=== PATIENT | male | born 1950 | race Caucasian/White ===

== ENCOUNTER 2017-12-08 07:23 | Outpatient (CLI) | payer MEDICARE, OTHER ==
[~2017-12-08] VITALS: Ht 175.3 cm; Wt 50.0 kg
--- NOTE | ~2017-12-08 | HEMODYNAMI ---
PATIENT:ESTHER ROWE MEDICAL RECORD: [id number] : 52 LOCATION:[facility] D.2119 ADMISSION DATE: 12/08/17 Generatedon:12/09/201712:32 Patient name: ESTHER ROWE Patient #: [id number] SSN: : 1950 Date of study: 12/09/2017 Page: Of Hemodynamic Procedure Report Patient Data Patient Demographics Procedure consent was obtained First Name: ESTHER Gender: Male Last Name: JAE : 1950 Patient #: [id number] Age: 67 year(s) Race: Unknown Additional ID: [id number] Contact details Address: [address] [place] [address] State: [place] City: [place] Zip code: [address] Past Medical History Allergies Allergen Reaction Date Comments Reported Penicillins 12/08/2017 Other allergy 12/09/2017 PCN Admission Admission Data Admission Date: 12/08/2017 Admission Time: 7:23 Room #: 2119 Lab Results Lab Result Date: 12/08/2017 Lab Result Time: 0:00 Biochemistry Name Units Result Min Max BUN mg/dl 13 --(--*-)-- 7 18 Creatinine mg/dl 1 --(--*-)-- 0.6 1.3 CBC Name Units Result Min Max Hemoglobin g/dl 11.4 *-(----)-- 13.5 17.5 Procedure Procedure Types Cath Procedure Diagnostic Procedure Sedation Charges Moderate Sedation up to 15 minutes PCI Procedure Coronary Stent Coronary Stent Initial PTCA PTCA Additional Procedure Description Procedure Date Procedure Date: 12/09/2017 Procedure Start Time: 12:00 Procedure End Time: 12:26 Procedure Staff Name Function Pawan Murphy MD Performing Physician Flynn Pete RT Monitor Janet Sousa RT Scrub Yong Blanchard RN Nurse Procedure Data Cath Procedure Fluoroscopy Diagnostic fluoroscopy Total fluoroscopy Time: 8.3 time: 8.3 min min Diagnostic fluoroscopy Total fluoroscopy dose: 474 dose: 474 mGy mGy Contrast Material Contrast Material Type Amount (ml) Isovue 300 99 Entry Location Entry Primary Successful Side Size Upsize Upsize Entry Closure Succes sful Closure Location (Fr) 1 (Fr) 2 (Fr) Remarks Device Remarks Femoral Right 6 Fr Exoseal artery Short Estimated blood loss: 10 ml Procedure Complications No complications Procedure Medications Medication Administration Route Dosage 0.9% NaCl I.V. 100 ml/hr Oxygen etCO2 Nasal cannula 2 l/min Heparin Flush Bag added to field 2 bags (1000units/500ml NS) Lidocaine 2% added to field 20 Versed I.V. 1 mg Fentanyl I.V. 25 mcg Heparin Bolus I.V. 4000 units Fentanyl I.V. 50 mcg Hemodynamics Rest HGB: 11.4 (g/dl) Heart Rate: 65 (bpm) Snapshots Pre Cath Intra NCS Post Cath Vital Signs Time Heart Resp SPO2 etCO2 NIBP (mmHg) Rhythm Pain Sedation Rate (ipm) (%) (mmHg) Status Level (bpm) 11:56:21 64 16 99 23.9 101/60(74) NSR 0 (11) 10(A) , No pain 12:00:58 63 17 100 28.4 91/52(68) NSR 0 (11) 10(A) , No pain 12:05:30 70 22 100 29.9 94/55(64) NSR 0 (11) 10(A) , No pain 12:10:33 72 17 100 25.4 144/78(111) NSR 0 (11) 10(A) , No pain 12:15:14 79 24 100 17.9 148/88(123) NSR 0 (11) 10(A) , No pain 12:19:55 80 23 100 23.9 157/94(129) NSR 0 (11) 10(A) , No pain 12:24:33 83 22 99 3.7 153/95(124) NSR 0 (11) 10(A) , No pain Medications Time Medication Route Dose Verified Delivered Reason Notes Effectiveness by by 11:54:45 0.9% NaCl I.V. 100 Yong Yong Per physician ml/hr Santo Blanchard RN RN 11:55:03 Oxygen etCO2 2 Yong Yong Per physician Nasal l/min Santo cunningham RN RN 11:55:15 Heparin Flush added 2 Ynog Yong used for Bag to bags Santo Blanchard procedure (1000units/500ml field RN RN NS) 11:55:26 Lidocaine 2% added 20ml Yong Yong for local to vial Santo Blanchard anesthetic field RN RN 12:01:17 Versed I.V. 1 mg Yong Yong for sedation Santo Blanchard RN RN 12:01:25 Fentanyl I.V. 25 Yong Yong for sedation mcg Santo Blanchard RN RN 12:01:36 Heparin Bolus I.V. 4000 Yong Yong for units Santo Blanchard anticoagulation RN RN 12:19:46 Fentanyl I.V. 50 Yong Yong for sedation mcg Santo Blanchard RN vascular radiologist Log Time Note 11:30:52 Time tracking: Regular hours (M-F 7:00 - 5:00) 11:30:57 Plan of Care:Hemodynamics will remain stable., Cardiac rhythm will remain stable., Comfort level will be maintained., Respiratory function will remain adequate., Patient/ family verbilizes understanding of procedure., Procedure tolerated without complication., Recovers from procedure without complications.. 11:30:58 Signed procedure consent form obtained from patient. 11:33:05 Janet Sousa RT(R) sent for patient. Start room use. 11:42:57 Patient received from Med II to CCL 1 Alert and oriented. Tansferred to table in Supine position. 11:42:58 Warm blankets applied, and lb hugger turned on for patient comfort. 11:42:58 Correct patient and procedure confirmed by team. 11:43:19 ECG and BP/O2 sat monitors applied to patient. 11:43:20 Pre-procedure instructions explained to patient. 11:43:21 Pre-op teaching completed and patient verbalized understanding. 11:43:22 Family in patients room. 11:43:24 Patient NPO since Midnight. 11:54:45 0.9% NaCl 100 ml/hr I.V. was administered by Yong Blanchard RN; Per physician; 11:55:03 Oxygen 2 l/min etCO2 Nasal cannula was administered by Yong Blanchard RN; Per physician; 11:55:15 Heparin Flush Bag (1000units/500ml NS) 2 bags added to field was administered by Yong Blanchard RN; used for procedure; 11:55:26 Lidocaine 2% 20ml vial added to field was administered by Yong Blanchard RN; for local anesthetic; 11:55:31 Vital chart was started 11:56:23 Baseline sample Acquired. 11:56:26 Rhythm: sinus rhythm 11:56:32 Full Disclosure recording started 11:57:03 H&P Date Dictated: 11/18/2017 Within 30 days and on chart.. 11:57:13 Patient allergic to Other allergyPCN 11:57:14 Is the patient allergic to Iodine/contrast media? No. 11:57:17 Is patient on blood thinner?Yes 11:57:18 Patient diabetic? No. 11:57:22 Previous problem with sedation/anesthesia? No ? 11:57:22 Snore? Yes 11:57:25 Sleep apnea? No 11:57:26 Deviated septum? No 11:57:26 Opens mouth fully? Yes 11:57:27 Sticks out tongue? Yes 11:58:18 Airway obstruction? No ? 11:58:24 Dentures? Yes IN TIGHT 11:58:27 Pre procedure: right dorsailis pedis pulse 2+ Normal; easily identifiable; not easily obliterated 11:58:30 Patient pain scale 0/10 ?. 11:58:34 IV patent on arrival in right forearm with 0.9% NaCl at [facility]. 11:58:37 Lab results completed and on chart. 11:58:40 Right groin area was prepped with chlora-prep and draped in sterile fashion 11:58:40 Alarms reviewed by R. N. 11:58:41 Sharps counted by scrub and verified by R.N. 11:58:44 ACIST Syringe (69813) opened to sterile field. 11:58:45 Bag Decanter () opened to sterile field. 11:58:45 Medline Cath Pack ([id number]) opened to sterile field. 11:58:47 ACIST Hand Control (19635) opened to sterile field. 11:58:47 ACIST Manifold (25443) opened to sterile field. 11:58:48 Tegaderm 4 x 4 (1626W) opened to sterile field. 11:58:51 DIAGNOSTIC WIRE .035 260cm J wire ([id number]) opened to sterile field. 11:59:07 SHEATH Prelude 6Fr 0.035 (YGB-6G-56-035) opened to sterile field. 11:59:07 INFLATOR Merit BasixCompak (PV4196) opened to sterile field. 11:59:12 CHOICE PT Extra Support 182cm wire ([id number]) opened to sterile field. :59: Physician arrived :59: --------ALL STOP TIME OUT------ 11:59:22 Final Timeout: patient, procedure, and site verified with staff and physician. All members of the team are in agreement. :59:23 Right groin site verified by team. :59:25 Physical assessment completed. ASA score P 2 - A patient with mild systemic disease as per Pawan Murphy MD. :59:28 Sedation plan: IV Moderate Sedation Medication:Versed, Fentanyl 12:00:10 Procedure started. 12:00:12 Local anesthetic to right femoral artery with Lidocaine 2% by Pawan Murphy MD.INITIAL ACCESS ONLY 12:00:20 A 6 Fr Short sheath was inserted into the Right Femoral artery 12:00:51 Zero performed for pressure channel P1 12:01:10 GUIDE 6FR EBU 4.0 guide catheter ([id number]) opened to sterile field. 12:01:17 Versed 1 mg I.V. was administered by Yong Blanchard RN; for sedation; 12:01:18 6 Fr EBU 4 guide catheter was inserted over the wire 12:01:25 Fentanyl 25 mcg I.V. was administered by Yong Blanchard RN; for sedation; 12:01:36 Heparin Bolus 4000 units I.V. was administered by Yong Blanchard RN; for anticoagulation; 12:02:06 CHOICE PT ES wire advanced. 12:02:39 Wire advanced across lesion. 12:04:34 The RODRIGO RX 2.5 x 18 stent ([id number]) was advanced then removed because of failure to cross lesion 12:06:09 Inflate balloon Inflation number: 1 A EUPHORA 2.5 x 12 Balloon ([id number]) was prepped and advanced across the Dist CX, then inflated to 15 HUMBERTO for 0:10 (min:sec). 12:06:19 Inflation number: 2 The EUPHORA 2.5 x 12 Balloon ([id number]) was reinflated across the Dist CX, to 15 HUMBERTO for 0:10 (min:sec). 12:06:28 Inflation number: 3 The EUPHORA 2.5 x 12 Balloon ([id number]) was reinflated across the Dist CX, to 15 HUMBERTO for 0:10 (min:sec). 12:08:57 Place stent Inflation Number: 4 A RODRIGO RX 2.5 x 18 stent ([id number]) was prepped and advanced across the Dist CX. The stent was deployed at 15 HUMBERTO for 0:10 (min:sec). 12:09:45 Inflation number: 5 The stent balloon was then re-inflated across the Dist CX to 15 HUMBERTO for 0:10 (min:sec). 12:11:08 Stent catheter was removed intact over wire. 12:11:35 Place stent Inflation Number: 6 A INTEGRITY RX 2.25 x 08 stent ([id number]) was prepped and advanced across the Dist CX. The stent was deployed at 19 HUMBERTO for 0:10 (min:sec). 12:11:52 Stent catheter was removed intact over wire. 12:13:15 Inflation number: 1 The stent balloon was then re-inflated across the Mid CX to 17 HUMBERTO for 0:10 (min:sec). 12:13:21 Inflation number: 2 The stent balloon was then re-inflated across the Mid CX to 21 HUMBERTO for 0:10 (min:sec). 12:14:05 Stent catheter was removed intact over wire. 12:14:05 Wire removed. 12:14:11 CHOICE PT Extra Support 182cm wire ([id number]) opened to sterile field. 12:14:20 CHOICE PT ES wire advanced to OM 1. 12:17:36 Inflate balloon Inflation number: 1 A EUPHORA 1.5 x 12 balloon ([id number]) was prepped and advanced across the 1st Ob Ashley, then inflated to 21 HUMBERTO for 0:10 (min:sec). 12:18:06 Inflation number: 2 The EUPHORA 1.5 x 12 balloon ([id number]) was reinflated across the 1st Ob Ashley, to 21 HUMBERTO for 0:10 (min:sec). 12:18:24 Balloon removed over the wire. 12:18:25 Wire removed. 12:18:25 Guide catheter removed. 12:18:39 EXOSEAL 6Fr (EX600) opened to sterile field. 12:19:27 Sheath removed intact; hemostasis achieved with Exoseal to the Right Femoral artery. 12:19:29 Procedure ended.(Physican Out) 12:19:46 Fentanyl 50 mcg I.V. was administered by Yong Blanchard RN; for sedation; 12:23:06 Fluoroscopy time 08.30 minutes. 12:23:09 Flurop Dose total: 474 12:23:09 Fluoroscopy dose: 474 mGy 12:23:14 Contrast amount:Isovue 300 99ml. 12:23:15 Sharps counted by scrub and verified by R.N. 12:23:16 Insertion/operative site no bleeding no hematoma. 12:23:20 Post-op/insertion site Right Femoral artery dressed using a 4 x 4 and Tegaderm. 12:23:23 Post right femoral artery:stable, soft, clean and dry 12:23:24 Post Procedure Pulses reassessed and unchanged 12:23:26 Post-procedure physical assessment completed. ASA score P 2 - A patient with mild systemic disease as per Pawan Murphy MD. 12:23:28 Post procedure rhythm: unchanged. 12:23:32 Estimated blood loss: 10 ml 12:23:33 Post procedure instruction explained to patient.Patient verbalizes understanding. 12:23:33 Patient needs reinforcement of post procedure teaching. 12:23:54 Procedure type changed to Cath procedure, Diagnostic procedure, Sedation Charges, Moderate Sedation up to 15 minutes, PCI procedure, Coronary Stent, Coronary Stent Initial, PTCA, PTCA Additional 12:26:15 Procedure and supply charges have been captured, reviewed, submitted and are correct. 12:26:18 Procedure Complication : No complications 12:26:20 Vital chart was stopped 12:26:20 See physician's report for complete and final results. 12::24 Report given to Pre/Post Procedure Room. 12:26:27 Patient transfered to Pre/Post Procedure Room with Stretcher. 12::34 Procedure ended. 12::34 Full Disclosure recording stopped 12::42 End room use (Document Last) Intervention Summary Intervention Notes Time ActionType Lesion and Equipment Used Action# Pressure Duration Attributes 12:04:34 Discard RODRIGO RX 2.5 x Stent 18 stent ([id number]) 12:06:09 Inflate Dist CX EUPHORA 2.5 x 1 15 00:10 balloon 12 Balloon ([id number]) 12:06:19 Reinflate Dist CX EUPHORA 2.5 x 2 15 00:10 balloon 12 Balloon ([id number]) 12:06:28 Reinflate Dist CX EUPHORA 2.5 x 3 15 00:10 balloon 12 Balloon ([id number]) 12:08:57 Place stent Dist CX RODRIGO RX 2.5 x 4 15 00:10 18 stent ([id number]) 12:09:45 Reinflate Dist CX RODRIGO RX 2.5 x 5 15 00:10 stent 18 stent balloon ([id number]) 12:11:35 Place stent Dist CX INTEGRITY RX 6 19 00:10 2.25 x 08 stent ([id number]) 12:13:15 Reinflate Mid CX RODRIGO RX 2.5 x 1 17 00:10 stent 18 stent balloon ([id number]) 12:13:21 Reinflate Mid CX RODRIOG RX 2.5 x 2 21 00:10 stent 18 stent balloon ([id number]) 12:17:36 Inflate 1st Ob Ashley EUPHORA 1.5 x 1 21 00:10 balloon 12 balloon ([id number]) 12:18:06 Reinflate 1st Ob Ashley EUPHORA 1.5 x 2 21 00:10 balloon 12 balloon ([id number]) Device Usage Item Name Manufacture Quantity Catalog Number Hospital Part Current Minimal Lot# / Charge Number Stock Stock Serial# Code ACIST Syringe Acist 1 38788 175483 391756 888267 20 (84966) [employer] Bag Decanter Microtek 1 2001S 569174 30944 201291 5 () Medical Inc. Medline Cath Cardinal 1 [id number] 607214 06455 116311 5 [facility] ([id number]) ACIST Hand Acist 1 84004 665961 214160 248796 5 Control (04264) [employer] ACIST Manifold Acist 1 89233 293521 609736 958252 5 (20680) [employer] Tegaderm 4 x 4 3M 1 1626W 448403 432966 655456 5 (1626W) DIAGNOSTIC WIRE St Johann 1 883890 972560 290686 190293 30 .035 260cm J wire (213221) SHEATH Prelude Merit 1 PCA-7I-03-35 680258 5749935 576613 5 6Fr 0.035 Medical (GXU-7R-22-035) INFLATOR Merit Merit 1 [id number] 021702 145640 511010 15 Package [employer]bur[employer] (PZ3192) CHOICE PT Extra Vershire 2 [id number] 930590 634543 694279 5 Support 182cm Scientific wire ([id number]) GUIDE 6FR EBU Medtronic 1 [id number] 177379 73961 477639 1 4.0 guide catheter ([id number]) RODRIGO RX 2.5 x Medtronic 1 [id number] 114149 8754484 210803 5 [id number] 18 stent ([id number]) EUPHORA 2.5 x Medtronic 1 [id number] 508554 522814 859344 5 [id number] 12 Balloon ([id number]) INTEGRITY RX Medtronic 1 [id number] 941457 623027 477276 5 [id number] 2.25 x 08 stent ([id number]) EUPHORA 1.5 x Medtronic 1 [id number] 578960 976965 781702 5 [id number] 12 balloon ([id number]) EXOSEAL 6Fr Cardinal 1 EX600 103870 960252 347261 10 (EX600) Health Signature Audit [place] Stage Time Signature Unsigned Intra-Procedure 12/09/2017 Flynn Pete 12:31:57 PM RT(R) Signatures Monitor : Flynn Pete RT Signature : Date : Time : [facility] [address] [place] [address]
--- NOTE | ~2017-12-08 | OP ---
PATIENT NAME: ESTHER ROWE MEDICAL RECORD: [id number] :52 LOCATION:D.CAT ADMISSION DATE: SURGEON: LETICIA ALAN MD DATE OF OPERATION: 12/09/2017 PROCEDURES: 1. PTCA stent left circumflex. 2. PTCA first obtuse marginal. 3. Selective coronary angiography. INDICATION: Angina and coronary artery disease. PROCEDURE IN DETAIL: After informed consent was obtained and after detailed explanation of risks, benefits as well as alternative therapies, the patient elected to proceed with angiogram and angioplasty. The right femoral area was prepped and draped in normal sterile fashion. Right femoral artery was cannulated via modified Seldinger technique with placement of 6-[place] sheath. All catheters exchanged through this sheath. FINDINGS: The left circumflex has 95% stenosis distally. This was addressed with a 2.5 x 18 Colby and 2.25 x 8 mm Integrity, this caused plaque shift into the first obtuse marginal. This was ballooned with a 1.5 balloon. Result was 0% residual. OVERALL IMPRESSION: Successful PTCA stent of the left circumflex going from 95% initial stenosis to 0% residual. TRANSINT:[id number] Voice Confirmation ID: [id number] DOCUMENT ID: [id number] LETICIA ALAN MD at 1403 CC: [id number] DICTATION DATE: 12/09/17 1223 LOAD DISPATCHER LOCAL: 12/09/17 1329 DEP CLI 12/09/17 [place] [address]
--- NOTE | ~2017-12-08 | HEMODYNAMI ---
PATIENT:ESTHER ROWE MEDICAL RECORD: [id number] : 52 LOCATION:[facility] ADMISSION DATE: 12/08/17 Generatedon:12/08/20179:45 Patient name: ESTHER ROWE Patient #: [id number] SSN: : 1950 Date of study: 12/08/2017 Page: Of Hemodynamic Procedure Report Patient Data Patient Demographics Procedure consent was obtained First Name: ESTHER Gender: Male Last Name: JAE : 1950 Patient #: [id number] Age: 67 year(s) Race: Unknown Additional ID: [id number] Contact details [address]: [address] [place] [address] State: [place] City: [place] Zip code: [address] Past Medical History Allergies Allergen Reaction Date Comments Reported Penicillins 12/08/2017 Admission Admission Data Admission Date: 12/08/2017 Admission Time: 7:23 Lab Results Lab Result Date: 12/08/2017 Lab Result Time: 0:00 Biochemistry Name Units Result Min Max BUN mg/dl 13 --(--*-)-- 7 18 Creatinine mg/dl 1 --(--*-)-- 0.6 1.3 CBC Name Units Result Min Max Hemoglobin g/dl 11.4 *-(----)-- 13.5 17.5 Procedure Procedure Types Cath Procedure Diagnostic Procedure [facility] w/Coronaries PCI Procedure Coronary Stent Coronary Stent Initial Procedure Description Procedure Date Procedure Date: 12/08/2017 Procedure Start Time: 9:32 Procedure End Time: 9:45 Procedure Staff Name Function Pawan Murphy MD Performing Physician Flynn Pete RT Monitor Janet Sousa RT Scrub Yong Blanchard RN Nurse Arleth Pandey RN Contract Implementation Analyst Procedure Data Cath Procedure Fluoroscopy Diagnostic fluoroscopy Total fluoroscopy Time: 3.5 time: 3.5 min min Diagnostic fluoroscopy Total fluoroscopy dose: 276 dose: 276 mGy mGy Contrast Material Contrast Material Type Amount (ml) Isovue 300 74 Entry Location Entry Primary Successful Side Size Upsize Upsize Entry Closure Lloyd ccessful Closure Location (Fr) 1 (Fr) 2 (Fr) Remarks Device Remarks Radial Right 6 Fr Mechanical artery Short Compression Estimated blood loss: 10 ml Diagnostic catheters Device Type Used For End Catheter Placement DIAGNOSTIC [place] 110cm 5 Procedure Fr catheter ([id number]) Procedure Complications No complications Procedure Medications Medication Administration Route Dosage 0.9% NaCl I.V. 100 ml/hr Oxygen etCO2 Nasal cannula 2 l/min Heparin Flush Bag added to field 2 bags (1000units/500ml NS) Lidocaine 2% added to field 20 Radial Cocktail added to field 1 syringe (Verapomil 2mg/Nitro 400mcg/Heparin 1500units) Versed I.V. 0.5 mg Fentanyl I.V. 25 mcg Radial Cocktail I.A. 1 syringe (Verapomil 2mg/Nitro 400mcg/Heparin 1500units) Heparin Bolus I.V. 4000 units Hemodynamics Rest HGB: 11.4 (g/dl) Heart Rate: 69 (bpm) Snapshots Pre Cath Intra NCS Post Cath Vital Signs Time Heart Resp SPO2 etCO2 NIBP Rhythm Pain Sedation Rate (ipm) (%) (mmHg) (mmHg) Status Level (bpm) 9:20:45 71 24 100 15.7 101/68(83) NSR 0 (11) 10(A) , No pain 9:25:17 71 22 100 20.2 99/61(83) NSR 0 (11) 10(A) , No pain 9:29:50 71 23 100 15.7 96/62(80) NSR 0 (11) 10(A) , No pain 9:34:22 80 20 100 17.9 84/53(71) NSR 0 (11) 10(A) , No pain 9:38:53 75 22 96 1.4 81/50(64) NSR 0 (11) 10(A) , No pain 9:43:47 76 18 99 24.7 109/68(92) NSR 0 (11) 10(A) , No pain Medications Time Medication Route Dose Verified Delivered Reason Note s Effectiveness by by 9:18:50 0.9% NaCl I.V. 100 Yong Yong Per physician ml/hr Santo Blanchard RN RN 9:19:02 Oxygen etCO2 2 l/min Yong Yong Per physician Nasal Santo Blanchard cannula RN RN 9:19:22 Heparin Flush added 2 bags Yong Yong used for Bag to Santo Blanchard procedure (1000units/500ml field RN RN NS) 9:19:34 Lidocaine 2% added 20ml Yong Yong for local to vial Lorigan Santo anesthetic field RN RN 9:19:55 Radial Cocktail added 1 Yong Yong used for (Verapomil to syringe Lorigan Santo procedure 2mg/Nitro RN RN 400mcg/Heparin 1500units) 9:30:27 Versed I.V. 0.5 mg Yong Yong for sedation Santo Blanchard RN RN 9:30:37 Fentanyl I.V. 25 mcg Yong Yong for sedation Santo Blanchard RN RN 9:33:14 Radial Cocktail I.A. 1 Yong Pawan for (Verapomil syringe Lorigan Tauth MD vasodilation 2mg/Nitro RN 400mcg/Heparin 1500units) 9:37:21 Heparin Bolus I.V. 4000 Yong Yong for units Lorashly Blanchard anticoagulation RN recreation therapy director Log Time Note 9:06:11 Arleth Pandey RN sent for patient. Start room use. 9:06:12 Time tracking: Regular hours (M-F 7:00 - 5:00) 9:06:16 Plan of Care:Hemodynamics will remain stable., Cardiac rhythm will remain stable., Comfort level will be maintained., Respiratory function will remain adequate., Patient/ family verbilizes understanding of procedure., Procedure tolerated without complication., Recovers from procedure without complications.. 9:06:28 H&P Date Dictated: 11/18/2017 Within 30 days and on chart., H&P Addendum completed by physician on day of procedure. (MUST COMPLETE FOR ALL OUTPATIENTS). 9:06:35 Patient allergic to Penicillins 9:08:45 Lab Result : BUN 13 mg/dl 9:08:45 Lab Result : Creatinine 1 mg/dl 9:08:45 Lab Result : Hemoglobin 11.4 g/dl 9:12:34 Patient received from Pre/Post Procedure Room to CCL 1 Alert and oriented. Tansferred to table in Supine position. 9:12:35 Warm blankets applied, and lb hugger turned on for patient comfort. 9:12:36 Correct patient and procedure confirmed by team. 9:12:37 Signed procedure consent form obtained from patient. 9:12:38 ECG and BP/O2 sat monitors applied to patient. 9:18:50 0.9% NaCl 100 ml/hr I.V. was administered by Yong Blanchard RN; Per physician; 9:19:02 Oxygen 2 l/min etCO2 Nasal cannula was administered by Yong Blanchard RN; Per physician; 9:19:22 Heparin Flush Bag (1000units/500ml NS) 2 bags added to field was administered by Yong Blanchard RN; used for procedure; 9:19:34 Lidocaine 2% 20ml vial added to field was administered by Yong Blanchard RN; for local anesthetic; 9:19:55 Radial Cocktail (Verapomil 2mg/Nitro 400mcg/Heparin 1500units) 1 syringe added to field was administered by Yong Blanchard RN; used for procedure; 9:19:57 Vital chart was started 9:27:09 Baseline sample Acquired. 9:27:14 Rhythm: sinus rhythm 9:27:15 Full Disclosure recording started 9:27:16 Pre-procedure instructions explained to patient. 9:27:16 Pre-op teaching completed and patient verbalized understanding. 9:27:18 Family in waiting room. 9:27:20 Patient NPO since Midnight. 9:27:22 Is the patient allergic to Iodine/contrast media? No. 9:27:23 Is patient on blood thinner?Yes 9:27:27 ACC The patient was administered the following blood thiners within the last 24 hours: ACCPlavix 9:27:29 Patient diabetic? No. 9:27:32 Previous problem with sedation/anesthesia? No ? 9:27:32 Snore? Yes 9:27:33 Sleep apnea? Yes 9:27:34 Deviated septum? No 9:27:35 Opens mouth fully? Yes 9:27:35 Sticks out tongue? Yes 9:27:37 Airway obstruction? No ? 9:27:40 Dentures? Yes in tight 9:27:46 Patient pain scale 0/10 ?. 9:27:47 Modified Branden's test Ulnar < 7 seconds 9:27:59 IV patent on arrival in right forearm with 0.9% NaCl at [facility]. 9:28:02 Lab results completed and on chart. 9:28:07 Right Radial & Right Groin area was prepped with chlora-prep and draped in sterile fashion 9:28:08 Alarms reviewed by R. N. 9:28:09 Sharps counted by scrub and verified by R.N. 9:28:11 Use device set Radial Dx or PCI 9:28:12 ACIST Syringe (19162) opened to sterile field. 9:28:12 Medline Cath Pack ([id number]) opened to sterile field. 9:28:13 ACIST Hand Control (92569) opened to sterile field. 9:28:14 ACIST Manifold (28337) opened to sterile field. 9:28:14 Tegaderm 4 x 4 (1626W) opened to sterile field. 9:28:15 MBrace Wrist Support ([id number]) opened to sterile field. 9:28:17 Bag Decanter (2002S) opened to sterile field. 9:28:18 DIAGNOSTIC WIRE .035 260cm J wire (967182) opened to sterile field. 9:28:19 SHEATH 6Fr Prelude Radial ([id number]) opened to sterile field. 9:28:41 Physician arrived 9::42 --------ALL STOP TIME OUT------ 9:28:42 Final Timeout: patient, procedure, and site verified with staff and physician. All members of the team are in agreement. 9:28:44 Right Radial & Right Groin site verified by team. 9:28:46 Physical assessment completed. ASA score P 2 - A patient with mild systemic disease as per Pawan Murphy MD. 9:28:48 Sedation plan: IV Moderate Sedation Medication:Versed, Fentanyl 9:30:27 Versed 0.5 mg I.V. was administered by Yong Blanchard RN; for sedation; 9:30:37 Fentanyl 25 mcg I.V. was administered by Yogn Blanchard RN; for sedation; 9:32:20 Procedure started. 9:32:24 Local anesthetic to right radial artery with Lidocaine 2% by Pawan Murphy MD.INITIAL ACCESS ONLY 9:32:32 A 6 Fr Short sheath was inserted into the Right Radial artery 9:32:37 A DIAGNOSTIC [place] 110cm 5 Fr catheter (410278) was advanced over the wire and used for Procedure. 9:33:01 LV gram done using ABBOTT 9:33:03 Injector settings: Ml/sec: 5, Volume: 15, 9:33:14 Radial Cocktail (Verapomil 2mg/Nitro 400mcg/Heparin 1500units) 1 syringe I.A. was administered by Pawan Murphy MD; for vasodilation; 9:33:19 EF : 50 % 9:33:39 RCA angiography performed. 9:34:17 CHOICE PT Extra Support 182cm wire ([id number]) opened to sterile field. 9:34:18 INFLATOR Merit BasixCompak (IS9290) opened to sterile field. 9:34:23 LCA angiography performed. 9:36:48 Catheter exchanged over wire. 9:36:58 GUIDE 6FR AR 2.0 catheter (AH0EC70) opened to sterile field. 9:37:09 6 Fr AR 2.0 guide catheter was inserted over the wire 9:37:15 CHOICE PT ES wire advanced. 9:37:21 Heparin Bolus 4000 units I.V. was administered by Yong Blanchard RN; for anticoagulation; 9:37:47 Wire advanced across lesion. 9:39:05 Place stent Inflation Number: 1 A RODRIGO RX 3.0 x 38 stent ([id number]) was prepped and advanced across the Mid RCA. The stent was deployed at 19 HUMBERTO for 0:10 (min:sec). 9:39:27 Inflation number: 2 The stent balloon was then re-inflated across the Mid RCA to 21 HUMBERTO for 0:10 (min:sec). 9:40:17 Inflation number: 3 The stent balloon was then re-inflated across the Mid RCA to 7 HUMBERTO for 0:15 (min:sec). 9:41:01 Stent catheter was removed intact over wire. 9:41:03 Wire removed. 9:41:03 Guide catheter removed. 9:41:06 TR BAND Standard ([id number]) opened to sterile field. 9:41:14 Sheath removed intact; hemostasis achieved with Mechanical Compression to the Right Radial artery. 9:41:16 Procedure ended.(Physican Out) 9:43:32 Fluoroscopy time 03.50 minutes. 9:43:38 Fluoroscopy dose: 276 mGy 9:43:38 Flurop Dose total: 276 9:43:43 Contrast amount:Isovue 300 74ml. 9:43:44 Sharps counted by scrub and verified by R.N. 9:43:46 TR band inflated with 10cc of air. 9:43:47 Insertion/operative site no bleeding no hematoma. 9:43:53 Post right radial artery:stable, soft, clean and dry 9:43:54 Post Procedure Pulses reassessed and unchanged 9:43:56 Post-procedure physical assessment completed. ASA score P 2 - A patient with mild systemic disease as per Pawan Murphy MD. 9:43:58 Post procedure rhythm: unchanged. 9:44:06 Estimated blood loss: 10 ml 9:44:08 Post procedure instruction explained to patient.Patient verbalizes understanding. 9:44:08 Patient needs reinforcement of post procedure teaching. 9:44:23 Procedure type changed to Cath procedure, Diagnostic procedure, LHC, LHC w/Coronaries, PCI procedure, Coronary Stent, Coronary Stent Initial 9:44:58 Procedure and supply charges have been captured, reviewed, submitted and are correct. 9:44:59 Procedure Complication : No complications 9:45:01 Vital chart was stopped 9:45:02 See physician's report for complete and final results. 9:45:03 Report given to PCU. 9:45:07 Patient transfered to PCU with Stretcher. 9:45:09 Procedure ended. 9:45:09 Full Disclosure recording stopped 9:45:27 End room use (Document Last) Intervention Summary Intervention Notes Time ActionType Lesion and Equipment Used Action# Pressure Duration Attributes 9:39:05 Place stent Mid RCA RODRIGO RX 3.0 x 1 19 00:10 38 stent ([id number]) 9:39:27 Reinflate Mid RCA RODRIGO RX 3.0 x 2 21 00:10 stent 38 stent balloon ([id number]) 9:40:17 Reinflate Mid RCA RODRIGO RX 3.0 x 3 7 00:15 stent 38 stent balloon ([id number]) Device Usage Item Name Manufacture Quantity Catalog Number Hospital Part Current Minimal Lot# / Charge Number Stock Stock Serial# Code ACIST Syringe Acist 1 27285 624700 913195 373712 20 (69326) Medical Systems Re[employer]uron Group Medline Cath Cardinal 1 [id number] 528707 58314 755890 5 Pack Health ([id number]) ACIST Hand Acist 1 31294 487687 205517 666616 5 Control (70686) Medical Systems Inc ACIST Manifold Acist 1 13227 275820 947028 580638 5 (99474) Medical Systems Inc Tegaderm 4 x 4 3M 1 1626W 891620 406588 040138 5 (1626W) MBrace Wrist Advanced 1 140-0250-00 603915 70451 898500 5 Support Vascular ([id number]) Dynamics Bag Decanter Microtek 1 2002S 508514 70677 926873 5 (2001S) Medical Inc. DIAGNOSTIC WIRE St Johann 1 581891 354294 482823 634649 30 .035 260cm J wire (162012) SHEATH 6Fr Merit 1 [id number] 402972 044752 250854 5 Prelude Radial Medical ([id number]) DIAGNOSTIC Terumo 1 40-2303 979281 705697 126121 5 [place] 110cm 5 Fr catheter (218103) CHOICE PT Extra Vilas 1 [id number] 681977 037845 840967 5 Support 182cm Scientific wire ([id number]) INFLATOR Merit Merit 1 JI4795 357070 824482 254966 15 Exhibition A Medical ([id number]) GUIDE 6FR AR Medtronic 1 [id number] 799986 13823 992868 1 2.0 catheter ([id number]) RODRIGO RX 3.0 x Medtronic 1 [id number] 814152 0276769 678887 5 [id number] 38 stent ([id number]) TR BAND Terumo 1 [id number] 450311 190396 011513 40 Standard ([id number]) Signature Audit [place] Stage Time Signature Unsigned Intra-Procedure 12/08/2017 Flynn Pete 9:45:48 AM RT(R) Signatures Monitor : Flynn Pete RT Signature : Date : Time : [facility] [address] [place] [address]
--- NOTE | ~2017-12-08 | OP ---
PATIENT NAME: ESTHER ROWE MEDICAL RECORD: [id number] :52 LOCATION:D.CAT ADMISSION DATE: SURGEON: LETICIA ALAN MD DATE OF OPERATION: 12/08/2017 PROCEDURES: 1. PTCA stent RCA. 2. Left heart catheterization. 3. Selective coronary angiography. 4. Left ventriculogram. INDICATION: Angina and coronary artery disease. PROCEDURE IN DETAIL: After informed consent was obtained and after detailed explanation of risks, benefits as well as alternative therapies, the patient elected to proceed with angiogram and angioplasty. The right radial area was prepped and draped in normal sterile fashion. Right radial artery was cannulated via modified Seldinger technique with placement of 6-Maltese sheath. All catheters exchanged through this sheath. FINDINGS: Left ventriculogram was performed in standard 30-degree ABBOTT view reveals good cardiac wall motion throughout all segments. Overall ejection fraction preserved at 50%. SELECTIVE CORONARY ANGIOGRAPHY: 1. Left main is with no significant angiographic disease. 2. Left anterior descending has at least 70% stenosis in the proximal mid vessel. 3. Left circumflex has a long area of 80% and 90% stenosis throughout the mid vessel. 4. The right coronary has a long area of 80% and 90% stenosis throughout the mid vessel. PTCA STENT OF THE RCA: The stent used was a 3.0 x 38 mm Col[place]. Result was 0% residual stenosis. OVERALL IMPRESSION: Successful PTCA stent of the RCA going from 90% initial stenosis to 0% residual. PLAN: PTCA stent of the LAD and circumflex in the near future. TRANSINT:[id number] Voice Confirmation ID: [id number] DOCUMENT ID: [id number] LETICIA ALAN MD at 1403 CC: [id number] DICTATION DATE: 12/08/17 0945 BICYCLE REPAIRMAN: 12/08/17 1118 [facility] CLI 12/09/17 [place] [id number]
--- NOTE | ~2017-12-08 | DS ---
PATIENT:ESTHER FOLEY :52 MEDICAL RECORD: [id number] DISCHARGE SUMMARY ADMISSION DATE: 12/08/17 DISCHARGE DATE: 12/09/17 DATE OF DISCHARGE: 12/09/2017 DISCHARGE DIAGNOSES: 1. Angina. 2. Coronary artery disease. 3. Percutaneous transluminal coronary angioplasty stent of right coronary artery and left circumflex this admission. HOSPITAL COURSE: Mr. Foley presents with anginal symptomatology, found to have 3-vessel coronary artery disease, underwent successful PTCA stent of the RCA and circumflex. He was discharged home with the addition of aspirin and Plavix to his medical regimen and will be brought back next week for PTCA stent of the LAD. TRANSINT:[id number] Voice Confirmation ID: [id number] DOCUMENT ID: [id number] LETICIA ALAN MD at 1403 CC: [id number] DICTATION DATE: 12/09/17 1224 PAVILION CUTTER: 12/09/17 1511 [facility] CLI 12/09/17 [place] [address] [place] [address]
[2017-12-08] MEDS ORDERED: FISH OIL 1,0001 CA1 PO (07:33)
[2017-12-08] MEDS ORDERED: PLAVIX75 MG PO (07:33)
[2017-12-08] MEDS ORDERED: BAYER CHEWABLE81 MG PO (07:33)
[2017-12-08] MEDS ORDERED: CO Q-10200 MG PO (07:34)
[2017-12-08 07:54] VITALS: BP 123/69; BMI 16.2
[2017-12-08 08:07] LABS: BASOPHILS 0.2 % (0-2); EOSINOPHILS 0.6 % (0-7); HEMATOCRIT 33.1 % (42.0-54.0); HEMOGLOBIN 11.4 g/dL (13.5-17.5); IMMATURE GRANULOCYTES 0.3 % (0-5); LYMPHOCYTES 4.8 % (15-50); MCH 30.9 pg (26.0-34.0); MCHC 34.4 g/dL (31.0-37.0); MCV 89.7 fL (80.0-100.0); MEAN PLATELET VOLUME 8.4 fL (7.4-10.4); MONOCYTES 12.4 % (2-11); NEUTROPHILS 81.7 % (40-80); PLATELET COUNT 388 10x3/uL (130-400); RBC 3.69 10x6/uL (4.20-6.10); WBC 6.6 10x3/uL (4.8-10.8)
[2017-12-08 08:17] LABS: CALC OSMOLALITY 256 mosm/kg (275-300); CALCIUM 9.1 mg/dL (8.5-10.1); CHLORIDE - SERUM 94 mmol/L (98-107); GLUCOSE 100 mg/dL (74-106); POTASSIUM - SERUM 4.8 mmol/L (3.5-5.1); SODIUM 128 mmol/L (136-145); UREA NITROGEN 13 mg/dL (7-18); eGFR NON AFRICAN AMERICAN 79 mL/min (90-120)
[2017-12-08 10:23] VITALS: BP 103/63; Ht 175.3 cm; Wt 50.0 kg
[2017-12-08 11:40] VITALS: BP 109/66
[2017-12-08 15:51] VITALS: BP 112/71
[2017-12-08 20:00] VITALS: BP 139/79
[2017-12-09] VITALS: BP 109/64; BP 133/73
[2017-12-09 04:00] VITALS: BP 98/66
[2017-12-09 07:51] VITALS: BP 102/64
[2017-12-09 11:25] VITALS: BP 103/64
[2017-12-09] MEDS ORDERED: BAYER CHEWABLE81 MG PO (12:39)
== END 2017-12-09 17:10 | disposition home or self-care (01) ==
LOC: D.M2 07:23 → D.CATH 07:23 → D.M2 09:06 → D.CATH 09:30 → D.CLR 12-09 12:39 → D.CATH 12-09 17:10
PROVIDERS: Internal Medicine Interventional Cardiology
DX: I25.119 Atherosclerotic heart disease of native coronary artery with unspecified angina pectoris (principal); R94.30 Abnormal result of cardiovascular function study, unspecified; R06.02 Shortness of breath; I42.0 Dilated cardiomyopathy; E78.5 Hyperlipidemia, unspecified; I50.9 Heart failure, unspecified; Z01.812 Encounter for preprocedural laboratory examination
CPT/HCPCS: 93458; 92921; C9600 ×2

== ENCOUNTER → 2017-12-15 07:27 | Outpatient (CLI) | payer MEDICARE, OTHER ==
[~2017-12-15] VITALS: Ht 175.3 cm; Wt 48.6 kg
--- NOTE | ~2017-12-15 | HEMODYNAMI ---
PATIENT:ESTHER ROWE MEDICAL RECORD: [id number] : 52 LOCATION:[facility] ADMISSION DATE: 12/15/17 Generatedon:12/15/20179:43 Patient name: ESTHER ROWE Patient #: [id number] SSN: : 1950 Date of study: 12/15/2017 Page: Of Hemodynamic Procedure Report Patient Data Patient Demographics Procedure consent was obtained First Name: ESTHER Gender: Male Last Name: JAE : 1950 Patient #: [id number] Age: 67 year(s) Race: Unknown Additional ID: [id number] Contact details [address]: [address] [place] [address] State: [place] City: [place] Zip code: [address] Past Medical History Allergies Allergen Reaction Date Comments Reported Penicillins 12/08/2017 Other allergy 12/09/2017 PCN Admission Admission Data Admission Date: 12/15/2017 Admission Time: 7:27 Procedure Procedure Types Cath Procedure PCI Procedure Coronary Stent Coronary Stent Initial Procedure Description Procedure Date Procedure Date: 12/15/2017 Procedure Start Time: 9:28 Procedure End Time: 9:40 Procedure Staff Name Function Pawan Murphy MD Performing Physician Mary Ellen Starks RT Scrub Arleth Pandey RN Nurse Steve Bennett RT Monitor Procedure Data Cath Procedure Fluoroscopy Diagnostic fluoroscopy Total fluoroscopy Time: 1.8 time: 1.8 min min Diagnostic fluoroscopy Total fluoroscopy dose: 242 dose: 242 mGy mGy Contrast Material Contrast Material Type Amount (ml) Isovue 300 56 Entry Location Entry Primary Successful Side Size Upsize Upsize Entry Closure Lloyd ccessful Closure Location (Fr) 1 (Fr) 2 (Fr) Remarks Device Remarks Radial Right 6 Fr Mechanical artery Short Compression Estimated blood loss: 10 ml Procedure Complications No complications Procedure Medications Medication Administration Route Dosage Oxygen NC 2 l/min Lidocaine 1% added to field 20 Heparin Flush Bag added to field 2 bags (1000units/500ml NS) 0.9% NaCl I.V. 100 ml/hr Versed I.V. 1 mg Fentanyl I.V. 50 mcg Radial Cocktail I.A. 1 syringe (Verapomil 2mg/Nitro 400mcg/Heparin 1500units) Versed I.V. 1 mg Fentanyl I.V. 50 mcg Heparin Bolus I.V. 4000 units Hemodynamics Rest HGB: 11.4 (g/dl) Heart Rate: 77 (bpm) Snapshots Pre Cath Intra NCS Post Cath Vital Signs Time Heart Resp SPO2 etCO2 NIBP Rhythm Pain Sedation Rate (ipm) (%) (mmHg) (mmHg) Status Level (bpm) 8:56:10 77 24 96 11.9 102/64(79) NSR 0 (11) 10(A) , No pain 9:00:16 75 24 96 0 106/69(89) NSR 0 (11) 10(A) , No pain 9:04:19 76 24 95 20.2 100/66(84) NSR 0 (11) 10(A) , No pain 9:08:23 72 19 97 16.4 100/57(72) NSR 0 (11) 10(A) , No pain 9:12:27 72 18 96 26.9 98/54(70) NSR 0 (11) 10(A) , No pain 9:16:29 72 18 98 26.9 94/60(70) NSR 0 (11) 10(A) , No pain 9:20:28 71 15 99 30.7 103/58(76) NSR 0 (11) 10(A) , No pain 9:24:32 73 20 99 28.4 92/59(72) NSR 0 (11) 10(A) , No pain 9:28:31 71 18 100 29.9 97/58(73) NSR 0 (11) 9(A) , No pain 9:32:35 82 21 96 26.2 85/50(64) NSR 0 (11) 9(A) , No pain 9:36:35 80 18 98 0 81/53(61) NSR 0 (11) 9(A) , No pain 9:38:36 78 17 97 29.2 85/53(62) NSR 0 (11) 10(A) , No pain Medications Time Medication Route Dose Verified Delivered Reason Notes Effectiveness by by 9:04:51 Oxygen NC 2 l/min Pawan Reinoso used for Jeffrey Pandey RN procedure 9:15:58 Lidocaine 1% added 20ml Pawan Villalta for local to vial Jeffrey Murphy MD anesthetic field 9:16:06 Heparin Flush added 2 bags Pawan Villalta used for Bag to Jeffrey Murphy MD procedure (1000units/500ml field NS) 9:16:15 0.9% NaCl I.V. 100 Pawan Reinoso Per physician ml/hr Jeffrey Pandey RN 9:23:14 Versed I.V. 1 mg Pawan Reinoso for sedation Jeffrey Pandey RN 9:23:20 Fentanyl I.V. 50 mcg Pawan Reinoso for sedation Jeffrey Pandey RN 9:29:27 Radial Cocktail I.A. 1 Pawan Villalta for (Verapomil syringe Jeffrey Murphy MD vasodilation 2mg/Nitro 400mcg/Heparin 1500units) 9:29:50 Versed I.V. 1 mg Pawan Villalta for sedation Jeffrey Murphy MD 9:29:53 Fentanyl I.V. 50 mcg Pawan Villalta for sedation Jeffrey Murphy MD 9:30:52 Heparin Bolus I.V. 4000 Pawan Reinoso for verif ied units Jeffrey Pandey RN anticoagulation with dr murphy Procedure Log Time Note 8:02:43 Diagnostic Cath Status : Elective 8:03:06 Time tracking: Regular hours (M-F 7:00 - 5:00) 8:03:11 Plan of Care:Hemodynamics will remain stable., Cardiac rhythm will remain stable., Comfort level will be maintained., Respiratory function will remain adequate., Patient/ family verbilizes understanding of procedure., Procedure tolerated without complication., Recovers from procedure without complications.. 8:15:05 Mary Ellen Starks RT(R) sent for patient. Start room use. 8:49:42 Patient received from Pre/Post Procedure Room to CCL 2 Alert and oriented. Tansferred to table in Supine position. 8:49:43 Warm blankets applied, and lb hugger turned on for patient comfort. 8:49:44 Correct patient and procedure confirmed by team. 8:49:45 Signed procedure consent form obtained from patient. 8:49:46 ECG and BP/O2 sat monitors applied to patient. 8:54:54 Vital chart was started 8:54:56 Full Disclosure recording started 8:55:00 H&P Date Dictated: 12/15/2017 Within 30 days and on chart., H&P Addendum completed by physician on day of procedure. (MUST COMPLETE FOR ALL OUTPATIENTS). 8:55:02 Pre-procedure instructions explained to patient. 8:55:02 Pre-op teaching completed and patient verbalized understanding. 8:55:04 Family in patients room. 8:55:07 Patient NPO since Midnight. 8:55:09 Is the patient allergic to Iodine/contrast media? No. 8:55:10 Was the patient premedicated? No 8:55:11 Is patient on blood thinner?Yes 8:55:13 ACC The patient was administered the following blood thiners within the last 24 hours: ACCPlavix 8:55:15 Patient diabetic? No. 8:55:18 Previous problem with sedation/anesthesia? No ? 8:55:20 Snore? Yes 8:55:21 Sleep apnea? Yes 8:55:22 Deviated septum? No 8:55:22 Opens mouth fully? Yes 8:55:23 Sticks out tongue? Yes 8:55:30 Airway obstruction? Yes emphysema 8:55:35 Dentures? Yes in tight 8:55:38 Pre procedure: right dorsailis pedis pulse 2+ Normal; easily identifiable; not easily obliterated 8:55:41 Modified Branden's test Ulnar < 7 seconds 8:55:44 Patient pain scale 0/10 ?. 8:55:49 IV patent on arrival in left forearm with 0.9% NaCl at KVO. 8:55:51 Lab results completed and on chart. 8:55:56 Right Radial & Right Groin area was prepped with chlora-prep and draped in sterile fashion 8:55:57 Alarms reviewed by R. N. 8:55:58 Sharps counted by scrub and verified by R.N. 8:59:05 Baseline sample Acquired. 8:59:17 Rhythm: sinus rhythm 9:01:20 Tegaderm 4 x 4 (1626W) opened to sterile field. 9:01:23 ACIST Manifold (96052) opened to sterile field. 9:01:23 ACIST Hand Control (58534) opened to sterile field. 9:01:25 ACIST Syringe (88649) opened to sterile field. 9:01:25 Medline Cath Pack ([id number]) opened to sterile field. 9:01:26 Bag Decanter (2001S) opened to sterile field. 9:01:27 DIAGNOSTIC WIRE .035 260cm J wire (717246) opened to sterile field. 9:01:32 MBrace Wrist Support ([id number]) opened to sterile field. 9:01:44 Use device set TAU PCI 9:01:48 INFLATOR Merit BasixCompak (PT4888) opened to sterile field. 9:01:55 CHOICE PT Extra Support 182cm wire ([id number]) opened to sterile field. 9:01:56 SHEATH Prelude 6Fr 0.035 (FYL-4X-91-035) opened to sterile field. 9:04:51 Oxygen 2 l/min NC was administered by Arleth Pandey RN; used for procedure; 9:14:59 Zero performed for pressure channel P1 9:15:58 Lidocaine 1% 20ml vial added to field was administered by Pawan Murphy MD; for local anesthetic; 9:16:06 Heparin Flush Bag (1000units/500ml NS) 2 bags added to field was administered by Pawan Murphy MD; used for procedure; 9:16:15 0.9% NaCl 100 ml/hr I.V. was administered by Arleth Pandey RN; Per physician; 9:21:31 --------ALL STOP TIME OUT------ 9:21:31 Final Timeout: patient, procedure, and site verified with staff and physician. All members of the team are in agreement. 9:21:41 Right Radial & Right Groin site verified by team. 9:21:45 Physical assessment completed. ASA score P 2 - A patient with mild systemic disease as per Pawan Murphy MD. 9:21:48 Sedation plan: IV Moderate Sedation Medication:Versed, Fentanyl 9:23:14 Versed 1 mg I.V. was administered by Arleth Pandey RN; for sedation; 9:23:20 Fentanyl 50 mcg I.V. was administered by Arleth Pandey RN; for sedation; 9:28:37 Procedure started. 9:28:45 Local anesthetic to right radial artery with Lidocaine 2% by Pawan Murphy MD.INITIAL ACCESS ONLY 9:28:54 GUIDE 6FR EBU 3.5 catheter ([id number]) opened to sterile field. 9:29:06 A 6 Fr Short sheath was inserted into the Right Radial artery 9:29:27 Radial Cocktail (Verapomil 2mg/Nitro 400mcg/Heparin 1500units) 1 syringe I.A. was administered by Pawan Murphy MD; for vasodilation; 9:29:50 Versed 1 mg I.V. was administered by Pawan Murphy MD; for sedation; 9:29:53 Fentanyl 50 mcg I.V. was administered by Pawan Murphy MD; for sedation; 9:30:00 6 Fr EBU 3.5 guide catheter was inserted over the wire 9:30:52 Heparin Bolus 4000 units I.V. was administered by Arleth Pandey RN; for anticoagulation; verified with dr murphy 9:33:36 Choice PT XS wire advanced. 9:33:42 Wire advanced across lesion. 9:33:58 Place stent Inflation Number: 1 A RODRIGO RX 2.5 x 08 stent ([id number]) was prepped and advanced across the Dist LAD. The stent was deployed at 17 HUMBERTO for 0:10 (min:sec). 9:34:20 Stent catheter was removed intact over wire. 9:35:18 Place stent Inflation Number: 1 A RODRIGO RX 3.5 x 26 stent ([id number]) was prepped and advanced across the Mid LAD. The stent was deployed at 13 HUMBERTO for 0:10 (min:sec). 9:36:02 TR BAND Standard ([id number]) opened to sterile field. 9:36:34 Stent catheter was removed intact over wire. 9:36:35 Wire removed. 9:36:35 Guide catheter removed. 9:36:47 Sheath removed intact; hemostasis achieved with Mechanical Compression to the Right Radial artery. 9:36:49 Procedure ended.(Physican Out) 9:39:06 Fluoroscopy time 01.80 minutes. 9:39:10 Fluoroscopy dose: 242 mGy 9:39:10 Flurop Dose total: 242 9:39:13 Contrast amount:Isovue 300 56ml. 9:39:14 Sharps counted by scrub and verified by R.N. 9:39:17 TR band inflated with 10cc of air. 9:39:18 Insertion/operative site no bleeding no hematoma. 9:39:19 Post Procedure Pulses reassessed and unchanged 9:39:22 Post-procedure physical assessment completed. ASA score P 2 - A patient with mild systemic disease as per Pawan Murphy MD. 9:39:24 Post procedure rhythm: unchanged. 9:39:27 Estimated blood loss: 10 ml 9:39:29 Post procedure instruction explained to patient.Patient verbalizes understanding. 9:39:29 Patient needs reinforcement of post procedure teaching. 9:40:14 Procedure type changed to Cath procedure, PCI procedure, Coronary Stent, Coronary Stent Initial 9:40:18 Procedure and supply charges have been captured, reviewed, submitted and are correct. 9:40:21 Procedure Complication : No complications 9:40:39 Vital chart was stopped 9:40:39 See physician's report for complete and final results. 9:40:41 Report given to Pre/Post Procedure Room. 9:40:44 Patient transfered to Pre/Post Procedure Room with Stretcher. 9:40:46 Procedure ended. 9:40:46 Full Disclosure recording stopped 9:40:49 End room use (Document Last) Intervention Summary Intervention Notes Time ActionType Lesion and Equipment Used Action# Pressure Duration Attributes 9:33:58 Place stent Dist LAD RODRIGO RX 2.5 x 1 17 00:10 08 stent ([id number]) 9:35:18 Place stent Mid LAD RODRIGO RX 3.5 x 1 13 00:10 26 stent ([id number]) Device Usage Item Name Manufacture Quantity Catalog Number Hospital Part Current Minimal Lot# / Charge Number Stock Stock Serial# Code Tegaderm 4 x 4 3M 1 1626W 357213 008946 129708 5 (1626W) ACIST Manifold Acist 1 58730 087872 988201 598741 5 (90092) Medical Systems Inc ACIST Hand Acist 1 81738 695078 924550 158078 5 Control (64099) [employer] Inc ACIST Syringe Acist 1 73291 234688 613529 565089 20 (28794) Medical Systems Inc Medline Cath Cardinal 1 [id number] 453551 40092 223697 5 Pack Health ([id number]) Bag Decanter Microtek 1 2001S 512521 07878 385833 5 (2001S) Medical Inc. DIAGNOSTIC WIRE St Johann 1 633148 078873 489989 138506 30 .035 260cm J wire (685423) MBrace Wrist Advanced 1 140-0250-00 890116 32348 090153 5 Support Vascular (709804504) Dynamics INFLATOR Merit Merit 1 DD2438 120094 795280 627230 15 [facility] Center[facility]og Spree Medical (ZX7298) CHOICE PT Extra [place] 1 [id number] 254892 467534 995224 5 Support 182cm Scientific wire ([id number]) SHEATH Prelude Merit 1 HBY-4Y-05-35 602756 4807983 326456 5 6Fr 0.035 Medical ([id number]-8S-57-035) GUIDE 6FR EBU Medtronic 1 [id number] 607126 50609 189529 3 3.5 catheter ([id number]) RODRIGO RX 2.5 x Medtronic 1 [id number] 368010 3232063 562426 5 [id number] 08 stent ([id number]) RODRIGO RX 3.5 x Medtronic 1 [id number] 078271 4439868 558360 5 [id number] 26 stent ([id number]) TR BAND Terumo 1 [id number] 703467 516659 911905 40 Standard ([id number]) Signature Audit [place] Stage Time Signature Unsigned Intra-Procedure 12/15/2017 Steve Bennett 9:43:34 AM RT(R) Signatures Monitor : Steve Bennett RT Signature : Date : Time : [place] [id number] [facility] [place] [address]
--- NOTE | ~2017-12-15 | OP ---
PATIENT NAME: ESTHER ROWE MEDICAL RECORD: [id number] :52 LOCATION:D.CAT ADMISSION DATE: SURGEON: LETICIA ALAN MD DATE OF OPERATION: 12/15/2017 PROCEDURES: 1. PTCA stent LAD. 2. Selective coronary angiography. INDICATION: Angina and coronary artery disease. PROCEDURE PERFORMED: After informed consent was obtained and after detailed explanation of risks, benefits as well as alternative therapies, the patient elected to proceed with angiogram and angioplasty. The right radial area was prepped and draped in normal sterile fashion. Right radial artery was cannulated via modified Seldinger technique with placement of 6-Yoruba sheath. All catheters exchanged through this sheath. FINDINGS: Left anterior descending had 2 areas of greater than 80% stenosis. This was addressed with a 3.5 x 26 and 2.5 x 8 [place] stents. Result was 0% residual stenosis. OVERALL IMPRESSION: Successful PTCA stent of the LAD going from 80+ percent initial stenosis to 0% residual. TRANSINT:[id number] Voice Confirmation ID: [id number] DOCUMENT ID: [id number] LETICIA ALAN MD at 1705 CC: [id number] DICTATION DATE: 12/15/17 0939 CONSTRUCTION REP: 12/15/17 1309 DEP CLI 12/15/[address] [address]
[~2017-12-15 07:27] MED LIST: ALBUTEROL2.5 MG/3 M INH; BAYER CHEWABLE81 MG PO; BENADRYL25 MG PO; CO Q-10200 MG PO; EUCERIN CREAM120 GM TOPICAL; FISH OIL 1,0001 CA1 PO; FLUTICASONE PRO16 GM NASAL; MUCINEX DM ER1 EAC1 PO; PEPCID20 MG PO; PLAVIX75 MG PO; PROTONIX40 MG PO; SINGULAIR10 MG PO; TESSALON PERLE100 MG PO
[2017-12-15 08:11] VITALS: BP 103/62; Ht 175.3 cm; Wt 48.6 kg
[2017-12-15 08:27] LABS: BASOPHILS 0.3 % (0-2); EOSINOPHILS 0.4 % (0-7); HEMATOCRIT 31.7 % (42.0-54.0); HEMOGLOBIN 10.8 g/dL (13.5-17.5); IMMATURE GRANULOCYTES 0.4 % (0-5); LYMPHOCYTES 4.9 % (15-50); MCH 30.2 pg (26.0-34.0); MCHC 34.1 g/dL (31.0-37.0); MCV 88.5 fL (80.0-100.0); MEAN PLATELET VOLUME 8.5 fL (7.4-10.4); MONOCYTES 11.7 % (2-11); NEUTROPHILS 82.3 % (40-80); PLATELET COUNT 330 10x3/uL (130-400); RBC 3.58 10x6/uL (4.20-6.10); RDW 13.2 % (11.5-14.5); WBC 7.2 10x3/uL (4.8-10.8)
[2017-12-15 08:41] LABS: CALC OSMOLALITY 256 mosm/kg (275-300); CALCIUM 9.2 mg/dL (8.5-10.1); CARBON DIOXIDE 26.7 mmol/L (21.0-32.0); CHLORIDE - SERUM 95 mmol/L (98-107); GLUCOSE 101 mg/dL (74-106); POTASSIUM - SERUM 4.9 mmol/L (3.5-5.1); SODIUM 129 mmol/L (136-145); UREA NITROGEN 7 mg/dL (7-18); eGFR NON AFRICAN AMERICAN 79 mL/min (90-120)
== END | disposition home or self-care (01) ==
LOC: D.CATH 07:27
PROVIDERS: Internal Medicine Interventional Cardiology
DX: I25.119 Atherosclerotic heart disease of native coronary artery with unspecified angina pectoris (principal); Z01.812 Encounter for preprocedural laboratory examination

== ENCOUNTER 2018-01-05 12:36 | Inpatient (IN) | payer MEDICARE, OTHER ==
[~2018-01-05] VITALS: Ht 175.3 cm; Wt 53.3 kg
[~2018-01-05 12:36] MED LIST changes: -ALBUTEROL2.5 MG/3 M INH; -BENADRYL25 MG PO; -EUCERIN CREAM120 GM TOPICAL; -FLUTICASONE PRO16 GM NASAL; -MUCINEX DM ER1 EAC1 PO; -PEPCID20 MG PO; -PROTONIX40 MG PO; -SINGULAIR10 MG PO; -TESSALON PERLE100 MG PO
[2018-01-05 14:17] LABS: BASOPHILS 0.2 % (0-2); EOSINOPHILS 0 % (0-7); HEMATOCRIT 29.6 % (42.0-54.0); HEMOGLOBIN 10.1 g/dL (13.5-17.5); IMMATURE GRANULOCYTES 0.5 % (0-5); LYMPHOCYTES 4.1 % (15-50); MCH 29.5 pg (26.0-34.0); MCHC 34.1 g/dL (31.0-37.0); MCV 86.5 fL (80.0-100.0); MEAN PLATELET VOLUME 8.3 fL (7.4-10.4); MONOCYTES 9.1 % (2-11); NEUTROPHILS 86.1 % (40-80); PLATELET COUNT 399 10x3/uL (130-400); RBC 3.42 10x6/uL (4.20-6.10); RDW 13.5 % (11.5-14.5)
[2018-01-05 14:41] LABS: ALBUMIN 2.7 g/dL (3.4-5.0); ALKALINE PHOSPHATASE 70 U/L (46-116); ALT (SGPT) 21 U/L (10-68); BILIRUBIN - TOTAL 0.32 mg/dL (0.2-1.3); CALC OSMOLALITY 250 mosm/kg (275-300); CALCIUM 9.1 mg/dL (8.5-10.1); CARBON DIOXIDE 26.3 mmol/L (21.0-32.0); CHLORIDE - SERUM 91 mmol/L (98-107); CREATININE - SERUM 0.9 mg/dL (0.6-1.3); GLUCOSE 101 mg/dL (74-106); POTASSIUM - SERUM 4.6 mmol/L (3.5-5.1); PROTEIN - SERUM 8.1 g/dL (6.4-8.2); SODIUM 124 mmol/L (136-145); UREA NITROGEN 16 mg/dL (7-18); eGFR NON AFRICAN AMERICAN 90 mL/min (90-120)
[2018-01-05 15:01] LABS: CKMB 0.6 U/L (0.0-3.6); CREATINE KINASE 36 UL (21-232); PRO BNP 384 pg/mL (0-125)
[2018-01-05 18:21] VITALS: BP 128/76
[2018-01-05 18:36] LABS: APPEARANCE CLEAR (CLEAR); BILIRUBIN NEGATIVE (NEGATIVE); COLOR YELLOW (YELLOW); GLUCOSE NEGATIVE (NEGATIVE); KETONE NEGATIVE (NEGATIVE); NITRITE NEGATIVE (NEGATIVE); PROTEIN NEGATIVE (NEGATIVE); UROBILINOGEN NORMAL (NORMAL)
[2018-01-05 19:37] VITALS: BP 123/78
[2018-01-05 22:15] VITALS: BP 98/63
[2018-01-05 23:18] VITALS: BP 97/61; BMI 17.4
[2018-01-06 00:10] VITALS: BP 97/61
[2018-01-06 04:03] VITALS: BP 96/64
[2018-01-06 08:33] VITALS: BP 113/64
[2018-01-06 10:58] LABS: HEMATOCRIT 26.3 % (42.0-54.0); HEMOGLOBIN 8.8 g/dL (13.5-17.5); MCH 29.3 pg (26.0-34.0); MCHC 33.5 g/dL (31.0-37.0); MCV 87.7 fL (80.0-100.0); MEAN PLATELET VOLUME 8.3 fL (7.4-10.4); PLATELET COUNT 356 10x3/uL (130-400); RDW 13.5 % (11.5-14.5); WBC 5.5 10x3/uL (4.8-10.8)
[2018-01-06 11:11] LABS: % SATURATION 12 % (15-55); IRON 19 ug/dl (35-150); TOTAL IRON BIND CAPACITY 153 ug/dl (260-445); UNSAT IRON BIND CAPACITY 134 ug/dl (150-375)
[2018-01-06 11:26] LABS: CALC OSMOLALITY 257 mosm/kg (275-300); CALCIUM 8.5 mg/dL (8.5-10.1); CARBON DIOXIDE 28.4 mmol/L (21.0-32.0); CHLORIDE - SERUM 96 mmol/L (98-107); CREATININE - SERUM 0.9 mg/dL (0.6-1.3); FERRITIN 747 ng/mL (3-244); GLUCOSE 104 mg/dL (74-106); POTASSIUM - SERUM 4.3 mmol/L (3.5-5.1); SODIUM 129 mmol/L (136-145); eGFR NON AFRICAN AMERICAN 90 mL/min (90-120)
[2018-01-06 11:27] LABS: UREA NITROGEN 11 mg/dL (7-18)
[2018-01-06 11:36] LABS: LYMPHOCYTES 4 % (15-50); MONOCYTES 7 % (2-11); NEUTROPHILS 87 % (40-80)
[2018-01-06 11:37] LABS: PLATELET ESTIMATE INCREASED; PLATELET MORPHOLOGY PLT CLUMPS PRESENT
[2018-01-06 12:01] VITALS: BP 100/63
[2018-01-06 12:18] VITALS: Ht 175.3 cm; Wt 53.3 kg
[2018-01-06 20:00] VITALS: BP 130/76; BP 89/48
[2018-01-07] VITALS: BP 95/51
[2018-01-07 04:00] VITALS: BP 114/50
[2018-01-07 05:53] LABS: BASOPHILS 0.2 % (0-2); EOSINOPHILS 0.3 % (0-7); HEMATOCRIT 25.9 % (42.0-54.0); HEMOGLOBIN 8.7 g/dL (13.5-17.5); IMMATURE GRANULOCYTES 0.3 % (0-5); LYMPHOCYTES 6.4 % (15-50); MCH 29.2 pg (26.0-34.0); MCHC 33.6 g/dL (31.0-37.0); MCV 86.9 fL (80.0-100.0); MEAN PLATELET VOLUME 8.5 fL (7.4-10.4); MONOCYTES 9.9 % (2-11); NEUTROPHILS 82.9 % (40-80); PLATELET COUNT 404 10x3/uL (130-400); RBC 2.98 10x6/uL (4.20-6.10); RDW 13.5 % (11.5-14.5); WBC 5.8 10x3/uL (4.8-10.8)
[2018-01-07 06:28] LABS: ALKALINE PHOSPHATASE 54 U/L (46-116); ALT (SGPT) 18 U/L (10-68); BILIRUBIN - TOTAL 0.18 mg/dL (0.2-1.3); CALCIUM 8.5 mg/dL (8.5-10.1); CARBON DIOXIDE 24.4 mmol/L (21.0-32.0); CHLORIDE - SERUM 97 mmol/L (98-107); GLUCOSE 99 mg/dL (74-106); PHOSPHOROUS 3.2 mg/dL (2.5-4.9); POTASSIUM - SERUM 4.3 mmol/L (3.5-5.1); PROTEIN - SERUM 6.3 g/dL (6.4-8.2); SODIUM 130 mmol/L (136-145); eGFR NON AFRICAN AMERICAN 79 mL/min (90-120)
[2018-01-07 06:44] LABS: CALC OSMOLALITY 258 mosm/kg (275-300); UREA NITROGEN 8 mg/dL (7-18)
[2018-01-07 09:15] VITALS: BP 88/56
[2018-01-07 11:47] VITALS: BP 99/57
[2018-01-07 16:02] VITALS: BP 107/71
[2018-01-07 20:00] VITALS: BP 112/60
[2018-01-08] VITALS: BP 101/56
[2018-01-08 04:00] VITALS: BP 117/67
[2018-01-08 06:30] LABS: BASOPHILS 0.4 % (0-2); EOSINOPHILS 0.4 % (0-7); HEMATOCRIT 24.3 % (42.0-54.0); HEMOGLOBIN 7.9 g/dL (13.5-17.5); IMMATURE GRANULOCYTES 0.2 % (0-5); LYMPHOCYTES 8.9 % (15-50); MCH 28.7 pg (26.0-34.0); MCHC 32.5 g/dL (31.0-37.0); MCV 88.4 fL (80.0-100.0); MEAN PLATELET VOLUME 8.1 fL (7.4-10.4); MONOCYTES 9.9 % (2-11); NEUTROPHILS 80.2 % (40-80); PLATELET COUNT 339 10x3/uL (130-400); RBC 2.75 10x6/uL (4.20-6.10); RDW 13.9 % (11.5-14.5); WBC 4.8 10x3/uL (4.8-10.8)
[2018-01-08 06:54] LABS: CALC OSMOLALITY 259 mosm/kg (275-300); CALCIUM 8.7 mg/dL (8.5-10.1); CARBON DIOXIDE 26.2 mmol/L (21.0-32.0); CHLORIDE - SERUM 98 mmol/L (98-107); CREATININE - SERUM 0.9 mg/dL (0.6-1.3); GLUCOSE 108 mg/dL (74-106); POTASSIUM - SERUM 4.4 mmol/L (3.5-5.1); SODIUM 130 mmol/L (136-145); UREA NITROGEN 8 mg/dL (7-18); eGFR NON AFRICAN AMERICAN 90 mL/min (90-120)
[2018-01-08 07:27] LABS: IMMUNOGLOBULIN A 199 mg/dL (61-437); IMMUNOGLOBULIN G 1111 mg/dL (700-1600)
[2018-01-08 08:58] VITALS: BP 106/54
[2018-01-08 09:15] LABS: FOLATE (FOLIC ACID) - SERUM 12.9 ng/mL (>3.0)
[2018-01-08 15:21] LABS: AFB SPECIMEN PROCESSING Concentration (())
[2018-01-08 16:06] VITALS: BP 119/86
[2018-01-08 20:00] VITALS: BP 125/67
[2018-01-09] VITALS: BP 106/71
[2018-01-09 04:00] VITALS: BP 148/63
[2018-01-09 07:06] LABS: BASOPHILS 0.4 % (0-2); EOSINOPHILS 0.7 % (0-7); HEMATOCRIT 24.8 % (42.0-54.0); HEMOGLOBIN 8.2 g/dL (13.5-17.5); IMMATURE GRANULOCYTES 0.4 % (0-5); LYMPHOCYTES 6.3 % (15-50); MCH 29.1 pg (26.0-34.0); MCHC 33.1 g/dL (31.0-37.0); MCV 87.9 fL (80.0-100.0); MEAN PLATELET VOLUME 8.1 fL (7.4-10.4); MONOCYTES 14.1 % (2-11); NEUTROPHILS 78.1 % (40-80); PLATELET COUNT 343 10x3/uL (130-400); RBC 2.82 10x6/uL (4.20-6.10); RDW 13.9 % (11.5-14.5); WBC 4.6 10x3/uL (4.8-10.8)
[2018-01-09 07:16] LABS: CALC OSMOLALITY 263 mosm/kg (275-300); CALCIUM 8.8 mg/dL (8.5-10.1); CARBON DIOXIDE 27.5 mmol/L (21.0-32.0); CHLORIDE - SERUM 99 mmol/L (98-107); CREATININE - SERUM 0.9 mg/dL (0.6-1.3); GLUCOSE 97 mg/dL (74-106); POTASSIUM - SERUM 4.4 mmol/L (3.5-5.1); SODIUM 132 mmol/L (136-145); UREA NITROGEN 9 mg/dL (7-18); eGFR NON AFRICAN AMERICAN 90 mL/min (90-120)
[2018-01-09 10:22] VITALS: BP 128/70
[2018-01-09 16:14] VITALS: BP 114/65
[2018-01-09 22:54] VITALS: BP 116/69
[2018-01-10 01:26] VITALS: BP 116/70
[2018-01-10 05:39] LABS: IMMUNOGLOBULIN E 210 IU/mL (0-100)
[2018-01-10 08:38] VITALS: BP 98/62
[2018-01-10 09:50] LABS: BASOPHILS 0.4 % (0-2); EOSINOPHILS 0.2 % (0-7); HEMATOCRIT 27.1 % (42.0-54.0); HEMOGLOBIN 8.9 g/dL (13.5-17.5); IMMATURE GRANULOCYTES 0.2 % (0-5); LYMPHOCYTES 4.8 % (15-50); MCHC 32.8 g/dL (31.0-37.0); MCV 88.3 fL (80.0-100.0); MEAN PLATELET VOLUME 8.4 fL (7.4-10.4); MONOCYTES 6.1 % (2-11); NEUTROPHILS 88.3 % (40-80); RBC 3.07 10x6/uL (4.20-6.10); RDW 14.1 % (11.5-14.5); WBC 5.3 10x3/uL (4.8-10.8)
[2018-01-10 09:51] LABS: PLATELET COUNT 424 10x3/uL (130-400)
[2018-01-10 10:14] LABS: CALC OSMOLALITY 260 mosm/kg (275-300); CALCIUM 8.4 mg/dL (8.5-10.1); CARBON DIOXIDE 27.1 mmol/L (21.0-32.0); CHLORIDE - SERUM 97 mmol/L (98-107); CREATININE - SERUM 0.8 mg/dL (0.6-1.3); GLUCOSE 131 mg/dL (74-106); POTASSIUM - SERUM 4.5 mmol/L (3.5-5.1); SODIUM 130 mmol/L (136-145); eGFR NON AFRICAN AMERICAN > 90 mL/min (90-120)
[2018-01-10 10:15] LABS: UREA NITROGEN 6 mg/dL (7-18)
[2018-01-10 12:09] VITALS: BP 104/60
[2018-01-10 15:23] VITALS: BP 108/60
[2018-01-10 21:48] VITALS: BP 118/56
[2018-01-11 00:56] VITALS: BP 116/59
[2018-01-11 04:43] LABS: BASOPHILS 0.2 % (0-2); HEMATOCRIT 24.2 % (42.0-54.0); IMMATURE GRANULOCYTES 0.4 % (0-5); LYMPHOCYTES 4.6 % (15-50); MCH 28.7 pg (26.0-34.0); MCHC 33.1 g/dL (31.0-37.0); MCV 86.7 fL (80.0-100.0); MEAN PLATELET VOLUME 8.5 fL (7.4-10.4); MONOCYTES 12.6 % (2-11); NEUTROPHILS 81.2 % (40-80); PLATELET COUNT 382 10x3/uL (130-400); RBC 2.79 10x6/uL (4.20-6.10); WBC 5.3 10x3/uL (4.8-10.8)
[2018-01-11 04:48] VITALS: BP 121/77
[2018-01-11 04:51] LABS: CALC OSMOLALITY 256 mosm/kg (275-300); CALCIUM 8.1 mg/dL (8.5-10.1); CARBON DIOXIDE 25.5 mmol/L (21.0-32.0); CHLORIDE - SERUM 97 mmol/L (98-107); CREATININE - SERUM 0.8 mg/dL (0.6-1.3); GLUCOSE 94 mg/dL (74-106); POTASSIUM - SERUM 4.1 mmol/L (3.5-5.1); SODIUM 129 mmol/L (136-145); UREA NITROGEN 6 mg/dL (7-18); eGFR NON AFRICAN AMERICAN > 90 mL/min (90-120)
[2018-01-11 09:28] VITALS: BP 124/72
[2018-01-11 13:25] VITALS: BP 103/61
[2018-01-11 16:43] VITALS: BP 110/68
[2018-01-11 20:00] VITALS: BP 117/73
[2018-01-12] VITALS (11 sets, daily range): BP systolic 98–136; BP diastolic 60–76
[2018-01-12 07:00] LABS: BASOPHILS 0.5 % (0-2); EOSINOPHILS 1.4 % (0-7); HEMATOCRIT 26.4 % (42.0-54.0); HEMOGLOBIN 8.7 g/dL (13.5-17.5); IMMATURE GRANULOCYTES 0.3 % (0-5); LYMPHOCYTES 5.8 % (15-50); MCH 28.7 pg (26.0-34.0); MCV 87.1 fL (80.0-100.0); MEAN PLATELET VOLUME 8.3 fL (7.4-10.4); MONOCYTES 12.2 % (2-11); NEUTROPHILS 79.8 % (40-80); PLATELET COUNT 408 10x3/uL (130-400); RBC 3.03 10x6/uL (4.20-6.10); RDW 14.3 % (11.5-14.5); WBC 6.6 10x3/uL (4.8-10.8)
[2018-01-12 07:10] LABS: INR 1.04 (0.85-1.17); PROTIME 13.2 SECONDS (11.6-15.0)
[2018-01-12 07:13] LABS: ALBUMIN 2.2 g/dL (3.4-5.0); ALKALINE PHOSPHATASE 62 U/L (46-116); ALT (SGPT) 56 U/L (10-68); BILIRUBIN - TOTAL 0.26 mg/dL (0.2-1.3); CALC OSMOLALITY 254 mosm/kg (275-300); CALCIUM 8.5 mg/dL (8.5-10.1); CARBON DIOXIDE 26.8 mmol/L (21.0-32.0); CHLORIDE - SERUM 96 mmol/L (98-107); CREATININE - SERUM 0.9 mg/dL (0.6-1.3); GLUCOSE 96 mg/dL (74-106); POTASSIUM - SERUM 4.3 mmol/L (3.5-5.1); PROTEIN - SERUM 6.8 g/dL (6.4-8.2); SODIUM 128 mmol/L (136-145); eGFR NON AFRICAN AMERICAN 90 mL/min (90-120)
[2018-01-12 07:14] LABS: UREA NITROGEN 8 mg/dL (7-18)
[2018-01-12 07:52] LABS: APTT 42.1 SECONDS (22.8-39.4)
[2018-01-12 17:13] LABS: AFB SPECIMEN PROCESSING Concentration (())
[2018-01-13 03:45] VITALS: BP 105/62
[2018-01-13 06:39] LABS: ALBUMIN 2.1 g/dL (3.4-5.0); ALKALINE PHOSPHATASE 58 U/L (46-116); ALT (SGPT) 66 U/L (10-68); BILIRUBIN - TOTAL 0.34 mg/dL (0.2-1.3); CALC OSMOLALITY 253 mosm/kg (275-300); CALCIUM 8.3 mg/dL (8.5-10.1); CARBON DIOXIDE 27.1 mmol/L (21.0-32.0); CHLORIDE - SERUM 98 mmol/L (98-107); CREATININE - SERUM 0.7 mg/dL (0.6-1.3); GLUCOSE 89 mg/dL (74-106); POTASSIUM - SERUM 3.9 mmol/L (3.5-5.1); PROTEIN - SERUM 6.5 g/dL (6.4-8.2); SODIUM 128 mmol/L (136-145); UREA NITROGEN 7 mg/dL (7-18); eGFR NON AFRICAN AMERICAN > 90 mL/min (90-120)
[2018-01-13 07:15] LABS: BASOPHILS 0.3 % (0-2); HEMATOCRIT 25.7 % (42.0-54.0); HEMOGLOBIN 8.4 g/dL (13.5-17.5); IMMATURE GRANULOCYTES 0.2 % (0-5); LYMPHOCYTES 4.5 % (15-50); MCH 28.9 pg (26.0-34.0); MCHC 32.7 g/dL (31.0-37.0); MCV 88.3 fL (80.0-100.0); MEAN PLATELET VOLUME 8.5 fL (7.4-10.4); MONOCYTES 11.6 % (2-11); NEUTROPHILS 82.4 % (40-80); PLATELET COUNT 420 10x3/uL (130-400); RBC 2.91 10x6/uL (4.20-6.10); RDW 14.8 % (11.5-14.5); WBC 6.3 10x3/uL (4.8-10.8)
[2018-01-13 08:28] VITALS: BP 118/62
[2018-01-13 12:08] VITALS: BP 104/62
[2018-01-13 13:19] LABS: FUNGUS STAIN Final report (())
[2018-01-13 13:19] LABS: FUNGUS STAIN Final report (())
[2018-01-13 16:09] VITALS: BP 106/61
[2018-01-13 19:12] LABS: AFB SPECIMEN PROCESSING Concentration (())
[2018-01-13 19:12] LABS: AFB SPECIMEN PROCESSING Concentration (())
[2018-01-13 20:00] VITALS: BP 116/71
[2018-01-14] VITALS: BP 112/60
[2018-01-14 04:00] VITALS: BP 116/59
[2018-01-14 05:36] LABS: BASOPHILS 0 % (0-2); EOSINOPHILS 1.2 % (0-7); HEMATOCRIT 26.8 % (42.0-54.0); HEMOGLOBIN 8.9 g/dL (13.5-17.5); IMMATURE GRANULOCYTES 0.4 % (0-5); LYMPHOCYTES 5.1 % (15-50); MCH 29.1 pg (26.0-34.0); MCHC 33.2 g/dL (31.0-37.0); MCV 87.6 fL (80.0-100.0); MONOCYTES 6.7 % (2-11); NEUTROPHILS 86.6 % (40-80); PLATELET COUNT 358 10x3/uL (130-400); RBC 3.06 10x6/uL (4.20-6.10); RDW 14.8 % (11.5-14.5); WBC 5.7 10x3/uL (4.8-10.8)
[2018-01-14 06:01] LABS: ALKALINE PHOSPHATASE 65 U/L (46-116); ALT (SGPT) 78 U/L (10-68); BILIRUBIN - TOTAL 0.17 mg/dL (0.2-1.3); CALC OSMOLALITY 254 mosm/kg (275-300); CALCIUM 8.1 mg/dL (8.5-10.1); CARBON DIOXIDE 24.8 mmol/L (21.0-32.0); CHLORIDE - SERUM 98 mmol/L (98-107); CREATININE - SERUM 0.8 mg/dL (0.6-1.3); GLUCOSE 104 mg/dL (74-106); POTASSIUM - SERUM 4.1 mmol/L (3.5-5.1); PROTEIN - SERUM 6.3 g/dL (6.4-8.2); SODIUM 128 mmol/L (136-145); UREA NITROGEN 7 mg/dL (7-18); eGFR NON AFRICAN AMERICAN > 90 mL/min (90-120)
[2018-01-14 09:10] VITALS: BP 98/59
[2018-01-14 12:18] LABS: LEGIONELLA ANTIGEN - URINE Negative (Negative)
[2018-01-14 12:22] VITALS: BP 113/72
[2018-01-14 16:13] VITALS: BP 111/52
[2018-01-14 20:29] VITALS: BP 112/65
[2018-01-15 04:06] VITALS: BP 94/60
[2018-01-15 05:51] LABS: BASOPHILS 0.2 % (0-2); EOSINOPHILS 2.5 % (0-7); HEMATOCRIT 24.4 % (42.0-54.0); IMMATURE GRANULOCYTES 0.5 % (0-5); LYMPHOCYTES 8.3 % (15-50); MCH 28.8 pg (26.0-34.0); MCHC 32.8 g/dL (31.0-37.0); MCV 87.8 fL (80.0-100.0); MEAN PLATELET VOLUME 8.2 fL (7.4-10.4); MONOCYTES 4.8 % (2-11); NEUTROPHILS 83.7 % (40-80); PLATELET COUNT 339 10x3/uL (130-400); RBC 2.78 10x6/uL (4.20-6.10); RDW 14.9 % (11.5-14.5); WBC 4.3 10x3/uL (4.8-10.8)
[2018-01-15 06:42] LABS: ALBUMIN 1.9 g/dL (3.4-5.0); ALKALINE PHOSPHATASE 57 U/L (46-116); BILIRUBIN - TOTAL 0.23 mg/dL (0.2-1.3); CARBON DIOXIDE 23.3 mmol/L (21.0-32.0); CHLORIDE - SERUM 99 mmol/L (98-107); CREATININE - SERUM 0.7 mg/dL (0.6-1.3); GLUCOSE 96 mg/dL (74-106); POTASSIUM - SERUM 3.9 mmol/L (3.5-5.1); PROTEIN - SERUM 5.9 g/dL (6.4-8.2); SODIUM 131 mmol/L (136-145); eGFR NON AFRICAN AMERICAN > 90 mL/min (90-120)
[2018-01-15 06:47] LABS: ALT (SGPT) 56 U/L (10-68); CALC OSMOLALITY 259 mosm/kg (275-300); UREA NITROGEN 5 mg/dL (7-18)
[2018-01-15 09:23] VITALS: BP 111/70
[2018-01-15] MEDS ORDERED: BENADRYL25 MG PO (12:00)
[2018-01-15] MEDS ORDERED: PEPCID20 MG PO (12:01)
[2018-01-15] MEDS ORDERED: EUCERIN CREAM120 GM TOPICAL (12:01)
[2018-01-15] MEDS ORDERED: MUCINEX DM ER1 EAC1 PO (12:01)
[2018-01-15] MEDS ORDERED: PROTONIX40 MG PO (12:01)
[2018-01-15] MEDS ORDERED: TESSALON PERLE100 MG PO (12:01)
[2018-01-15] MEDS ORDERED: FLUTICASONE PRO16 GM NASAL (12:01)
[2018-01-15] MEDS ORDERED: SINGULAIR10 MG PO (12:01)
[2018-01-15] MEDS ORDERED: ALBUTEROL2.5 MG/3 M INH (12:02)
[2018-01-15 12:44] VITALS: BP 135/82
[2018-01-15 15:24] LABS: HISTOPLASMA GAL MANNAN AG SER <0.5 (<0.5 ng/mL)
[2018-01-15 16:16] LABS: FUNGAL - ASP FLAVUS Negative (Neg:<1:1); FUNGAL - ASP NIGER Negative (Neg:<1:1); FUNGAL - ASPER FUMIGATUS Negative (Neg:<1:1)
[2018-01-19 10:14] LABS: ACID FAST CULTURE Positive (()); ACID FAST SMEAR Positive (()); M TUBERCULOSIS Negative (())
[2018-01-26 08:24] LABS: ACID FAST CULTURE Positive (())
[2018-01-26 08:24] LABS: ACID FAST CULTURE Positive (())
[2018-01-26 12:23] LABS: ACID FAST CULTURE Positive (()); ACID FAST SMEAR Positive (()); M TUBERCULOSIS Negative (())
[2018-01-26 12:23] LABS: ACID FAST SMEAR Positive (()); M TUBERCULOSIS Negative (())
[2018-01-26 12:23] LABS: ACID FAST SMEAR Positive (()); M TUBERCULOSIS Negative (())
[2018-02-05 15:24] LABS: AMIKACIN 16.0 ug/mL (())
[2018-02-09 07:30] LABS: FUNGUS CULTURE RESULT 1 Candida albicans (()); FUNGUS MYCOLOGY CULTURE Final report (())
[2018-02-09 07:30] LABS: FUNGUS CULTURE RESULT 1 Candida albicans (()); FUNGUS MYCOLOGY CULTURE Final report (())
== END 2018-01-15 16:15 | disposition home or self-care (01) | DRG 193 ==
LOC: D.ER 12:36 → D.MS 20:58
PROVIDERS: Family Medicine; Internal Medicine Nephrology; Internal Medicine Pulmonary Disease; Student in an Organized Health Care Education/Training Program
PROC: 0B978ZZ Drainage of Left Main Bronchus, Via Natural or Artificial Opening Endoscopic (ICD-10-PCS; principal; 2018-01-12)
PROC: 0B938ZZ Drainage of Right Main Bronchus, Via Natural or Artificial Opening Endoscopic (ICD-10-PCS; 2018-01-12)
DX: J18.9 Pneumonia, unspecified organism (principal); J96.01 Acute respiratory failure with hypoxia; E43 Unspecified severe protein-calorie malnutrition; J44.0 Chronic obstructive pulmonary disease with (acute) lower respiratory infection; J44.1 Chronic obstructive pulmonary disease with (acute) exacerbation; E87.1 Hypo-osmolality and hyponatremia; Z68.1 Body mass index [BMI] 19.9 or less, adult; A31.0 Pulmonary mycobacterial infection; D50.9 Iron deficiency anemia, unspecified; I25.10 Atherosclerotic heart disease of native coronary artery without angina pectoris; Z95.5 Presence of coronary angioplasty implant and graft; K21.9 Gastro-esophageal reflux disease without esophagitis; Z87.891 Personal history of nicotine dependence; L89.152 Pressure ulcer of sacral region, stage 2; K59.00 Constipation, unspecified; Z77.090 Contact with and (suspected) exposure to asbestos; R21 Rash and other nonspecific skin eruption

== ENCOUNTER → 2018-03-23 14:24 | Outpatient (CLI) | payer MEDICARE, OTHER ==
[2018-01-06 12:18] VITALS: BMI 17.4
[~2018-03-23 14:24] MED LIST changes: +ALBUTEROL2.5 MG/3 M INH; +BENADRYL25 MG PO; +EUCERIN CREAM120 GM TOPICAL; +FLUTICASONE PRO16 GM NASAL; +MUCINEX DM ER1 EAC1 PO; +PEPCID20 MG PO; +PROTONIX40 MG PO; +SINGULAIR10 MG PO; +TESSALON PERLE100 MG PO
[2018-03-23 16:00] LABS: BASOPHILS 0.5 % (0-2); EOSINOPHILS 1.2 % (0-7); HEMATOCRIT 35.3 % (42.0-54.0); HEMOGLOBIN 11.6 g/dL (13.5-17.5); IMMATURE GRANULOCYTES 0.2 % (0-5); MCH 30.1 pg (26.0-34.0); MCHC 32.9 g/dL (31.0-37.0); MCV 91.7 fL (80.0-100.0); MEAN PLATELET VOLUME 8.7 fL (7.4-10.4); MONOCYTES 14.2 % (2-11); NEUTROPHILS 70.9 % (40-80); PLATELET COUNT 324 10x3/uL (130-400); RBC 3.85 10x6/uL (4.20-6.10); RDW 16.1 % (11.5-14.5); WBC 4.2 10x3/uL (4.8-10.8)
[2018-03-23 16:24] LABS: ALBUMIN 3.1 g/dL (3.4-5.0); ALKALINE PHOSPHATASE 87 U/L (46-116); ALT (SGPT) 22 U/L (10-68); CALC OSMOLALITY 259 mosm/kg (275-300); CHLORIDE - SERUM 96 mmol/L (98-107); CREATININE - SERUM 0.8 mg/dL (0.6-1.3); GLUCOSE 78 mg/dL (74-106); PROTEIN - SERUM 7.3 g/dL (6.4-8.2); SODIUM 131 mmol/L (136-145); UREA NITROGEN 6 mg/dL (7-18); eGFR NON AFRICAN AMERICAN > 90 mL/min (90-120)
[2018-03-23 16:57] LABS: CARBON DIOXIDE 27.5 mmol/L (21.0-32.0)
== END | disposition home or self-care (01) ==
LOC: D.LABREF 14:24
PROVIDERS: Student in an Organized Health Care Education/Training Program
DX: Z51.81 Encounter for therapeutic drug level monitoring (principal); Z79.2 Long term (current) use of antibiotics

== ENCOUNTER → 2018-04-27 15:38 | Outpatient (CLI) | payer MEDICARE, OTHER ==
[2018-01-06 12:18] VITALS: BMI 17.4
[2018-04-27 16:00] LABS: BASOPHILS 0.7 % (0-2); EOSINOPHILS 1.9 % (0-7); HEMATOCRIT 36.5 % (42.0-54.0); HEMOGLOBIN 12.1 g/dL (13.5-17.5); IMMATURE GRANULOCYTES 0.2 % (0-5); LYMPHOCYTES 16.6 % (15-50); MCH 30.7 pg (26.0-34.0); MCHC 33.2 g/dL (31.0-37.0); MCV 92.6 fL (80.0-100.0); MEAN PLATELET VOLUME 9.3 fL (7.4-10.4); MONOCYTES 13.5 % (2-11); NEUTROPHILS 67.1 % (40-80); PLATELET COUNT 343 10x3/uL (130-400); RBC 3.94 10x6/uL (4.20-6.10); RDW 14.7 % (11.5-14.5); WBC 4.2 10x3/uL (4.8-10.8)
[2018-04-27 16:18] LABS: ALBUMIN 3.2 g/dL (3.4-5.0); ALKALINE PHOSPHATASE 87 U/L (46-116); ALT (SGPT) 22 U/L (10-68); BILIRUBIN - TOTAL 0.19 mg/dL (0.2-1.3); CALC OSMOLALITY 267 mosm/kg (275-300); CALCIUM 9.1 mg/dL (8.5-10.1); CARBON DIOXIDE 27.1 mmol/L (21.0-32.0); CHLORIDE - SERUM 99 mmol/L (98-107); CREATININE - SERUM 0.8 mg/dL (0.6-1.3); GLUCOSE 75 mg/dL (74-106); POTASSIUM - SERUM 4.6 mmol/L (3.5-5.1); PROTEIN - SERUM 7.3 g/dL (6.4-8.2); SODIUM 136 mmol/L (136-145); UREA NITROGEN 5 mg/dL (7-18); eGFR NON AFRICAN AMERICAN > 90 mL/min (90-120)
== END | disposition home or self-care (01) ==
LOC: D.LABREF 15:38
PROVIDERS: Student in an Organized Health Care Education/Training Program
DX: Z51.81 Encounter for therapeutic drug level monitoring (principal); Z79.2 Long term (current) use of antibiotics

== ENCOUNTER → 2018-06-21 09:09 | Outpatient (CLI) | payer MEDICARE, OTHER ==
[2018-01-06 12:18] VITALS: BMI 17.4
== END | disposition home or self-care (01) ==
LOC: D.CT 09:09
DX: R91.8 Other nonspecific abnormal finding of lung field (principal)

== ENCOUNTER → 2018-06-23 17:46 | Outpatient (CLI) | payer MEDICARE, OTHER ==
[2018-01-06 12:18] VITALS: BMI 17.4
[2018-06-23 19:30] LABS: BASOPHILS 0.4 % (0-2); EOSINOPHILS 1.5 % (0-7); HEMATOCRIT 38.2 % (42.0-54.0); IMMATURE GRANULOCYTES 0.4 % (0-5); LYMPHOCYTES 16.2 % (15-50); MCH 32.1 pg (26.0-34.0); MCV 94.3 fL (80.0-100.0); MEAN PLATELET VOLUME 9.2 fL (7.4-10.4); MONOCYTES 13.3 % (2-11); NEUTROPHILS 68.2 % (40-80); RBC 4.05 10x6/uL (4.20-6.10); WBC 4.8 10x3/uL (4.8-10.8)
[2018-06-23 19:41] LABS: ALBUMIN 3.5 g/dL (3.4-5.0); ALKALINE PHOSPHATASE 92 U/L (46-116); ALT (SGPT) 16 U/L (10-68); BILIRUBIN - TOTAL 0.55 mg/dL (0.2-1.3); CALC OSMOLALITY 264 mosm/kg (275-300); CARBON DIOXIDE 26.7 mmol/L (21.0-32.0); CHLORIDE - SERUM 98 mmol/L (98-107); CREATININE - SERUM 0.9 mg/dL (0.6-1.3); POTASSIUM - SERUM 4.6 mmol/L (3.5-5.1); PROTEIN - SERUM 7.7 g/dL (6.4-8.2); SODIUM 134 mmol/L (136-145); UREA NITROGEN 10 mg/dL (7-18); eGFR NON AFRICAN AMERICAN 89 mL/min (90-120)
[2018-06-23 19:55] LABS: GLUCOSE 70 mg/dL (74-106)
[2018-06-23 19:56] LABS: PLATELET COUNT 274 10x3/uL (130-400)
== END | disposition home or self-care (01) ==
LOC: D.LABREF 17:46
PROVIDERS: Student in an Organized Health Care Education/Training Program
DX: Z51.81 Encounter for therapeutic drug level monitoring (principal); Z79.2 Long term (current) use of antibiotics

== ENCOUNTER 2018-07-19 06:33 | Outpatient (CLI) | payer MEDICARE, OTHER ==
[~2018-07-19] VITALS: Ht 175.3 cm; Wt 57.3 kg
[2018-07-19 06:51] LABS: BASOPHILS 0.5 % (0-2); EOSINOPHILS 1.8 % (0-7); HEMATOCRIT 40.3 % (42.0-54.0); HEMOGLOBIN 13.6 g/dL (13.5-17.5); IMMATURE GRANULOCYTES 0.2 % (0-5); LYMPHOCYTES 15.5 % (15-50); MCH 31.9 pg (26.0-34.0); MCHC 33.7 g/dL (31.0-37.0); MCV 94.6 fL (80.0-100.0); MEAN PLATELET VOLUME 9.1 fL (7.4-10.4); MONOCYTES 11.2 % (2-11); NEUTROPHILS 70.8 % (40-80); PLATELET COUNT 254 10x3/uL (130-400); RBC 4.26 10x6/uL (4.20-6.10); RDW 13.3 % (11.5-14.5); WBC 4.4 10x3/uL (4.8-10.8)
[2018-07-19 07:11] LABS: ANION GAP 11.2 mmol/L (8-16); CALCIUM 9.6 mg/dL (8.5-10.1); CARBON DIOXIDE 27.3 mmol/L (21.0-32.0); CREATININE - SERUM 1.1 mg/dL (0.6-1.3); POTASSIUM - SERUM 4.5 mmol/L (3.5-5.1)
[2018-07-19] MEDS ORDERED: MYAMBUTOL400 MG PO (07:11)
[2018-07-19] MEDS ORDERED: RIFADIN300 MG PO (07:11)
[2018-07-19] MEDS ORDERED: ZITHROMAX500 MG PO (07:12)
[2018-07-19 07:23] VITALS: BP 115/69; Ht 175.3 cm; Wt 57.3 kg
[2018-07-19 07:32] LABS: INR 1.04 (0.85-1.17); PROTIME 13.1 SECONDS (11.6-15.0)
--- NOTE | 2018-07-19 12:13 | NUR ---
1200 SEE POST PROCEDURE CHECKLIST FOR VITAL SIGN TRENDS. BEDREST EXPLAINED. URINAL PROVIDED. O2 AT 3L. AT BEDSIDE. CALL LIGHT AT BEDSIDE.
--- NOTE | 2018-07-19 12:22 | NUR ---
1215 SLEEPY, AROUSES WITH ROOM CHECK, DENIES PROBLEMS. CONTINUES AT SIDE.
--- NOTE | 2018-07-19 14:58 | NUR ---
1415 XRAY HERE TO DO PORT CXR. [address] MAJOR ABOUT STATUS OF RESULTS OF CXR AND NPO STATUS. STATES WILL REPEAT CXR AT 1600 KEEP NPO FOR NOW. PT. INFORMED. DENIES DYSPNEA.
--- NOTE | 2018-07-19 16:02 | NUR ---
1600 PORT CXR DONE.
--- NOTE | 2018-07-19 16:24 | NUR ---
1615 PT WITH NAUSEA NO EMESIS, COOL CLOTH TO FACE, BASIN PROVIDED. 1620 DR. MAJOR NOTIFIED OF NAUSEA, ORDER RECEIVED.
--- NOTE | 2018-07-19 19:56 | NUR ---
1954 CONTINUOUS PULSE OX WITH 97-99% SAT. O2 AT 3L NC
--- NOTE | 2018-07-19 20:13 | NUR ---
2013 REPORT PHONED TO FLOOR NURSE, TO 2109 BY SYLVIA.
--- NOTE | 2018-07-19 20:44 | NUR ---
RECEIVED FROM OUTPATIENTS, IV-LFA, PT IS A&OX4, BED IS LOW, SRX2, CALL LIGHT IN REACH, WILL CONTINUE PLAN OF CARE
--- NOTE | 2018-07-20 03:20 | NUR ---
LYING IN BED, RESPIRATIONS EVEN AND UNLABORED. CALL LIGHT IN REACH, WILL CONTINUE WITH PLAN OF CARE.
[2018-07-20 04:00] VITALS: BP 127/68
--- NOTE | 2018-07-20 08:13 | NUR ---
AM ROUNDS COMPLETED. INTRODUCED MYSELF TO PT PRIMARY RN FOR TODAYS SHIFT. PT IS A&O SITTING UP IN BED RESTING QUIETLY. RR NONLABORED WITH NC @2.5L IN PLCAE. PT IS OBSERVATION AFTER A LUNG BIOPSY AND STATES HE DOESNT NORMALLY WEAR O2. LUNGS ARE CTA THROUGHOUT ALL LOBES, TURNED O2 OFF AND PTS SAT IS 98% ON RA. WILL LEAVE HIM ON RA AND SEE HOW HE DOES. SHIFT ASSESSMENT COMPLETED. PT HAS A DRSG TO L.BACK FROM BIOPSY SITE THAT IS CDI NO S/S OF BLEEDING OR HEMATOMA NOTED. PT RESTING QUIETLY AND DENIES ANY CURRENT PAIN OR NEEDS AT THIS TIME. CL IN REACH, BED IN LOWEST, SIDE RAILS X2. WILL CTM.
[2018-07-20 08:45] VITALS: BP 110/80
--- NOTE | 2018-07-20 10:12 | NUR ---
AMBULATED PT WITHOUT OXYGEN AND PULSE OX STAYED 98%. PT WILL BE DISCHARGED AND IS HAPPY ABOUT THIS. FAMILY AT BEDSIDE. NO CURRENT NEEDS. WILL CTM.
--- NOTE | 2018-07-20 11:38 | NUR ---
D/C PTS L.FA PIV WITH CATHETER TIP FULLY INTACT. DISCHARGE TEACHING PROVIDED AND PAPERS SIGNED. PT VERBALIZED UNDERSTANDING AND DENIES ANY QUESTIONS OR CONCERNS. ALL BELOGINGS COLLECTED PT IS WAITING ON HIS TRANSPORTATION.
== END 2018-07-20 12:32 | disposition home or self-care (01) ==
LOC: D.CT 06:33 → D.M2 06:33 → D.CT 09:00 → D.M2 20:16 → D.CT 07-20 12:32
PROVIDERS: General Practice
DX: R91.8 Other nonspecific abnormal finding of lung field (principal)

== ENCOUNTER → 2018-08-04 18:30 | Outpatient (CLI) | payer MEDICARE, OTHER ==
[2018-07-19 07:23] VITALS: BMI 18.5
[~2018-08-04 18:30] MED LIST changes: +MYAMBUTOL400 MG PO; +RIFADIN300 MG PO; +ZITHROMAX500 MG PO
[2018-08-06 21:07] LABS: AFB SPECIMEN PROCESSING Concentration (())
[2018-08-20 21:07] LABS: ACID FAST SMEAR Positive (())
[2018-08-24 12:16] LABS: ACID FAST CULTURE Positive (()); M TUBERCULOSIS Negative (())
== END | disposition home or self-care (01) ==
LOC: D.LABREF 18:30
PROVIDERS: Student in an Organized Health Care Education/Training Program
DX: A31.0 Pulmonary mycobacterial infection (principal)

== ENCOUNTER → 2018-10-04 08:48 | Outpatient (CLI) | payer MEDICARE, OTHER ==
[2018-07-19 07:23] VITALS: BMI 18.5
== END | disposition home or self-care (01) ==
LOC: D.CT 08:48
PROVIDERS: ATTEND Internal Medicine Pulmonary Disease
DX: R91.8 Other nonspecific abnormal finding of lung field (principal)

== ENCOUNTER → 2018-10-13 17:54 | Outpatient (CLI) | payer MEDICARE, OTHER ==
[2018-07-19 07:23] VITALS: BMI 18.5
[2018-10-13 18:21] LABS: BASOPHILS 0.5 % (0-2); EOSINOPHILS 0.7 % (0-7); HEMATOCRIT 36.7 % (42.0-54.0); HEMOGLOBIN 12.6 g/dL (13.5-17.5); IMMATURE GRANULOCYTES 0.5 % (0-5); LYMPHOCYTES 14.9 % (15-50); MCH 32.7 pg (26.0-34.0); MCHC 34.3 g/dL (31.0-37.0); MCV 95.3 fL (80.0-100.0); MEAN PLATELET VOLUME 9.5 fL (7.4-10.4); MONOCYTES 10.6 % (2-11); NEUTROPHILS 72.8 % (40-80); PLATELET COUNT 268 10x3/uL (130-400); RBC 3.85 10x6/uL (4.20-6.10); RDW 13.2 % (11.5-14.5); WBC 4.2 10x3/uL (4.8-10.8)
[2018-10-13 18:40] LABS: ALBUMIN 3.5 g/dL (3.4-5.0); ALKALINE PHOSPHATASE 100 U/L (46-116); ALT (SGPT) 22 U/L (10-68); BILIRUBIN - TOTAL 0.62 mg/dL (0.2-1.3); CALC OSMOLALITY 261 mosm/kg (275-300); CALCIUM 8.5 mg/dL (8.5-10.1); CARBON DIOXIDE 27.6 mmol/L (21.0-32.0); CHLORIDE - SERUM 98 mmol/L (98-107); CREATININE - SERUM 0.9 mg/dL (0.6-1.3); GLUCOSE 79 mg/dL (74-106); POTASSIUM - SERUM 4.7 mmol/L (3.5-5.1); PROTEIN - SERUM 7.4 g/dL (6.4-8.2); SODIUM 132 mmol/L (136-145); UREA NITROGEN 7 mg/dL (7-18); eGFR NON AFRICAN AMERICAN 89 mL/min (90-120)
== END | disposition home or self-care (01) ==
LOC: D.LABREF 17:54
PROVIDERS: ATTEND Student in an Organized Health Care Education/Training Program
DX: A31.0 Pulmonary mycobacterial infection (principal); Z79.2 Long term (current) use of antibiotics

== ENCOUNTER 2018-11-03 21:25 | Emergency (ER) | payer MEDICARE, OTHER ==
[2018-11-03 21:36] VITALS: BMI 19.2
[2018-11-03 22:16] LABS: BASOPHILS 0.6 % (0-2); EOSINOPHILS 0.9 % (0-7); HEMATOCRIT 37.5 % (42.0-54.0); HEMOGLOBIN 13.3 g/dL (13.5-17.5); LYMPHOCYTES 11.7 % (15-50); MCH 32.9 pg (26.0-34.0); MCHC 35.5 g/dL (31.0-37.0); MCV 92.8 fL (80.0-100.0); MEAN PLATELET VOLUME 8.8 fL (7.4-10.4); MONOCYTES 13.5 % (2-11); NEUTROPHILS 73.3 % (40-80); RBC 4.04 10x6/uL (4.20-6.10); RDW 12.8 % (11.5-14.5); WBC 3.3 10x3/uL (4.8-10.8)
[2018-11-03 22:31] LABS: PLATELET COUNT 211 10x3/uL (130-400)
[2018-11-03 22:33] LABS: ALBUMIN 3.5 g/dL (3.4-5.0); ANION GAP 12.1 mmol/L (8-16); BILIRUBIN - TOTAL 0.24 mg/dL (0.2-1.3); CALCIUM 9.4 mg/dL (8.5-10.1); CARBON DIOXIDE 25.8 mmol/L (21.0-32.0); CREATININE - SERUM 1.1 mg/dL (0.6-1.3); POTASSIUM - SERUM 3.9 mmol/L (3.5-5.1)
[2018-11-03] MEDS ORDERED: ADVAIR HFA [SP]12 GM INH (23:48)
[2018-11-04 00:20] VITALS: BP 129/80
== END 2018-11-04 00:20 | disposition home or self-care (01) ==
LOC: D.ER 21:25
PROVIDERS: Family Medicine
DX: J44.9 Chronic obstructive pulmonary disease, unspecified (principal); A31.0 Pulmonary mycobacterial infection

== ENCOUNTER → 2018-12-07 09:54 | Outpatient (CLI) | payer MEDICARE, OTHER ==
[~2018-12-07 09:54] MED LIST changes: +ADVAIR HFA [SP]12 GM INH
[2018-12-09 16:10] LABS: ACID FAST SMEAR Positive (()); AFB SPECIMEN PROCESSING Concentration (())
== END | disposition home or self-care (01) ==
LOC: D.LAB 09:54
PROVIDERS: ATTEND Student in an Organized Health Care Education/Training Program
DX: A31.0 Pulmonary mycobacterial infection (principal)

== ENCOUNTER → 2018-12-15 16:55 | Outpatient (CLI) | payer MEDICARE, OTHER ==
[2018-12-15 17:09] LABS: BASOPHILS 0.5 % (0-2); EOSINOPHILS 1.4 % (0-7); HEMATOCRIT 37.8 % (42.0-54.0); IMMATURE GRANULOCYTES 0.5 % (0-5); LYMPHOCYTES 13.4 % (15-50); MCH 32.7 pg (26.0-34.0); MCHC 34.4 g/dL (31.0-37.0); MCV 95.2 fL (80.0-100.0); MEAN PLATELET VOLUME 9.5 fL (7.4-10.4); MONOCYTES 14.4 % (2-11); NEUTROPHILS 69.8 % (40-80); PLATELET COUNT 252 10x3/uL (130-400); RBC 3.97 10x6/uL (4.20-6.10); WBC 4.2 10x3/uL (4.8-10.8)
[2018-12-15 17:36] LABS: ALBUMIN 3.6 g/dL (3.4-5.0); ALKALINE PHOSPHATASE 97 U/L (46-116); ALT (SGPT) 25 U/L (10-68); BILIRUBIN - TOTAL 0.63 mg/dL (0.2-1.3); CALC OSMOLALITY 263 mosm/kg (275-300); CALCIUM 8.8 mg/dL (8.5-10.1); CARBON DIOXIDE 27.6 mmol/L (21.0-32.0); CHLORIDE - SERUM 98 mmol/L (98-107); CREATININE - SERUM 0.8 mg/dL (0.6-1.3); GLUCOSE 85 mg/dL (74-106); POTASSIUM - SERUM 4.6 mmol/L (3.5-5.1); PROTEIN - SERUM 7.5 g/dL (6.4-8.2); SODIUM 133 mmol/L (136-145); UREA NITROGEN 10 mg/dL (7-18); eGFR NON AFRICAN AMERICAN > 90 mL/min (90-120)
== END | disposition home or self-care (01) ==
LOC: D.LABREF 16:55
PROVIDERS: ATTEND Student in an Organized Health Care Education/Training Program
DX: Z51.81 Encounter for therapeutic drug level monitoring (principal); Z79.2 Long term (current) use of antibiotics

== ENCOUNTER → 2019-01-03 09:06 | Outpatient (CLI) | payer MEDICARE, OTHER | END | disposition home or self-care (01) | LOC: D.CT 09:06 | PROVIDERS: ATTEND Internal Medicine Pulmonary Disease | DX: R91.8 Other nonspecific abnormal finding of lung field (principal) ==

== ENCOUNTER → 2019-04-06 09:07 | Outpatient (CLI) | payer MEDICARE, OTHER ==
[2019-04-06 10:32] LABS: ALBUMIN 3.1 g/dL (3.4-5.0); BILIRUBIN - DIRECT 0.2 mg/dL (0.00-0.30); BILIRUBIN - INDIRECT 0.33 mg/dL (0.00-1.00); BILIRUBIN - TOTAL 0.53 mg/dL (0.2-1.3); PROTEIN - SERUM 7.7 g/dL (6.4-8.2)
== END | disposition home or self-care (01) ==
LOC: D.LAB 09:07 → D.CT 10:00
PROVIDERS: ATTEND Internal Medicine Pulmonary Disease
DX: J44.9 Chronic obstructive pulmonary disease, unspecified (principal); R91.8 Other nonspecific abnormal finding of lung field

== ENCOUNTER → 2019-05-31 12:21 | Outpatient (CLI) | payer MEDICARE, OTHER | END | disposition home or self-care (01) | LOC: D.CT 12:21 | PROVIDERS: ATTEND Internal Medicine Pulmonary Disease | DX: A31.0 Pulmonary mycobacterial infection (principal) ==

== ENCOUNTER 2019-06-09 06:32 | Inpatient (IN) | payer MEDICARE, OTHER ==
[~2019-06-09] VITALS: Ht 175.3 cm; Wt 49.4 kg
[2019-06-09 07:13] LABS: APTT 37.6 SECONDS (22.8-39.4); INR 1.08 (0.85-1.17); PROTIME 13.5 SECONDS (11.6-15.0)
[2019-06-09 07:19] LABS: ALBUMIN 2.8 g/dL (3.4-5.0); BILIRUBIN - DIRECT 0.07 mg/dL (0.00-0.30); BILIRUBIN - INDIRECT 0.19 mg/dL (0.00-1.00); BILIRUBIN - TOTAL 0.26 mg/dL (0.2-1.3); PROTEIN - SERUM 8.1 g/dL (6.4-8.2)
[2019-06-09 07:37] VITALS: BP 100/55; BMI 16.1
[2019-06-09 08:19] LABS: HEMATOCRIT 33.2 % (42.0-54.0); HEMOGLOBIN 11.1 g/dL (13.5-17.5); LYMPHOCYTES 9.4 % (15-50); MCH 30.2 pg (26.0-34.0); MCHC 33.4 g/dL (31.0-37.0); MCV 90.2 fL (80.0-100.0); MEAN PLATELET VOLUME 8.5 fL (7.4-10.4); NEUTROPHILS 78.9 % (40-80); PLATELET COUNT 300 10x3/uL (130-400); RBC 3.68 10x6/uL (4.20-6.10); RDW 13.7 % (11.5-14.5); WBC 4.7 10x3/uL (4.8-10.8)
--- NOTE | 2019-06-09 09:31 | NUR ---
0915 PT IN ROOM 8807 POST BRONCHOSCOPY. VITAL SIGNS ARE BEING RECORDED ON POST PROCEDURE FORM AND PART OF THE PAPER CHART. VSS.
--- NOTE | 2019-06-09 15:21 | NUR ---
1460 DR DIMAS PAGED TO NOTIFY HIM OF PT'S SHIVERING. DECREASED OXYGEN SATURATION TO 88% AND THAT PT WAS PUT ON BNC 2L/MIN. PT C/O NAUSEA. NO EMESIS. [address] DIMAS AND ABLE TO COMMUNICATE WITH HIM ON THIS ATTEMPT. DR AWARE OF PT'S NAUSEA. HIGH HR AND RESPIRATIONS. PT HAS STOPPED SHIVERING, BUT STILL NAUSEATED. RECEIVED ORDER FOR ZOFRAN.
--- NOTE | 2019-06-09 15:28 | NUR ---
1405 PT STATES HE IS FEELING BETTER AFTER ZOFRAN. TEMPERATURE TAKEN AND IS 103.2. DR DIMAS NOTIFIED. NO ORDERS AT PRESENT. HE IS TO CONTACT HOSPITALIST TO TALK TO HIM ABOUT THIS PATIENT AND TO ADMIT PT TO HOSPITAL. 1500 ORDERS RECEIVED TO ADMIT PT TO DR DIAZ AND ORDERS FAXED TO [facility]AY[facility] ALEJANDROADMINISTRATIVE OPERATIONS COORDINATOR. 1505 NEW IV STARTED IN RIGHT UPPER ARM WITH 20G ANGIOCATH. PREVIOUS IV CLOTTED OFF. IV IN LEFT ARM DC'D. CATHETER TIP INTACT. NO BLEEDING AT SITE. BANDAID APPLIED. THIS IV HAD BEEN STARTED WHEN IV IN RIGHT LOWER ARM CLOTTED OFF TOO. PT'S STATES AT HIS LAST HOSPITALIZATION THAT HE HAD THE SAME PROBLEM WITH IV NOT WORKING. TOTAL IV STARTS IN OPS WAS 3.
--- NOTE | 2019-06-09 15:44 | NUR ---
1525 DR DIMAS HERE TO SEE PT. NO ORDERS RECEIVED. PT IS BEING ADMITTED TO ROOM [address] DIAZ.
--- NOTE | 2019-06-09 15:53 | NUR ---
1550 REPORT CALLED TO NIRAJ DOTSON RN
--- NOTE | 2019-06-09 15:57 | NUR ---
1556 PT READY FOR TRANSFER TO 1208 VIA STRETCHER. PT SHOWS NO SIGNS OF DISTRESS. RESPIRATIONS REGULAR AT 32 BREATHS PER MINUTE. DENIES NAUSEA. NO EMESIS. O2 SAT IS 94% ON ROOM AIR. B/P STABLE.
[2019-06-09 16:57] VITALS: BP 109/64
[2019-06-09 18:56] LABS: BASOPHILS 0.1 % (0-2); EOSINOPHILS 0 % (0-7); HEMOGLOBIN 9.4 g/dL (13.5-17.5); IMMATURE GRANULOCYTES 0.3 % (0-5); LYMPHOCYTES 2.8 % (15-50); MCH 29.3 pg (26.0-34.0); MCHC 32.4 g/dL (31.0-37.0); MCV 90.3 fL (80.0-100.0); MEAN PLATELET VOLUME 8.5 fL (7.4-10.4); MONOCYTES 3.6 % (2-11); NEUTROPHILS 93.2 % (40-80); PLATELET COUNT 282 10x3/uL (130-400); RBC 3.21 10x6/uL (4.20-6.10); RDW 13.8 % (11.5-14.5)
[2019-06-09 18:57] LABS: WBC 9.3 10x3/uL (4.8-10.8)
[2019-06-09 19:08] LABS: ALBUMIN 2.2 g/dL (3.4-5.0); ALKALINE PHOSPHATASE 64 U/L (46-116); ALT (SGPT) 13 U/L (10-68); BILIRUBIN - TOTAL 0.37 mg/dL (0.2-1.3); CALC OSMOLALITY 261 mosm/kg (275-300); CALCIUM 7.9 mg/dL (8.5-10.1); CARBON DIOXIDE 23.4 mmol/L (21.0-32.0); CHLORIDE - SERUM 98 mmol/L (98-107); GLUCOSE 144 mg/dL (74-106); POTASSIUM - SERUM 3.8 mmol/L (3.5-5.1); PROTEIN - SERUM 6.4 g/dL (6.4-8.2); SODIUM 130 mmol/L (136-145); UREA NITROGEN 8 mg/dL (7-18); eGFR NON AFRICAN AMERICAN 79 mL/min (90-120)
[2019-06-09 20:08] VITALS: BP 86/57
--- NOTE | 2019-06-09 23:32 | NUR ---
ASSESSED AT THE BEGINNING OF THE SHIFT. PT IS ALERT AND ORIENTED, ABLE TO VERBALIZE NEEDS. BRUCE MARRUFO WAS SEEING HER AT THIS TIME AND ORDERS WERE NOTED. PT WAS GIVEN A Big FrameWICH TRAY AND DRINK WHICH HE REQUESTED. HE WAS ABLE TO EAT WITHOUT ANY PROBLEMS NOTED. LATER HE REQUESTED HIS NIGHTLY ATIVAN FOR SLEEP SO BRUCE WAS CALLED TO GET THE ORDER. AT THIS TIME HE IS SLEEPING WELL
[2019-06-10] VITALS: BP 159/96
[2019-06-10 01:04] LABS: APPEARANCE CLEAR (CLEAR); COLOR YELLOW (YELLOW); SPECIFIC GRAVITY 1.005 (1.005-1.020)
[2019-06-10 01:05] LABS: BACTERIA FEW /hpf (NEGATIVE); BILIRUBIN NEGATIVE (NEGATIVE); EPITHELIAL CELLS 0-5 /hpf (0-5); GLUCOSE NEGATIVE (NEGATIVE); KETONE NEGATIVE (NEGATIVE); NITRITE NEGATIVE (NEGATIVE); PROTEIN NEGATIVE (NEGATIVE); RED CELLS - URINE 0-5 /hpf (0-5); UROBILINOGEN NORMAL (NORMAL); WHITE CELLS - URINE NSEEN /hpf (NEGATIVE)
[2019-06-10 04:00] VITALS: BP 98/65
[2019-06-10 05:54] LABS: BASOPHILS 0.1 % (0-2); EOSINOPHILS 0.1 % (0-7); HEMATOCRIT 29.5 % (42.0-54.0); HEMOGLOBIN 9.5 g/dL (13.5-17.5); IMMATURE GRANULOCYTES 0.3 % (0-5); LYMPHOCYTES 5.8 % (15-50); MCH 29.2 pg (26.0-34.0); MCHC 32.2 g/dL (31.0-37.0); MCV 90.8 fL (80.0-100.0); MEAN PLATELET VOLUME 8.9 fL (7.4-10.4); MONOCYTES 4.2 % (2-11); NEUTROPHILS 89.5 % (40-80); PLATELET COUNT 290 10x3/uL (130-400); RBC 3.25 10x6/uL (4.20-6.10); RDW 14.1 % (11.5-14.5); WBC 7.9 10x3/uL (4.8-10.8)
[2019-06-10 06:23] LABS: ALBUMIN 2.1 g/dL (3.4-5.0); ALKALINE PHOSPHATASE 62 U/L (46-116); ALT (SGPT) 13 U/L (10-68); BILIRUBIN - TOTAL 0.32 mg/dL (0.2-1.3); CALC OSMOLALITY 261 mosm/kg (275-300); CALCIUM 8.2 mg/dL (8.5-10.1); CARBON DIOXIDE 24.3 mmol/L (21.0-32.0); CHLORIDE - SERUM 101 mmol/L (98-107); GLUCOSE 88 mg/dL (74-106); MAGNESIUM - SERUM 1.7 mg/dL (1.8-2.4); POTASSIUM - SERUM 4.3 mmol/L (3.5-5.1); SODIUM 132 mmol/L (136-145); THYROID STIMULATING HORMONE 2.23 uIU/mL (0.36-3.74); UREA NITROGEN 8 mg/dL (7-18); eGFR NON AFRICAN AMERICAN 79 mL/min (90-120)
--- NOTE | 2019-06-10 07:16 | NUR ---
REPORT RECEIVED. WILL CONTINUE WITH POC. PT CURRENTLY LYING HIGH FOWLERS. CALL LIGHT W/I REACH. PT IS AAO AND UP AD TEX. RR EVEN AND UNLABORED ON RA. NS INFSUING @75ML/HR VIA R.FOR PIV. NO S/S OF DISTRESS NOTED. PT DENIES ANY NEEDS. WILL CTM.
[2019-06-10 08:00] VITALS: BP 117/59
[2019-06-10 08:48] LABS: % SATURATION 9 % (15-55); IRON 11 ug/dl (35-150); TOTAL IRON BIND CAPACITY 115 ug/dl (260-445); UNSAT IRON BIND CAPACITY 104 ug/dl (150-375)
--- NOTE | 2019-06-10 10:34 | NUR ---
RECEIVED VERBAL ORDERS TO RESTART HOME DOSE OF ETHAMBUTOL, RIFAMPIN, AZITHROMYCIN, AND THERAGRAM PER . PLACED ORDER FOR MEDICATIONS. WILL CTM.
[2019-06-10 13:04] VITALS: Ht 175.3 cm; Wt 49.4 kg
[2019-06-10 15:10] LABS: FUNGUS STAIN Final report (())
--- NOTE | 2019-06-10 17:34 | NUR ---
25MG Q4HP PHENERGAN ORDER PLACED PER VERBAL ORDER OF . PHENERGAN ADMININSTERED. PT LYING SEMI FOWLERS. CALL LIGHT W/I REACH. FAMILY AT BEDSIDE. PT DENIES ANY NEEDS. WILL CTM.
--- NOTE | 2019-06-10 17:34 | NUR ---
I have reviewed this patient and I concur with the Shift Assessment completed by the Licensed Practical Nurse today this shift.
[2019-06-10 18:08] LABS: ACID FAST SMEAR Positive (()); AFB SPECIMEN PROCESSING Concentration (())
--- NOTE | 2019-06-10 18:30 | NUR ---
ORAL TEMP OF 100.6 RECORDED. ADMININSTERED ORDERED DOSE OF TYLENOL. RECHECKED 35 MINUTES LATER AND RECORDED ORAL TEMP OF 102.2. REMOVED COVERS AND PLACED COOL WASH RAG ON PATIENTS NECK, RECHECKED 5 MINUTES LATER AND IT HAD DECREASED TO 100.3. WILL CTM.
[2019-06-10 20:05] VITALS: BP 115/75
[2019-06-11] VITALS: BP 123/68
--- NOTE | 2019-06-11 03:50 | NUR ---
ASSESSED AT THE BEGINNING OF THE SHIFT. PT IS ALERT AND ORIENTED, ABLE TO VERBALIZE NEEDS. WAS AT THE BEDSIDE FOR A WHILE AND THEY HAD A GOOD VISIT. MR ROWE IS USING A URINAL AND IS ALSO ABLE TO GET UP TO THE BATHROOM. HE IS NOT WEARING O2 AND DURING HIS MIDNIGHT VIAL SIGNS HIS TEMP WAS 103. WHICH WE TREATED WITH TYLENOL. HE HAS BEEN RESTING QUIET AND AT TIMES WATCHING TV. THE BED IS LOW, RAILS UP X'S 2 WITH THE CALL LIGHT AT HAND.
[2019-06-11 04:00] VITALS: BP 104/62
[2019-06-11 06:08] LABS: BASOPHILS 0.2 % (0-2); EOSINOPHILS 0.4 % (0-7); HEMATOCRIT 29.2 % (42.0-54.0); HEMOGLOBIN 9.6 g/dL (13.5-17.5); IMMATURE GRANULOCYTES 0.2 % (0-5); LYMPHOCYTES 9.1 % (15-50); MCH 29.4 pg (26.0-34.0); MCHC 32.9 g/dL (31.0-37.0); MCV 89.6 fL (80.0-100.0); MEAN PLATELET VOLUME 8.7 fL (7.4-10.4); MONOCYTES 6.2 % (2-11); NEUTROPHILS 83.9 % (40-80); PLATELET COUNT 269 10x3/uL (130-400); RBC 3.26 10x6/uL (4.20-6.10); RDW 14.1 % (11.5-14.5)
[2019-06-11 06:14] LABS: WBC 4.8 10x3/uL (4.8-10.8)
[2019-06-11 06:38] LABS: CALC OSMOLALITY 257 mosm/kg (275-300); CALCIUM 8.5 mg/dL (8.5-10.1); CARBON DIOXIDE 22.1 mmol/L (21.0-32.0); CHLORIDE - SERUM 99 mmol/L (98-107); CREATININE - SERUM 0.8 mg/dL (0.6-1.3); GLUCOSE 86 mg/dL (74-106); MAGNESIUM - SERUM 1.7 mg/dL (1.8-2.4); PHOSPHOROUS 2.6 mg/dL (2.5-4.9); POTASSIUM - SERUM 3.8 mmol/L (3.5-5.1); SODIUM 130 mmol/L (136-145); UREA NITROGEN 6 mg/dL (7-18); eGFR NON AFRICAN AMERICAN > 90 mL/min (90-120)
[2019-06-11 07:56] VITALS: BP 126/75
--- NOTE | 2019-06-11 08:37 | NUR ---
PT GOT UP TO USE RESTROOM AND STATES "IV GOT HUNG ON GOWN AND IT CAME OUT." RIGHT FA 20G IV DC'D(BY PT) WITH CATH INTACT. WILL RESTART IV.
--- NOTE | 2019-06-11 09:44 | NUR ---
PT STATES HE WANTS TO WAIT FOR NEW IV UNTIL AFTER HE SHOWERS. HE STATES HIS WILL BE HERE IN 45 MIN. WITH HIS SHOWER STUFF. I VERBALIZED UNDERSTANDING.
--- NOTE | 2019-06-11 12:15 | NUR ---
PT HAS TAKEN A SHOWER. AT BEDSIDE. WILL RESTART IV.
[2019-06-11 12:18] VITALS: BP 102/59
--- NOTE | 2019-06-11 12:30 | NUR ---
LEFT FA 20G IV INSERTED ON FIRST ATTEMPT. IVF RESTARTED AND MAGNESIUM SULFATE.
--- NOTE | 2019-06-11 15:34 | NUR ---
PT REPORTING FEELING FEVERISH. ORAL TEMP RETURNED AT 100.8
--- NOTE | 2019-06-11 19:08 | NUR ---
I have reviewed this patient and I concur with the Shift Assessment completed by the Licensed Practical Nurse today this shift.
[2019-06-11 19:34] VITALS: BP 98/55
--- NOTE | 2019-06-11 19:34 | NUR ---
PATIENT RESTING IN BED WITH NO S/S OF DISTRESS AND DENIES NEEDS AT THIS TIME. VSS. BED IN LOWEST POSITION AND CALL LIGHT WITHIN REACH. ENCOURAGED THE PATIENT TO CALL IF HE HAS NEEDS. WILL CONTINUE TO MONITOR.
--- NOTE | 2019-06-11 20:50 | NUR ---
PATIENT RESTING IN BED WITH NO S/S OF DISTRESS. PATIENT REQUESTED ATIVAN WITH NIGHT MEDS. ADMINISTERED MEDS PER ORDERS. PATIENT DENIES OTHER NEEDS AT THIS TIME. BED IN LOWEST POSITION AND CALL LIGHT WITHIN REACH. ENCOURAGED THE PATIENT TO CALL IF THEY HAVE NEEDS. WILL CONTINUE TO MONITOR.
--- NOTE | 2019-06-11 23:03 | NUR ---
PATIENT RESTING IN BED WITH EYES CLOSED AND NO S/S OF DISTRESS. BED IN LOWEST POSITION AND CALL LIGHT WITHIN REACH. WILL CONTINUE TO MONITOR.
[2019-06-11 23:47] VITALS: BP 107/63
--- NOTE | 2019-06-12 03:47 | NUR ---
PATIENT RESTING IN BED WITH EYES CLOSED AND NO S/S OF DISTRESS. WILL CONTINUE TO MONITOR.
[2019-06-12 05:07] VITALS: BP 112/68
[2019-06-12 05:31] LABS: BASOPHILS 0.2 % (0-2); EOSINOPHILS 1.1 % (0-7); HEMATOCRIT 30.1 % (42.0-54.0); HEMOGLOBIN 9.9 g/dL (13.5-17.5); LYMPHOCYTES 5.3 % (15-50); MCH 29.5 pg (26.0-34.0); MCHC 32.9 g/dL (31.0-37.0); MCV 89.6 fL (80.0-100.0); MEAN PLATELET VOLUME 8.7 fL (7.4-10.4); MONOCYTES 5.5 % (2-11); NEUTROPHILS 87.9 % (40-80); PLATELET COUNT 274 10x3/uL (130-400); RBC 3.36 10x6/uL (4.20-6.10); RDW 14.1 % (11.5-14.5); WBC 4.5 10x3/uL (4.8-10.8)
[2019-06-12 05:45] LABS: CALC OSMOLALITY 257 mosm/kg (275-300); CALCIUM 8.5 mg/dL (8.5-10.1); CARBON DIOXIDE 24.3 mmol/L (21.0-32.0); CHLORIDE - SERUM 98 mmol/L (98-107); CREATININE - SERUM 0.7 mg/dL (0.6-1.3); GLUCOSE 106 mg/dL (74-106); PHOSPHOROUS 2.1 mg/dL (2.5-4.9); POTASSIUM - SERUM 3.9 mmol/L (3.5-5.1); SODIUM 130 mmol/L (136-145); UREA NITROGEN 5 mg/dL (7-18); eGFR NON AFRICAN AMERICAN > 90 mL/min (90-120)
[2019-06-12 07:48] VITALS: BP 109/69
--- NOTE | 2019-06-12 08:02 | NUR ---
PT SITTING UP IN BED. RR EVEN AND UNLABORED. DENIES NEEDS OR PAIN AT THIS TIME. VSS. ASSESSMENT COMPLETE. BED CHASITY LOWEST POSITION. CALL LIGHT WITHIN REACH. WILL CONTINUE TO MONITOR.
--- NOTE | 2019-06-12 11:05 | NUR ---
I have reviewed this patient and I concur with the Shift Assessment completed by the Licensed Practical Nurse today this shift.
[2019-06-12 19:31] VITALS: BP 130/74
--- NOTE | 2019-06-12 19:31 | NUR ---
PATIENT RESTING IN BED WITH NO S/S OF DISTRESS. VSS. PATIENT REQUESTED WITH HER NIGHT MEDS. PATIENT DENIES OTHER NEEDS AT THIS TIME. BED IN LOWEST POSITION AND CALL LIGHT WITHIN REACH. ENCOURAGED THE PATIENT TO CALL IF HE HAS NEEDS. WILL CONTINUE TO MONITOR.
--- NOTE | 2019-06-12 21:14 | NUR ---
ADMINISTERED MEDS PER ORDERS. PATIENT DENIES OTHER NEEDS AT THIS TIME. ENCOURAGED PATIENT TO CALL IF HE HAS NEEDS.
[2019-06-12 23:24] VITALS: BP 92/57
--- NOTE | 2019-06-13 02:32 | NUR ---
CALLED INTELLIGENCE SPECIALIST TO PULL UNVERIFIED 0200 MER[address]. INTELLIGENCE SPECIALIST ON MONITORS AND WILL PULL SOON POSSIBLE
[2019-06-13 03:13] VITALS: BP 109/70
[2019-06-13 06:15] LABS: BASOPHILS 0.5 % (0-2); EOSINOPHILS 2.2 % (0-7); HEMATOCRIT 28.1 % (42.0-54.0); HEMOGLOBIN 9.2 g/dL (13.5-17.5); IMMATURE GRANULOCYTES 0.3 % (0-5); LYMPHOCYTES 9.9 % (15-50); MCH 29.2 pg (26.0-34.0); MCHC 32.7 g/dL (31.0-37.0); MCV 89.2 fL (80.0-100.0); MEAN PLATELET VOLUME 8.9 fL (7.4-10.4); MONOCYTES 11.3 % (2-11); NEUTROPHILS 75.8 % (40-80); PLATELET COUNT 282 10x3/uL (130-400); RBC 3.15 10x6/uL (4.20-6.10); RDW 14.4 % (11.5-14.5); WBC 3.6 10x3/uL (4.8-10.8)
[2019-06-13 06:30] LABS: CALC OSMOLALITY 258 mosm/kg (275-300); CALCIUM 8.1 mg/dL (8.5-10.1); CARBON DIOXIDE 22.5 mmol/L (21.0-32.0); CHLORIDE - SERUM 101 mmol/L (98-107); CREATININE - SERUM 0.6 mg/dL (0.6-1.3); GLUCOSE 89 mg/dL (74-106); MAGNESIUM - SERUM 1.9 mg/dL (1.8-2.4); PHOSPHOROUS 2.6 mg/dL (2.5-4.9); POTASSIUM - SERUM 4.4 mmol/L (3.5-5.1); SODIUM 131 mmol/L (136-145); UREA NITROGEN 5 mg/dL (7-18); eGFR NON AFRICAN AMERICAN > 90 mL/min (90-120)
[2019-06-13 07:06] VITALS: BP 127/66
--- NOTE | 2019-06-13 07:12 | NUR ---
PT RESTING IN BED WATCHING TV, SHIFT ASSESSMENT PERFORMED. PT ALERT AND ANSWERS ALL QUESTIONS. VSS. CALL LIGHT WITHIN REACH. WILL CONT TO FOLLOW POC
[2019-06-13 11:24] VITALS: BP 111/63
--- NOTE | 2019-06-13 12:03 | NUR ---
PT RESTING IN BED, VSS AND WNL. CALL LIGHT WITHIN REACH, NS AT 75ML/HR ORDERED THROUGH LEFT FA PIV. DENIES ANY NEEDS AT THIS TIME, WILL CONT TO FOLLOW POC
--- NOTE | 2019-06-13 13:06 | NUR ---
Nutrition Follow-up: Diet: Regular PO intake: ~46% average x last 6 meals; he reports a good appetite but that he is getting nausea after eating. States that he has been drinking chocolate boost with every meal. Last BM: 06/13/19. Wt: 109# (06/10/19) Significant meds: zithromax, merrem, rifampin, myambutol. Labs reviewed. Continue regular diet. Encourage PO Intake. Will add oral nutrition supplement and food preferences to diet order. RD following.
--- NOTE | 2019-06-13 14:42 | MORECARE ---
CASE MANAGEMENT DISCHARGE SUMMARY PATIENT: ESTHER ROWE UNIT: [id number] ADM DATE: 06/09/19 AGE: 69 : 51 SEX: M ROOM/BED: D.1208 AUTHOR: ADAMA DANG PHYSICIAN: REFERRING PHYSICIAN: HERB DIAZ MD DATE OF SERVICE: 06/13/19 Discharge Plan Patient Name: ESTHER ROWE [facility] [facility] 1950 Planned Disposition: Home Anticipated Discharge Date: Discharge Date: Expected LOS: Initial Reviewer: [email or web address] Initial Review Date: 06/13/2019 Generated: 06/13/19 3:42 pm Patient Name: ESTHER ROWE Page [id number] at 1442 All edits/amendments must be made on the electronic document DICTATION DATE: 06/13/19 144 ABALONE DIVER: FILIBERTO 06/13/19 1442 RPT#: [id number] DC DATE: STATUS: ADM IN [facility] [address] [place] [address] END OF REPORT
--- NOTE | 2019-06-13 14:51 | MORECARE ---
CASE MANAGEMENT DISCHARGE SUMMARY PATIENT: ESTHER ROWE UNIT: [id number] ADM DATE: 06/09/19 AGE: 69 : 51 SEX: M ROOM/BED: D.1208 AUTHOR: ADAMA DANG PHYSICIAN: REFERRING PHYSICIAN: HERB DIAZ MD DATE OF SERVICE: 06/13/19 Discharge Plan Patient Name: ESTHER ROWE [facility] [facility] 1950 Planned Disposition: Home Anticipated Discharge Date: Discharge Date: Expected LOS: Initial Reviewer: [email or web address] Initial Review Date: 06/13/2019 Generated: 06/13/19 3:51 pm DCPIA - Discharge Planning Initial Assessment Updated by [email or web address]: Vika Rios on 06/13/19 2:49 pm * Is the patient Alert and Oriented? Yes * How many steps to enter\exit or inside your home? * PCP MORGAN Vicente * Pharmacy [facility] * Preadmission Environment Home with Family * ADLs Independent * Equipment Nebulizer * Other Equipment percussion vest, * List name and contact numbers for known caregivers / representatives who currently or will assist patient after discharge: TATIANA ROWE - SPOUSE - [phone] * Verbal permission to speak to the caregivers and representatives has been obtained from the patient. Yes * Community resources currently utilized None * Additional services required to return to the preadmission environment? No * Can the patient safely return to the preadmission environment? Yes * Has this patient been hospitalized within the prior 30 days at any hospital? No Last DP export: 06/13/19 1:42 p Patient Name: ESTHER ROWE Page 84175 at 1451 All edits/amendments must be made on the electronic document DICTATION DATE: 06/13/191450 FAMILY PRACTICE NURSE PRACTITIONER: FILIBERTO 06/13/191450 RPT#: [id number] DC DATE: STATUS: ADM IN [facility] [address] [place] [address] END OF REPORT
--- NOTE | 2019-06-13 15:02 | MORECARE ---
CASE MANAGEMENT DISCHARGE SUMMARY PATIENT: ESTHER ROWE UNIT: [id number] ADM DATE: 06/09/19 AGE: 69 : 51 SEX: M ROOM/BED: D.1208 AUTHOR: ALTONDOC PHYSICIAN: REFERRING PHYSICIAN: HERB DIAZ MD DATE OF SERVICE: 06/13/19 Discharge Plan Patient Name: ESTHER ROWE Facility: [facility]:[place] : 1950 Planned Disposition: Home Anticipated Discharge Date: Discharge Date: Expected LOS: Initial Reviewer: [email or web address] Initial Review Date: 06/13/2019 Generated: 06/13/19 4:01 pm Comments DCP- Discharge Planning Updated by [email or web address]: Vika Rios on 06/13/19 1:[address] Patient Name: ESTHER ROWE Admission Status: Elective Accout number: [id number] Admission Date: 06-09-2019 : 1950 Admission Diagnosis: Attending: HERB DIAZ Current LOS: 4 Anticipated DC Date: Planned Disposition: Home Primary Insurance: MEDICARE A & B Discharge Planning Comments: CM met with patient at bedside after explaining CM role and obtaining verbal consent. Patient lives at home with his Tatiana where he is independent with his care and plans to return there upon discharge. Patient feels this would be a safe discharge. CM discussed availability / needs of home health and medical equipment. Patient states he has Nebulizer and pulmonary vest with [facility]. Patient denies any discharge needs at this time. Patient states he will have his family drive him home upon discharge. CM will continue to follow and assist as needed with discharge planning / needs. Clock And Watch Assembler: Vika Rios DCPIA - Discharge Planning Initial Assessment Updated by [email or web address]: Vika Rios on 06/13/19 2:49 pm * Is the patient Alert and Oriented? Yes * How many steps to enter\exit or inside your home? * PCP MORGAN Vicente * [facility]acy [facility] [place] * Preadmission Environment Home with Family * ADLs Independent * Equipment Nebulizer * Other Equipment percussion vest, * List name and contact numbers for known caregivers / representatives who currently or will assist patient after discharge: TATIANA ROWE - SPOUSE - [phone] * Verbal permission to speak to the caregivers and representatives has been obtained from the patient. Yes * Community resources currently utilized None * Additional services required to return to the preadmission environment? No * Can the patient safely return to the preadmission environment? Yes * Has this patient been hospitalized within the prior 30 days at any hospital? No Last DP export: 06/13/19 1:51 p Patient Name: ESTHER ROWE Page 14705 at 1502 All edits/amendments must be made on the electronic document DICTATION DATE: 06/13/19 1501 AIRCRAFT POWERTRAIN REPAIRER: FILIBERTO 06/13/19 1501 RPT#: [id number] DC DATE: STATUS: ADM IN [facility] [address] [place] [address] END OF REPORT
[2019-06-13 16:02] VITALS: BP 147/76
--- NOTE | 2019-06-13 18:33 | NUR ---
PATIENT RESTING WITH NO NEEDS VOICED, CL IN REACH
[2019-06-13 19:24] VITALS: BP 115/70
--- NOTE | 2019-06-13 19:26 | NUR ---
PT IS RESTING IN BED WITH EYES OPEN. ALERT AND ORIENTED X 3. DENIES ACUTE DISCOMFORT AT THIS TIME. VSS. O2 IS ON @ 2LPM PER NC. NO SOB NOTED AT THIS TIME. TELEMETRY UNIT IS ON AND INTACT. SR'S ARE UP X 2 IN BED. CALL LIGHT AND BEDSIDE TABLE ARE WITHIN EASY REACH.
--- NOTE | 2019-06-13 23:25 | NUR ---
RESTING IN BED WITH EYES CLOSED.
--- NOTE | 2019-06-13 23:53 | NUR ---
I have reviewed this patient and I concur with the Shift Assessment completed by the Licensed Practical Nurse today this shift.
[2019-06-14 00:14] VITALS: BP 105/62
--- NOTE | 2019-06-14 02:51 | NUR ---
PT IS RESTING QUIETLY IN BED WITH EYES CLOSED. RESPS ARE EVEN AND UNLABORED. NO ACUTE DISTRESS NOTED.
[2019-06-14 04:05] VITALS: BP 112/74
[2019-06-14 05:54] LABS: BASOPHILS 0.3 % (0-2); EOSINOPHILS 0.6 % (0-7); HEMATOCRIT 27.7 % (42.0-54.0); IMMATURE GRANULOCYTES 0.3 % (0-5); MCH 28.8 pg (26.0-34.0); MCHC 32.5 g/dL (31.0-37.0); MCV 88.5 fL (80.0-100.0); MEAN PLATELET VOLUME 8.9 fL (7.4-10.4); MONOCYTES 11.6 % (2-11); NEUTROPHILS 76.2 % (40-80); PLATELET COUNT 283 10x3/uL (130-400); RBC 3.13 10x6/uL (4.20-6.10); RDW 14.1 % (11.5-14.5); WBC 3.4 10x3/uL (4.8-10.8)
[2019-06-14 06:21] LABS: CALCIUM 7.9 mg/dL (8.5-10.1); CARBON DIOXIDE 21.7 mmol/L (21.0-32.0); CHLORIDE - SERUM 97 mmol/L (98-107); GLUCOSE 94 mg/dL (74-106); MAGNESIUM - SERUM 1.7 mg/dL (1.8-2.4); PHOSPHOROUS 2.5 mg/dL (2.5-4.9); POTASSIUM - SERUM 4.2 mmol/L (3.5-5.1); SODIUM 127 mmol/L (136-145)
[2019-06-14 06:25] LABS: CALC OSMOLALITY 252 mosm/kg (275-300); CREATININE - SERUM 0.8 mg/dL (0.6-1.3); UREA NITROGEN 7 mg/dL (7-18); eGFR NON AFRICAN AMERICAN > 90 mL/min (90-120)
--- NOTE | 2019-06-14 07:07 | NUR ---
REPORT RECEIVED. WILL CONTINUE WITH POC. PT CURRENTLY LYING SEMI FOWLERS. CALL LIGHT W/I REACH. PT IS AAO AND UP AD TEX. PT ONLY REQUEST WAS FOR COFFEE. NO S/S OF DISTRESS NOTED. RR EVEN AND UNLABORED ON 2L 02. NS INFUSING @75ML/HR VIA L.FOR PIV. PT DENIES ANY FURTHER NEEDS. WILL CTM.
[2019-06-14 07:50] VITALS: BP 111/71
--- NOTE | 2019-06-14 10:14 | NUR ---
I have reviewed this patient and I concur with the Shift Assessment completed by the Licensed Practical Nurse today this shift.
--- NOTE | 2019-06-14 10:24 | NUR ---
PT REPORTS OF VOMITING SMALL AMOUNT(LESS THAN 5ML) OF DARK BROWN EMESIS. ADMININSTERED ORDERED DOSE OF ZOFRAN. WILL CTM.
[2019-06-14 12:00] VITALS: BP 106/60
[2019-06-14 16:22] VITALS: BP 118/73
[2019-06-14 19:30] VITALS: BP 125/71
--- NOTE | 2019-06-14 19:45 | NUR ---
ALERT AND ORIENTED X4. LYING IN BED. APPEARS WEAK AND ILL. O2 @ 2L/NC. RESP IRREG, LABORED. REPORTS PROD COUGH WITH CLEAR SPUTUM. TELEMETRY SHOWS SR WITH RATE OF 82. DENIES PAIN. USES URINAL. NS @ 75 MLHR INFUSING IN LT FOREARM WITHOUT DIFF. SR ELEVATED X2. CL IN REACH. TALKATIVE WITH STAFF. NO DISTRESS.
--- NOTE | 2019-06-14 21:05 | NUR ---
MEDICATED WITH ATIVAN FOR C/O ANXIETY. CL IN REACH.
[2019-06-15 00:15] VITALS: BP 129/83
--- NOTE | 2019-06-15 01:46 | NUR ---
HAS RESTED WELL TONIGHT. LYING ON LT SIDE IN BED WITH EYES CLOSED. RESP EVEN AND NONLABORED. CL IN REACH.
[2019-06-15 03:49] VITALS: BP 114/70
--- NOTE | 2019-06-15 03:50 | NUR ---
MEDICATED WITH TYLENOL FOR LOW GRADE TEMP. NO DISTRESS. CL IN REACH.
[2019-06-15 07:00] VITALS: BP 110/65
--- NOTE | 2019-06-15 07:00 | NUR ---
PT REPORT RECEIVED FROM TELEPHOTO ENGINEER NURSE. SHIFT ASSESSMENT COMPLETED. NO VISIBLE SIGNS OF DISTRESS NOTED. WILL CONTINUE TO MONITOR
[2019-06-15 07:01] LABS: ALKALINE PHOSPHATASE 60 U/L (46-116); ALT (SGPT) 25 U/L (10-68); AMYLASE - SERUM 50 U/L (25-115); BILIRUBIN - TOTAL 0.21 mg/dL (0.2-1.3); CALC OSMOLALITY 252 mosm/kg (275-300); CALCIUM 8.1 mg/dL (8.5-10.1); CARBON DIOXIDE 22.6 mmol/L (21.0-32.0); CHLORIDE - SERUM 96 mmol/L (98-107); CREATININE - SERUM 0.7 mg/dL (0.6-1.3); GLUCOSE 106 mg/dL (74-106); LIPASE 121 U/L (73-393); MAGNESIUM - SERUM 1.7 mg/dL (1.8-2.4); PHOSPHOROUS 2.5 mg/dL (2.5-4.9); POTASSIUM - SERUM 4.5 mmol/L (3.5-5.1); PROTEIN - SERUM 5.8 g/dL (6.4-8.2); SODIUM 127 mmol/L (136-145); UREA NITROGEN 7 mg/dL (7-18); eGFR NON AFRICAN AMERICAN > 90 mL/min (90-120)
[2019-06-15 07:02] LABS: BASOPHILS 0.2 % (0-2); EOSINOPHILS 0.6 % (0-7); HEMATOCRIT 28.5 % (42.0-54.0); HEMOGLOBIN 9.2 g/dL (13.5-17.5); IMMATURE GRANULOCYTES 0.2 % (0-5); LYMPHOCYTES 4.4 % (15-50); MCH 28.8 pg (26.0-34.0); MCHC 32.3 g/dL (31.0-37.0); MCV 89.3 fL (80.0-100.0); MONOCYTES 10.7 % (2-11); NEUTROPHILS 83.9 % (40-80); PLATELET COUNT 273 10x3/uL (130-400); RBC 3.19 10x6/uL (4.20-6.10)
--- NOTE | 2019-06-15 09:00 | NUR ---
PT IV LEAKING. REMOVED IV AND RESITED TO LEFT UPPER ARM. PT TOLERATED WELL. WILL CONTINUE TO MONITOR
[2019-06-15 10:10] LABS: FUNGUS MYCOLOGY CULTURE Preliminary report (())
[2019-06-15 11:00] VITALS: BP 126/68
--- NOTE | 2019-06-15 14:00 | NUR ---
Nutrition Follow-up: Diet: NPO for Bronch today (was Regular + Ensure TID) PO intake: 46% average x last 6 meals recorded. States that he is trying to drink Ensure and drinks 2 whole milk with each meal tray. He was having some nausea while I was in the room. He wants to go home. Last BM: 06/13/19 x 2. WT: 109# (06/10/19), no new wt Significant meds: IV abx, zithromax, merrem, levoquin. Labs reviewed Recommend ADAT back to Regular + Ensure TID. Encourage PO intake. RD following.
--- NOTE | 2019-06-15 14:41 | MORECARE ---
CASE MANAGEMENT DISCHARGE SUMMARY PATIENT: ESTHER ROEW UNIT: [id number] ADM DATE: 06/09/19 AGE: 69 : 51 SEX: M ROOM/BED: D.1208 AUTHOR: ALTON,DOC PHYSICIAN: REFERRING PHYSICIAN: HERB DIAZ MD DATE OF SERVICE: 06/15/19 Discharge Plan Patient Name: ESTHER ROWE Facility: [facility]:[place] : 1950 Planned Disposition: Home Anticipated Discharge Date: Discharge Date: Expected LOS: Initial Reviewer: [email or web address] Initial Review Date: 06/13/2019 Generated: 06/15/19 3:41 pm Comments DCP- Discharge Planning Updated by [email or web address]: Kaur Nesbitt on 06/15/19 1:[address] Patient Name: ESTHER ROWE Admission Status: Elective Accout number: [id number] Admission Date: 06-09-2019 : 1950 Admission Diagnosis: Attending: HERB DIAZ Current LOS: 6 Anticipated DC Date: Planned Disposition: Home Primary Insurance: MEDICARE A & B Discharge Planning Comments: WALK TEST AND DOCUMENTS SENT TO [facility]. THEY WILL DELIVER HIS OXYGEN. CM TO FOLLOW. Drill Sharpener: Kaur Nesbitt DCP- Discharge Planning Updated by [email or web address]: Vika Rios on 06/13/19 1:[address] Patient Name: ESTHER ROWE Admission Status: Elective Accout number: [id number] Admission Date: 06-09-2019 : 1950 Admission Diagnosis: Attending: HERB DIAZ Current LOS: 4 Anticipated DC Date: Planned Disposition: Home Primary Insurance: MEDICARE A & B Discharge Planning Comments: CM met with patient at bedside after explaining CM role and obtaining verbal consent. Patient lives at home with his Tatiana where he is independent with his care and plans to return there upon discharge. Patient feels this would be a safe discharge. CM discussed availability / needs of home health and medical equipment. Patient states he has Nebulizer and pulmonary vest with [facility]. Patient denies any discharge needs at this time. Patient states he will have his family drive him home upon discharge. CM will continue to follow and assist as needed with discharge planning / needs. Drill Sharpener: Vika Rios DCPIA - Discharge Planning Initial Assessment Updated by [id number]: Vika Rios on 06/13/19 2:49 pm * Is the patient Alert and Oriented? Yes * How many steps to enter\exit or inside your home? * PCP MORGAN Vicente * Pharmacy [facility] [place] * Preadmission Environment Home with Family * ADLs Independent * Equipment Nebulizer * Other Equipment percussion vest, * List name and contact numbers for known caregivers / representatives who currently or will assist patient after discharge: TATIANA ROWE - SPOUSE - [phone] * Verbal permission to speak to the caregivers and representatives has been obtained from the patient. Yes * Community resources currently utilized None * Additional services required to return to the preadmission environment? No * Can the patient safely return to the preadmission environment? Yes * Has this patient been hospitalized within the prior 30 days at any hospital? No External Providers External Provider: [facility] Mechelle Contact Date: Service Request Date: Service Type: Resolution: Reviewer: Comments: Last DP export: 06/13/19 2:02 p Patient Name: ESTHER ROWE Page [id number] at 1441 All edits/amendments must be made on the electronic document DICTATION DATE: 06/15/191440 PHOTO FINISHER: FILIBERTO 06/15/191440 RPT#: [id number] DC DATE: STATUS: ADM IN [facility] [address] [place] [address] END OF REPORT
[2019-06-15 15:00] VITALS: BP 138/83
[2019-06-15] MEDS ORDERED: LEVOFLOXACIN500 MG PO (15:59)
--- NOTE | 2019-06-15 16:30 | NUR ---
PT HAS DISCHARGE ORDERS PER DR MIRANDA AND DR DELAROSA. WILL CONTINUE TO MONITOR
--- NOTE | 2019-06-15 18:00 | NUR ---
PT GIVEN DISCHARGE INSTRUCTIONS AND PT SIGNED DISCHARGE PAPERWORK.
--- NOTE | 2019-06-15 18:28 | NUR ---
PT WHEELED OFF UNIT IN WHEELCHAIR
--- NOTE | 2019-06-16 09:25 | MORECARE ---
CASE MANAGEMENT DISCHARGE SUMMARY PATIENT: ESTHER ROWE UNIT: [id number] ADM DATE: 06/09/19 AGE: 69 : 51 SEX: M ROOM/BED: D.1208 AUTHOR: ALTONDOC PHYSICIAN: REFERRING PHYSICIAN: HERB DIAZ MD DATE OF SERVICE: 06/16/19 Discharge Plan Patient Name: ESTHER ROWE Facility: [facility]:[place] : 1950 Planned Disposition: Home Anticipated Discharge Date: Discharge Date: 06/15/2019 Expected LOS: Initial Reviewer: [email or web address] Initial Review Date: 06/13/2019 Generated: 06/16/19 10:25 am Comments DCP- Discharge Planning Updated by [email or web address]: Kaur Nesbitt on 06/15/19 1:[address] Patient Name: ESTHER ROWE Admission Status: Elective Accout number: [id number] Admission Date: 06-09-2019 : 1950 Admission Diagnosis: Attending: HERB DIAZ Current LOS: 6 Anticipated DC Date: Planned Disposition: Home Primary Insurance: MEDICARE A & B Discharge Planning Comments: WALK TEST AND DOCUMENTS SENT TO [facility]. THEY WILL DELIVER HIS OXYGEN. CM TO FOLLOW. Bulb Planter: Kaur Nesbitt DCP- Discharge Planning Updated by [email or web address]: Vika Rios on 06/13/19 1:[address] Patient Name: ESTHER ROWE Admission Status: Elective Accout number: [id number] Admission Date: 06-09-2019 : 1950 Admission Diagnosis: Attending: HERB DIAZ Current LOS: 4 Anticipated DC Date: Planned Disposition: Home Primary Insurance: MEDICARE A & B Discharge Planning Comments: CM met with patient at bedside after explaining CM role and obtaining verbal consent. Patient lives at home with his Tatiana where he is independent with his care and plans to return there upon discharge. Patient feels this would be a safe discharge. CM discussed availability / needs of home health and medical equipment. Patient states he has Nebulizer and pulmonary vest with [facility]. Patient denies any discharge needs at this time. Patient states he will have his family drive him home upon discharge. CM will continue to follow and assist as needed with discharge planning / needs. Bulb Planter: Vika Rios DCPIA - Discharge Planning Initial Assessment Updated by [email or web address]: Vika Rios on 06/13/19 2:49 pm * Is the patient Alert and Oriented? Yes * How many steps to enter\exit or inside your home? * PCP MORGAN Vicente * Pharmacy [facility] [place] * Preadmission Environment Home with Family * ADLs Independent * Equipment Nebulizer * Other Equipment percussion vest, * List name and contact numbers for known caregivers / representatives who currently or will assist patient after discharge: TATIANA ROWE - SPOUSE - [phone] * Verbal permission to speak to the caregivers and representatives has been obtained from the patient. Yes * Community resources currently utilized None * Additional services required to return to the preadmission environment? No * Can the patient safely return to the preadmission environment? Yes * Has this patient been hospitalized within the prior 30 days at any hospital? No Last DP export: 06/15/19 1:41 Patient Name: ESTHER ROWE Page 52192 at 0925 All edits/amendments must be made on the electronic document DICTATION DATE: 06/16/19924 PLUMBING CONTRACTOR: FILIBERTO 06/16/19924 RPT#: [id number] DC DATE:06/15/19 STATUS: DIS IN [facility] [address] [place] [address] END OF REPORT
== END 2019-06-15 18:15 | disposition home or self-care (01) | DRG 190 ==
LOC: D.OPS 06:32 → D.M3 15:21
PROVIDERS: Internal Medicine Pulmonary Disease; ADMIT Internal Medicine Pulmonary Disease; ATTEND Internal Medicine Nephrology
PROC: 0B9B8ZZ Drainage of Left Lower Lobe Bronchus, Via Natural or Artificial Opening Endoscopic (ICD-10-PCS; principal; 2019-06-09 08:30)
DX: J47.0 Bronchiectasis with acute lower respiratory infection (principal); E43 Unspecified severe protein-calorie malnutrition; E87.1 Hypo-osmolality and hyponatremia; Z68.1 Body mass index [BMI] 19.9 or less, adult; J47.1 Bronchiectasis with (acute) exacerbation; J15.6 Pneumonia due to other Gram-negative bacteria; A31.0 Pulmonary mycobacterial infection; I25.10 Atherosclerotic heart disease of native coronary artery without angina pectoris; E78.5 Hyperlipidemia, unspecified; F41.8 Other specified anxiety disorders; J43.9 Emphysema, unspecified; D50.9 Iron deficiency anemia, unspecified

== ENCOUNTER 2019-07-14 08:51 | Outpatient (CLI) | payer MEDICARE, OTHER ==
[~2019-07-14] VITALS: Ht 175.3 cm; Wt 48.2 kg
[~2019-07-14 08:51] MED LIST changes: +LEVOFLOXACIN500 MG PO
[2019-07-14 09:27] LABS: BASOPHILS 0.4 % (0-2); EOSINOPHILS 2.8 % (0-7); HEMATOCRIT 36.3 % (42.0-54.0); HEMOGLOBIN 11.8 g/dL (13.5-17.5); IMMATURE GRANULOCYTES 0.2 % (0-5); LYMPHOCYTES 9.3 % (15-50); MCH 29.5 pg (26.0-34.0); MCHC 32.5 g/dL (31.0-37.0); MCV 90.8 fL (80.0-100.0); MEAN PLATELET VOLUME 8.3 fL (7.4-10.4); MONOCYTES 10.5 % (2-11); NEUTROPHILS 76.8 % (40-80); RDW 15.6 % (11.5-14.5); WBC 5.1 10x3/uL (4.8-10.8)
[2019-07-14 09:30] LABS: CALC OSMOLALITY 265 mosm/kg (275-300); CALCIUM 9.5 mg/dL (8.5-10.1); CARBON DIOXIDE 29.2 mmol/L (21.0-32.0); CHLORIDE - SERUM 99 mmol/L (98-107); CREATININE - SERUM 0.8 mg/dL (0.6-1.3); GLUCOSE 94 mg/dL (74-106); POTASSIUM - SERUM 4.7 mmol/L (3.5-5.1); SODIUM 134 mmol/L (136-145); UREA NITROGEN 8 mg/dL (7-18); eGFR NON AFRICAN AMERICAN > 90 mL/min (90-120)
[2019-07-14 09:35] LABS: PLATELET COUNT 377 10x3/uL (130-400)
[2019-07-14 09:45] LABS: INR 1.04 (0.85-1.17); PROTIME 13.5 SECONDS (11.6-15.0)
[2019-07-14] MEDS ORDERED: ATIVAN1 MG PO (10:04)
[2019-07-14] MEDS ORDERED: EFUDEX 5 % CREA40 GM TOPICAL (10:05)
[2019-07-14 10:12] VITALS: BP 109/71; Ht 175.3 cm; Wt 48.2 kg
--- NOTE | 2019-07-14 13:59 | NUR ---
1400 PCXR DONE TOLERATED WELL
--- NOTE | 2019-07-14 16:03 | NUR ---
1248 XRAY REPORT NOTED PT GIVEN FINGER FOOD TRAY. INSTRUCTIONS GIVEN
== END 2019-07-14 15:50 | disposition home or self-care (01) ==
LOC: D.SP 08:51 → D.CT 11:00 → D.SP 11:00
PROVIDERS: Radiology Diagnostic Radiology; ATTEND Internal Medicine Pulmonary Disease
DX: R91.8 Other nonspecific abnormal finding of lung field (principal)

== ENCOUNTER → 2019-09-26 11:03 | Outpatient (CLI) | payer MEDICARE, OTHER ==
[~2019-09-26 11:03] MED LIST changes: +ATIVAN1 MG PO; +EFUDEX 5 % CREA40 GM TOPICAL
== END | disposition home or self-care (01) ==
LOC: D.CT 11:03
PROVIDERS: ATTEND Internal Medicine Pulmonary Disease
DX: J44.9 Chronic obstructive pulmonary disease, unspecified (principal)

== ENCOUNTER → 2019-10-12 16:27 | Outpatient (CLI) | payer MEDICARE, OTHER ==
[2019-10-12 17:26] LABS: BASOPHILS 0.2 % (0-2); EOSINOPHILS 2.3 % (0-7); HEMATOCRIT 40.9 % (42.0-54.0); HEMOGLOBIN 13.4 g/dL (13.5-17.5); IMMATURE GRANULOCYTES 0.2 % (0-5); LYMPHOCYTES 10.1 % (15-50); MCH 31.8 pg (26.0-34.0); MCHC 32.8 g/dL (31.0-37.0); MCV 97.1 fL (80.0-100.0); MEAN PLATELET VOLUME 9.6 fL (7.4-10.4); MONOCYTES 9.7 % (2-11); NEUTROPHILS 77.5 % (40-80); RBC 4.21 10x6/uL (4.20-6.10); RDW 14.1 % (11.5-14.5); WBC 4.3 10x3/uL (4.8-10.8)
[2019-10-12 17:40] LABS: ALBUMIN 3.4 g/dL (3.4-5.0); BILIRUBIN - DIRECT 0.2 mg/dL (0.00-0.30); BILIRUBIN - INDIRECT 0.46 mg/dL (0.00-1.00); BILIRUBIN - TOTAL 0.66 mg/dL (0.2-1.3); PROTEIN - SERUM 8.2 g/dL (6.4-8.2)
[2019-10-12 18:38] LABS: PLATELET COUNT 292 10x3/uL (130-400)
== END | disposition home or self-care (01) ==
LOC: D.LABREF 16:27
PROVIDERS: ATTEND Internal Medicine Pulmonary Disease
DX: A31.0 Pulmonary mycobacterial infection (principal)

== ENCOUNTER → 2019-11-26 13:05 | Outpatient (CLI) | payer MEDICARE, OTHER | END | disposition home or self-care (01) | LOC: D.LABREF 13:05 | PROVIDERS: ATTEND Internal Medicine Pulmonary Disease | DX: R06.02 Shortness of breath (principal) ==

== ENCOUNTER → 2019-11-28 09:31 | Outpatient (CLI) | payer MEDICARE, OTHER | END | disposition home or self-care (01) | LOC: D.RT 09:31 | PROVIDERS: ATTEND Internal Medicine Pulmonary Disease | DX: J44.9 Chronic obstructive pulmonary disease, unspecified (principal) ==

== ENCOUNTER 2019-12-16 14:49 | Inpatient (IN) | payer MEDICARE, OTHER ==
[~2019-12-16] VITALS: Ht 175.3 cm; Wt 55.0 kg
[2019-12-16 15:22] LABS: BASOPHILS 0.2 % (0-2); EOSINOPHILS 0.6 % (0-7); HEMATOCRIT 34.5 % (42.0-54.0); HEMOGLOBIN 11.6 g/dL (13.5-17.5); IMMATURE GRANULOCYTES 0.4 % (0-5); LYMPHOCYTES 6.5 % (15-50); MCH 32.1 pg (26.0-34.0); MCHC 33.6 g/dL (31.0-37.0); MCV 95.6 fL (80.0-100.0); MEAN PLATELET VOLUME 8.7 fL (7.4-10.4); MONOCYTES 10.6 % (2-11); NEUTROPHILS 81.7 % (40-80); PLATELET COUNT 262 10x3/uL (130-400); RBC 3.61 10x6/uL (4.20-6.10); WBC 5.4 10x3/uL (4.8-10.8)
[2019-12-16 15:32] LABS: CALC OSMOLALITY 252 mosm/kg (275-300); CALCIUM 8.6 mg/dL (8.5-10.1); CARBON DIOXIDE 24.4 mmol/L (21.0-32.0); CHLORIDE - SERUM 96 mmol/L (98-107); CREATININE - SERUM 1.1 mg/dL (0.6-1.3); GLUCOSE 89 mg/dL (74-106); INR 1.04 (0.85-1.17); POTASSIUM - SERUM 4.6 mmol/L (3.5-5.1); PROTIME 13.6 SECONDS (11.6-15.0); SODIUM 127 mmol/L (136-145); UREA NITROGEN 9 mg/dL (7-18); eGFR NON AFRICAN AMERICAN 71 mL/min (90-120)
[2019-12-16 15:33] LABS: APTT 35.9 SECONDS (22.8-39.4)
[2019-12-16 15:39] VITALS: BP 106/693
[2019-12-16 15:48] LABS: ALBUMIN 2.6 g/dL (3.4-5.0); ALKALINE PHOSPHATASE 75 U/L (30-120); ALT (SGPT) 17 U/L (10-68); BILIRUBIN - TOTAL 0.64 mg/dL (0.2-1.3); CKMB 1.5 U/L (0.0-3.6); CREATINE KINASE 28 UL (21-232); PRO BNP 208 pg/mL (0-125); PROTEIN - SERUM 7.3 g/dL (6.4-8.2); TROPONIN-I < 0.017 ng/mL (0.000-0.060)
[2019-12-16] MEDS ORDERED: ALBUTEROL2.5 MG/3 M INH (18:28)
[2019-12-16] MEDS ORDERED: POTASSIUM99 M1 PO (18:29)
[2019-12-16] MEDS ORDERED: FISH OIL PO (18:30)
[2019-12-16] MEDS ORDERED: SYMBICORT 16010.2 GM INH (18:31)
[2019-12-16] MEDS ORDERED: CLOFAZIMINE PO (18:33)
[2019-12-16] MEDS ORDERED: CALCIUM PO (18:35)
[2019-12-16] MEDS ORDERED: TESSALON PERLE100 MG PO (18:36)
[2019-12-16] MEDS ORDERED: PEPCID AC20 MG PO (18:38)
--- NOTE | 2019-12-16 20:05 | NUR ---
IV TO LFA BURNING AND UNCOMFORTABLE TO PATIENT. REMOVED IV. RESITED 20 TO RFA X 1 ATTEMPT AND RESTARTED IVF AND FINISHING CURRENT ABT.
--- NOTE | 2019-12-16 20:12 | NUR ---
REPORT AND INITIAL ROUNDS COMPLETED. PT RESTING WITH NO DISTRESS. CPOC.
[2019-12-16 20:36] LABS: % SATURATION 15 % (15-55); IRON 26 ug/dl (35-150); TOTAL IRON BIND CAPACITY 167 ug/dl (260-445); UNSAT IRON BIND CAPACITY 141 ug/dl (150-375)
[2019-12-16 20:40] VITALS: BP 109/76
--- NOTE | 2019-12-16 21:15 | NUR ---
PT SEEN BY KIMANI VELASQUEZ.
--- NOTE | 2019-12-16 21:43 | NUR ---
MARIELLE MCMAHAN. SHE WILL REVIEW MEDS AND PT'S REQUEST FOR HOME MED OF ATIVAN.
--- NOTE | 2019-12-16 21:45 | NUR ---
MULTIPLE NEW ORDERS PER DR MIRANDA. HAD TO RESITE NEW IV BEFORE ALL THE NEW IV MEDS COULD BE STARTED.
--- NOTE | 2019-12-16 21:46 | NUR ---
CHECKED IV COMPATIBILITY AND VANCOMYCIN AND MERREM CAN BE Y-SITED AND ADMINISTERED SIMULTANEOUSLY.
[2019-12-17] VITALS (7 sets, daily range): BP systolic 83–111; BP diastolic 50–75; Ht 175.3 cm; Wt 55.0 kg
[2019-12-17 05:00] LABS: BASOPHILS 0.3 % (0-2); EOSINOPHILS 0 % (0-7); HEMATOCRIT 30.6 % (42.0-54.0); HEMOGLOBIN 10.3 g/dL (13.5-17.5); LYMPHOCYTES 12.2 % (15-50); MCH 31.8 pg (26.0-34.0); MCHC 33.7 g/dL (31.0-37.0); MCV 94.4 fL (80.0-100.0); MEAN PLATELET VOLUME 8.9 fL (7.4-10.4); MONOCYTES 12.5 % (2-11); PLATELET COUNT 268 10x3/uL (130-400); RBC 3.24 10x6/uL (4.20-6.10); RDW 12.9 % (11.5-14.5)
[2019-12-17 05:27] LABS: ALBUMIN 2.1 g/dL (3.4-5.0); ANION GAP 7.7 mmol/L (8-16); BILIRUBIN - TOTAL 0.16 mg/dL (0.2-1.3); CALCIUM 8.6 mg/dL (8.5-10.1); CREATININE - SERUM 1.1 mg/dL (0.6-1.3); MAGNESIUM - SERUM 2.1 mg/dL (1.8-2.4); POTASSIUM - SERUM 4.7 mmol/L (3.5-5.1); PRE-ALBUMIN 10.5 mg/dL (18.0-35.7); PROTEIN - SERUM 6.4 g/dL (6.4-8.2)
--- NOTE | 2019-12-17 08:06 | NUR ---
PT AWAKE AND OREITNED, LYING IN BED WATCHING TELIVISION. STATES HE'S HARD OF HEARING SO WE NEED TO SPEAK UP MORE. WILL OBLIGE. NO COMPLAINTS OR CONCERNS AT THIS TIME. CL INR EACH, SRX2, NO FAMILY AT BEDSIDE.
--- NOTE | 2019-12-17 14:42 | NUR ---
I have reviewed this patient and I concur with the Shift Assessment completed by the Licensed Practical Nurse today this shift.
--- NOTE | 2019-12-17 20:00 | NUR ---
REPORT RECIEVED AND INITIAL ROUNDS COMPLETED. PT ALERT/ORIENTED. BREATHING MORE AT EASE TODAY. IV TO RFA WITH NS @ 75ML/HR INFUSING. SR PER TELEMETRY. BIPAP IN ROOM TO BE USED AT BEDTIME. CPOC.
[2019-12-18] VITALS: BP 116/62
--- NOTE | 2019-12-18 03:15 | NUR ---
RESTING IN BED WITH EYES CLOSED. NONLABORED RESPIRATIONS. IVF INFUSING. IV ABT NOW UP AND INFUSING (MERREM OVER 3 HOURS). CALL LIGHT IN REACH. SR PER TELEMETRY.
[2019-12-18 04:00] VITALS: BP 110/62
[2019-12-18 05:15] LABS: BASOPHILS 0.6 % (0-2); EOSINOPHILS 0.3 % (0-7); HEMOGLOBIN 10.9 g/dL (13.5-17.5); IMMATURE GRANULOCYTES 0.3 % (0-5); LYMPHOCYTES 13.6 % (15-50); MCH 31.5 pg (26.0-34.0); MCV 95.4 fL (80.0-100.0); MEAN PLATELET VOLUME 9.4 fL (7.4-10.4); MONOCYTES 10.4 % (2-11); NEUTROPHILS 74.8 % (40-80); PLATELET COUNT 311 10x3/uL (130-400); RBC 3.46 10x6/uL (4.20-6.10); RDW 13.3 % (11.5-14.5); WBC 3.2 10x3/uL (4.8-10.8)
[2019-12-18 05:46] LABS: ALBUMIN 2.5 g/dL (3.4-5.0); ANION GAP 8.5 mmol/L (8-16); BILIRUBIN - TOTAL 0.18 mg/dL (0.2-1.3); CALCIUM 8.5 mg/dL (8.5-10.1); CARBON DIOXIDE 24.7 mmol/L (21.0-32.0); CREATININE - SERUM 1.1 mg/dL (0.6-1.3); MAGNESIUM - SERUM 2.1 mg/dL (1.8-2.4); POTASSIUM - SERUM 4.2 mmol/L (3.5-5.1); PROTEIN - SERUM 6.9 g/dL (6.4-8.2); VANCOMYCIN - TROUGH 12.3 ug/mL (10.0-20.0)
--- NOTE | 2019-12-18 07:30 | NUR ---
PT AWAKE ANDO REITNED, LYING IN BED RECIEIVING BREATHING TX. NO COMPLAINTS OR CONCERNS AT THIS TIME. HOPEFUL TO GO HOME TODAY IF POSSIBLE. CL IN REACH, SRX2,
--- NOTE | 2019-12-18 09:15 | NUR ---
PT AWAKE AND ORIENTED, SITTING UP IN BED. TOOK MEDICAITONS WITHOUT OCMPLICATIONS. REQUESTS A SHOWER LATER TODAY. WILL ASSIST. NO COMPLAINTS OR CONCERNS AT THIS ITME. CL IN REACH, SRX2.
[2019-12-18 09:39] VITALS: BP 118/71
--- NOTE | 2019-12-18 11:05 | NUR ---
I have reviewed this patient and I concur with the Shift Assessment completed by the Licensed Practical Nurse today this shift.
[2019-12-18 12:11] VITALS: BP 107/75
--- NOTE | 2019-12-18 13:41 | NUR ---
PT AWAKE AND ORIENTED LYING IN BED. NO COMPLAINTS OR CONCERNS AT THIS TIME. CL INR EACH, SRX2.
[2019-12-18 16:18] VITALS: BP 110/63
--- NOTE | 2019-12-18 17:25 | NUR ---
PT AWAKE AND ORIENTED LYING IN BED, AT BEDSIDE. DR. MIRANDA ROUNDED. NO COMPLAINTS OR CONCERNS AT THIS TIME, STORNG DESIRE TO GO HOME SOON POSSIBLE. ALL QUESTIONS ANSWERED TO THE BEST OF MY ABILITY. CL IN REACH, SRX2.
--- NOTE | 2019-12-18 20:00 | NUR ---
REPORT AND INITIAL ROUNDS COMPLETED. PT COMPLETED A WALK AROUND THE HALLWAY DURING THE TIME SHIFT CHANGE WAS OCCURRING WITH HIS WALKING WITH HIM. BACK IN BED WITH NONLABORED RESPIRATIONS. SR PER TELEMETRY. NS @ 75ML/HR INFUSING TO RFA. SPOKE WITH RT ABOUT RECIEVING MESSAGE FROM DAY NURSE THAT PT NEEDED TO BE ON BIPAP AT BEDTIME. CPOC.
[2019-12-18 20:54] VITALS: BP 125/48
[2019-12-19 04:00] VITALS: BP 108/44
--- NOTE | 2019-12-19 05:32 | NUR ---
PT HAS SLEPT WELL THIS NIGHT WITH HIS BIPAP IN PLACE. IVF INFUSING. IV ABT'S PER ORDER. SR PER TELEMETRY. CALL LIGHT IN REACH. CPOC.
[2019-12-19 07:12] LABS: BASOPHILS 0.3 % (0-2); EOSINOPHILS 0 % (0-7); HEMATOCRIT 34.8 % (42.0-54.0); HEMOGLOBIN 11.5 g/dL (13.5-17.5); IMMATURE GRANULOCYTES 0.3 % (0-5); LYMPHOCYTES 15.1 % (15-50); MCH 31.8 pg (26.0-34.0); MCV 96.1 fL (80.0-100.0); MEAN PLATELET VOLUME 9.1 fL (7.4-10.4); MONOCYTES 11.6 % (2-11); NEUTROPHILS 72.7 % (40-80); PLATELET COUNT 328 10x3/uL (130-400); RBC 3.62 10x6/uL (4.20-6.10); RDW 13.4 % (11.5-14.5)
[2019-12-19 07:16] LABS: ALBUMIN 2.3 g/dL (3.4-5.0); ANION GAP 10.6 mmol/L (8-16); BILIRUBIN - TOTAL 0.19 mg/dL (0.2-1.3); CARBON DIOXIDE 24.7 mmol/L (21.0-32.0); CREATININE - SERUM 1.1 mg/dL (0.6-1.3); MAGNESIUM - SERUM 2.2 mg/dL (1.8-2.4); POTASSIUM - SERUM 4.3 mmol/L (3.5-5.1)
--- NOTE | 2019-12-19 09:48 | NUR ---
DR. SHEPARD STATES PT IS CLEAR TO D/C FROM PULINOLOGY STANDPOINT.
[2019-12-19] MEDS ORDERED: PREDNISONE10 MG PO (10:53)
--- NOTE | 2019-12-19 13:07 | NUR ---
PT ESCORTRED OUT VIA WHEELCHAIR TO POV.
--- NOTE | 2019-12-19 18:47 | MORECARE ---
CASE MANAGEMENT DISCHARGE SUMMARY PATIENT: ESTHER ROWE UNIT: [id number] ADM DATE: 12/16/19 AGE: 69 : 51 SEX: M ROOM/BED: D.4106 AUTHOR: ADAMA DANG PHYSICIAN: REFERRING PHYSICIAN: ANTOINE BRAUN MD DATE OF SERVICE: 12/19/19 Discharge Plan Patient Name: ESTHER ROWE Facility: [facility]:[place] : 1950 Planned Disposition: Home Anticipated Discharge Date: Discharge Date: 12/19/2019 Expected LOS: Initial Reviewer: [email or web address] Initial Review Date: 12/16/2019 Generated: 12/19/19 7:47 pm Comments DCP- Discharge Planning Updated by [email or web address]: Teresa Bravo on 12/19/19 5:[address] Patient Name: ESTHER ROWE Admission Status: Elective Accout number: [id number] Admission Date: 12-16-2019 : 1950 Admission Diagnosis: Attending: ANTOINE BRAUN Current LOS: 3 Anticipated DC Date: Planned Disposition: Home Primary Insurance: MEDICARE A & B Discharge Planning Comments: CM met with patient to complete initial dc planning assessment. CM educated patient on the CM role and verbal consent given by patient to complete assessment. CM verified patient's address, phone number, and emergency contact phone numbers. Patient lives at home with his ; she is currently at bedside. At discharge patient plans to return home and feels this is a safe discharge. CM discussed availability of home health, rehab services, and medical equipment. Patient denied known discharge needs at this time. Transportation provider at discharge will be his . Pt has a cane at bedside. At home he has a CPAP and oxygen if needed with nebulizers. ROBERT signed to resume [employer]. Declination signed for HH, and rehab. DC IMM delivered, explained, signed by the patient, and placed in chart. Signed form also left with the patient. CM will continue to follow and will assist as needed with dc plans/needs. Sales Support Coordinator: Teresa Bravo MSN,RN,CM DCPIA - Discharge Planning Initial Assessment Updated by [email or web address]: Teresa Bravo on 12/19/19 6:41 pm * Is the patient Alert and Oriented? Yes * How many steps to enter\exit or inside your home? 3/0 * PCP wallace * Pharmacy [facility] * Preadmission Environment Home with Family * ADLs Independent * Equipment BIPAP Cane Oxygen * Community resources currently utilized None * Additional services required to return to the preadmission environment? Yes * Can the patient safely return to the preadmission environment? Yes * Has this patient been hospitalized within the prior 30 days at any hospital? No Coverage Notice Reviewer: [email or web address] Bravo Notice Issued Date-Time: 12/19/2019 12:00 Notice Type: IM Discharge Notice Notice Delivered To: Patient Relationship to Patient: Grain Manager Name: Delivery Method: HAND - Hand Delivered Di Days: Prior Verbal Notification: Recipient Understood Notice: Yes Recipient Signature: Yes Med Rec Note Co-signed by Attending: Coverage Notice Comment: DC IMM delivered, explained, signed by the patient, and placed in chart. Signed form also left with the patient. Reviewer: [email or web address] Bravo Notice Issued Date-Time: 12/19/2019 12:00 Notice Type: Patient Choice Letter Notice Delivered To: Patient Relationship to Patient: Grain Manager Name: Delivery Method: HAND - Hand Delivered Di Days: Prior Verbal Notification: Recipient Understood Notice: Yes Recipient Signature: Yes Med Rec Note Co-signed by Attending: Coverage Notice Comment: robert signed to resume [facility]. declination signed for hh/ip rehab Patient Name: ETSHER ROWE Page 57166 at 1847 All edits/amendments must be made on the electronic document DICTATION DATE: 12/19/191846 BURNISHING MACHINE OPERATOR: FILIBERTO 12/19/191846 RPT#: [id number] DC DATE:12/19/19 STATUS: DIS IN [facility] [address] [place] [address] END OF REPORT
--- NOTE | 2019-12-20 15:03 | EC ---
PATIENT:ESTHER ROWE DATE OF SERVICE: 12/16/19 SEX: M MEDICAL RECORD: [id number] DATE OF : [birth year] LOCATION:D.M2 D.212 AGE OF PATIENT: 69 ADMISSION DATE: 12/16/19 REFERRING PHYSICIAN: INTERPRETING PHYSICIAN: SPENCER ROSEN MD ECHOCARDIOGRAM REPORT ECHO CHARGES 4 ECHO COMPLETE Date: 12/17/19 CLINICAL DIAGNOSIS: SOB HX CAD/COPD ECHOCARDIOGRAPHIC MEASUREMENTS (adult normal given) AC root (d.<3.7cm) 3.3 cm LV Septum d (<1.2 cm> 1.0 cm Valve Excursion 1.5 cm LV Septum (systole) 1.2 cm Left Atria (s.<4.0cm> 3.9 cm LVPW d(<1.2cm) 1.1 cm RV (d.<2.3cm) 4.2 cm LVPW (sytole) 1.3 cm LV diastole(<5.6CM) 5.2 cm MV E-F(>70mm/sec) cm LV systole 3.7 cm LVOT Diameter 2.0 cm MV exc.(>10mm) 1.6 cm Est.ejection fraction (50-75%) % DOPPLER: LVIT cm/sec A 89.0 cm/sec E 69.0 cm/sec LA cm/sec RVSP 35 mmHg LVOT 94 cm/sec AOP1/2T m/s Asc. Ao 135 cm/sec RVOT 82 cm/sec RA cm/sec PA 92 cm/sec AV Gradient Peak 7.32 mmHg AV Mean 3.96 mmHg AV Area 2.5 cm MV Gradient Peak 3.17 mmHg MV Mean 1.29 mmHg MV Area cm COMMENTS: Meter Engineer: 2 RYLIE CONRAD Chief Security Officer: 3 Dr. Rivera TAPE# PACS Pericardial Effusion N DATE OF SERVICE: Adequate 2D, color flow imaging, spectral Doppler, and M-Mode. No LVH. LV internal dimension is normal. Wall motion is normal. EF is greater that or equal to 55%. Aortic valve is tricuspid. No evidence of stenosis by Doppler interrogation. Left atrium normal at 3.9 cm. Mitral valve shows no prolapse. Mild MR. Right-sided chambers are grossly normal. Mild TR. TRANSINT:[id number] Voice Confirmation ID: [id number] DOCUMENT ID: [id number] ECHOCARDIOGRAM REPORT [id number] ESTHER ROWE GREGORY A MD at 1503 CC: [id number] DICTATION DATE: 12/18/19 1006 LIFE SKILLS TRAINER: 12/18/19 1351 DIS IN 12/19/19 [place] [id number] [place] [id number]
== END 2019-12-19 13:07 | disposition home or self-care (01) | DRG 178 ==
LOC: D.ER 14:49 → D.M2 16:50
PROVIDERS: Family Medicine; Internal Medicine Pulmonary Disease; ADMIT Family Medicine; ATTEND Family Medicine
DX: A31.0 Pulmonary mycobacterial infection (principal); J47.1 Bronchiectasis with (acute) exacerbation; E87.1 Hypo-osmolality and hyponatremia; E44.0 Moderate protein-calorie malnutrition; Z68.1 Body mass index [BMI] 19.9 or less, adult; J47.0 Bronchiectasis with acute lower respiratory infection; F41.8 Other specified anxiety disorders; E78.5 Hyperlipidemia, unspecified; I25.10 Atherosclerotic heart disease of native coronary artery without angina pectoris; K21.9 Gastro-esophageal reflux disease without esophagitis; J18.9 Pneumonia, unspecified organism; J30.9 Allergic rhinitis, unspecified; D50.9 Iron deficiency anemia, unspecified; R19.7 Diarrhea, unspecified; Z87.891 Personal history of nicotine dependence; M19.90 Unspecified osteoarthritis, unspecified site; G47.33 Obstructive sleep apnea (adult) (pediatric)

== ENCOUNTER 2020-02-24 21:51 | Inpatient (IN) | payer MEDICARE, OTHER ==
[~2020-02-24] VITALS: Ht 175.3 cm; Wt 51.5 kg
[~2020-02-24 21:51] MED LIST changes: +CALCIUM PO; +CLOFAZIMINE PO; +FISH OIL PO; +PEPCID AC20 MG PO; +POTASSIUM99 M1 PO; +PREDNISONE10 MG PO; +SYMBICORT 16010.2 GM INH
[2020-02-24 22:06] LABS: BASOPHILS 0.5 % (0-2); HEMATOCRIT 32.8 % (42.0-54.0); IMMATURE GRANULOCYTES 0.5 % (0-5); MCH 30.9 pg (26.0-34.0); MCHC 33.5 g/dL (31.0-37.0); MCV 92.1 fL (80.0-100.0); MEAN PLATELET VOLUME 8.2 fL (7.4-10.4); MONOCYTES 12.3 % (2-11); NEUTROPHILS 73.7 % (40-80); PLATELET COUNT 305 10x3/uL (130-400); RBC 3.56 10x6/uL (4.20-6.10); RDW 13.9 % (11.5-14.5); WBC 4.2 10x3/uL (4.8-10.8)
[2020-02-24 22:17] LABS: CALC OSMOLALITY 252 mosm/kg (275-300); CALCIUM 8.7 mg/dL (8.5-10.1); CARBON DIOXIDE 25.2 mmol/L (21.0-32.0); CHLORIDE - SERUM 96 mmol/L (98-107); CREATININE - SERUM 1.1 mg/dL (0.6-1.3); GLUCOSE 96 mg/dL (74-106); POTASSIUM - SERUM 4.1 mmol/L (3.5-5.1); SODIUM 127 mmol/L (136-145); UREA NITROGEN 8 mg/dL (7-18); eGFR NON AFRICAN AMERICAN 71 mL/min (90-120)
[2020-02-24 22:20] LABS: APTT 46.5 SECONDS (22.8-39.4); INR 1.14 (0.85-1.17); PROTIME 14.5 SECONDS (11.6-15.0)
[2020-02-24 22:21] LABS: D-DIMER-QUANTITATIVE 0.85 ug/mLFEU (0.20-0.54)
[2020-02-24 22:36] LABS: ALBUMIN 2.4 g/dL (3.4-5.0); ALKALINE PHOSPHATASE 78 U/L (30-120); ALT (SGPT) 10 U/L (10-68); BILIRUBIN - TOTAL 0.24 mg/dL (0.2-1.3); CKMB 1.1 U/L (0.0-3.6); CREATINE KINASE 42 UL (21-232); PRO BNP 190 pg/mL (0-125); PROTEIN - SERUM 7.3 g/dL (6.4-8.2); TROPONIN-I < 0.017 ng/mL (0.000-0.060)
--- NOTE | 2020-02-24 23:30 | NUR ---
PT GIVEN ICE WATER, DENIES ANY FURTHER NEEDS AT THIS TIME. CALL LIGHT WITHIN REACH. WILL CONTINUE TO MONITOR.
--- NOTE | 2020-02-25 00:20 | NUR ---
IV ABT MERREM UP AND INFUSING. PT RECEVIED IV LEVAQUIN IN ER. PT C/O HEADACHE. TYLENOL GIVEN WELL FIRST DOSES OF MUCINEX AND TESSELON. EXTRA BLANKET PROVIDED. CALL LIGHT IN REACH. CPOC.
--- NOTE | 2020-02-25 00:40 | NUR ---
ADMIT TO ROOM 2139 FROM ER. PT IS PUI AND PLACED IN ISOLATION. ALERT/ORIENTED AND AMBULATORY. O2 @ 2L/NC WITH DIMINISHED BREATH SOUNDS. ADMISSION ASSESSMENT AND HISTORY INITIATED. PIV TO RFA. PT VERY PHIL IN APPEARANCE. HOME MEDS REVIEWED. PLAN OF CARE INITIATED.
[2020-02-25 02:28] VITALS: BP 128/62; BMI 15.8
--- NOTE | 2020-02-25 03:57 | NUR ---
RESTING IN BED WITH EYES CLOSED. NO DISTRESS. SR PER TELEMETRY. CPOC. ISOLATION FOR PUI.
[2020-02-25 06:22] LABS: BASOPHILS 0.2 % (0-2); EOSINOPHILS 0.7 % (0-7); HEMOGLOBIN 9.8 g/dL (13.5-17.5); IMMATURE GRANULOCYTES 0.5 % (0-5); LYMPHOCYTES 10.8 % (15-50); MCH 30.8 pg (26.0-34.0); MCHC 33.8 g/dL (31.0-37.0); MCV 91.2 fL (80.0-100.0); MEAN PLATELET VOLUME 8.5 fL (7.4-10.4); MONOCYTES 11.8 % (2-11); PLATELET COUNT 314 10x3/uL (130-400); RBC 3.18 10x6/uL (4.20-6.10); WBC 4.2 10x3/uL (4.8-10.8)
--- NOTE | 2020-02-25 07:00 | NUR ---
RECEIVED REPORT. ASSUMED CARE OF PATIENT. CALL LIGHT WITHIN REACH. PATIENT REMAINS IN ISOLATION FOR PUI, AWAITING COVID RESULTS.
[2020-02-25 09:07] VITALS: BP 109/76
[2020-02-25 09:21] LABS: ALBUMIN 2.3 g/dL (3.4-5.0); ALKALINE PHOSPHATASE 73 U/L (30-120); BILIRUBIN - TOTAL 0.23 mg/dL (0.2-1.3); CALC OSMOLALITY 260 mosm/kg (275-300); CALCIUM 8.7 mg/dL (8.5-10.1); CARBON DIOXIDE 20.2 mmol/L (21.0-32.0); CHLORIDE - SERUM 98 mmol/L (98-107); GLUCOSE 108 mg/dL (74-106); PHOSPHOROUS 3.4 mg/dL (2.5-4.9); POTASSIUM - SERUM 4.4 mmol/L (3.5-5.1); PROTEIN - SERUM 7.1 g/dL (6.4-8.2); SODIUM 130 mmol/L (136-145); UREA NITROGEN 9 mg/dL (7-18); eGFR NON AFRICAN AMERICAN 79 mL/min (90-120)
[2020-02-25 09:24] LABS: ALT (SGPT) 14 U/L (10-68)
[2020-02-25 13:44] VITALS: BP 112/79
--- NOTE | 2020-02-25 14:54 | NUR ---
PATIENT TRANSFERRED TO ROOM 2108 FROM 2138 HE IS NOT COVID POSITIVE.
[2020-02-25 16:00] VITALS: BP 136/75
--- NOTE | 2020-02-25 19:26 | NUR ---
RECIEVED UP IN BED WITH EYES OPEN AND TV ON. ALERT AND ORIETNED X4. UP AD TEX TO B/R. O2@ 2 LITERS PER N/C IN PLACE. IV TO RT FA WITH NS AT [facility]. DENIES ANY NEEDS AT THIS TIME.
[2020-02-25 20:00] VITALS: BP 132/74
[2020-02-26] VITALS: BP 107/63
[2020-02-26 04:00] VITALS: BP 95/53
[2020-02-26 05:43] LABS: BASOPHILS 0.2 % (0-2); EOSINOPHILS 0.5 % (0-7); HEMATOCRIT 29.8 % (42.0-54.0); IMMATURE GRANULOCYTES 0.2 % (0-5); LYMPHOCYTES 7.5 % (15-50); MCH 30.4 pg (26.0-34.0); MCHC 33.6 g/dL (31.0-37.0); MCV 90.6 fL (80.0-100.0); MONOCYTES 13.1 % (2-11); NEUTROPHILS 78.5 % (40-80); PLATELET COUNT 271 10x3/uL (130-400); RBC 3.29 10x6/uL (4.20-6.10); RDW 13.8 % (11.5-14.5); WBC 4.3 10x3/uL (4.8-10.8)
[2020-02-26 06:01] LABS: CALC OSMOLALITY 250 mosm/kg (275-300); CALCIUM 8.6 mg/dL (8.5-10.1); CARBON DIOXIDE 22.6 mmol/L (21.0-32.0); CHLORIDE - SERUM 96 mmol/L (98-107); CREATININE - SERUM 0.8 mg/dL (0.6-1.3); GLUCOSE 97 mg/dL (74-106); MAGNESIUM - SERUM 1.9 mg/dL (1.8-2.4); PHOSPHOROUS 2.8 mg/dL (2.5-4.9); SODIUM 126 mmol/L (136-145); UREA NITROGEN 8 mg/dL (7-18); eGFR NON AFRICAN AMERICAN > 90 mL/min (90-120)
--- NOTE | 2020-02-26 07:15 | NUR ---
RECEIVE SHIFT REPORT. RESTING IN BED WITH TV ON. DENIES ANY NEEDS AT THIS TIME. WILL CONTINUE PLAN OF CARE AND SAFETY PRECAUTIONS.
[2020-02-26 08:00] VITALS: BP 100/54
--- NOTE | 2020-02-26 14:30 | NUR ---
FAMILY AT BEDSIDE CAME RUNNING OUT STATING PATIENT WAS HAVING A SEIZURE. SOB, BLANK FACIAL EXPRESSION, AND DIAPHORETIC. EPISODE LASTING ABOUT 40 SECONDS PER FAMILY MEMBER. CALLED PIPER HARMAN. WILL CONTINUE TO MONITOR.
[2020-02-26 16:00] VITALS: BP 92/53
--- NOTE | 2020-02-26 16:46 | NUR ---
FAMILY AT BEDSIDE STATES PATIENT HAD MORE SEIZURE LIKE ACTIVITY. SLEEPING WITH JERKING MOVEMENTS FOR AT LEAST 5 SECONDS. I DID NOT WITNESS. PATIENT TEARFUL AND STATES NOT FEELING WELL. CALLED PIPER HARMAN. DR. MIRANDA SAW HIM AND ORDERED A HEAD CT AND D/C ANTIBIOTICS. WILL CONTINUE TO MONITOR.
--- NOTE | 2020-02-26 17:09 | NUR ---
CALLED DR. LAW FOR CONSULT. HE ORDERED A MRI WITH AND WITHOUT CONTRAST TODAY AND AN EEG IN THE AM 02/27/20.
[2020-02-26 20:00] VITALS: BP 103/62
--- NOTE | 2020-02-26 22:11 | NUR ---
PT BACK FROM MRI AT 1915 HRS. DENIED ANY DISCOMFORT. ASSESSMENT COMPLETED AT 2024 HRS. VSS. SR PER CM HR 78. O2 2LNC. ALERT AND ORIENTED TO PERSON,PLACE AND TIME. ASCENCIO. IV TO RFA WITH IVAB INFUSING. LUNGS DIMINISHED IN BASES BILAT. PM MEDS GIVEN PER ORDERS. PT CURRENTLY WATCHING TV, NO DISTRESS NOTED. SR UP X1, CALL LIGHT WITHIN REACH.
--- NOTE | 2020-02-26 23:59 | NUR ---
PT RESTING WITH EYES CLOSED. RESP EVEN AND REGULAR. SR UP X1,CALL LIGHT WITHIN REACH AND BIPAP IN USE.
[2020-02-27] VITALS: BP 102/70
--- NOTE | 2020-02-27 02:20 | NUR ---
PT AWAKE; DENIES ANY DISCOMFORT. SR UP X1,CALL LIGHT WITHIN REACH.
--- NOTE | 2020-02-27 02:21 | NUR ---
FORTAZ UNAVAILABLE AT THIS TIME.
[2020-02-27 04:00] VITALS: BP 111/61
--- NOTE | 2020-02-27 04:44 | NUR ---
PT RESTING WITH EYES CLOSED. RESP EVEN AND REGULAR. BIPAP IN USE. SR UP X1, CALL LIGHT WITHIN REACH.
--- NOTE | 2020-02-27 06:07 | NUR ---
VSS THROUGHOUT NIGHT. SR PER CM. PT STATED HE RESTED WELL AFTER ATIVAN ADMINISTRATION. HAIR WASHED FOR AM EEG. NEEDS MET; WILL CONTINUE TO MONITOR.
[2020-02-27 06:22] LABS: BASOPHILS 0.7 % (0-2); EOSINOPHILS 0.7 % (0-7); HEMATOCRIT 29.5 % (42.0-54.0); HEMOGLOBIN 9.9 g/dL (13.5-17.5); IMMATURE GRANULOCYTES 0.3 % (0-5); LYMPHOCYTES 13.1 % (15-50); MCH 30.3 pg (26.0-34.0); MCHC 33.6 g/dL (31.0-37.0); MCV 90.2 fL (80.0-100.0); MEAN PLATELET VOLUME 8.6 fL (7.4-10.4); MONOCYTES 13.1 % (2-11); NEUTROPHILS 72.1 % (40-80); PLATELET COUNT 288 10x3/uL (130-400); RBC 3.27 10x6/uL (4.20-6.10); RDW 13.9 % (11.5-14.5)
--- NOTE | 2020-02-27 07:10 | NUR ---
RECEIVE BEDSIDE SHIFT REPORT. RESTING IN BED WITH TV ON. STATES HE IS FEELING MUCH BETTER THIS AM. WILL CONTINUE PLAN OF CARE AND SAFETY PRECAUTIONS.
[2020-02-27 07:24] LABS: CALC OSMOLALITY 256 mosm/kg (275-300); CALCIUM 8.3 mg/dL (8.5-10.1); CARBON DIOXIDE 21.9 mmol/L (21.0-32.0); CHLORIDE - SERUM 100 mmol/L (98-107); CREATININE - SERUM 0.9 mg/dL (0.6-1.3); GLUCOSE 94 mg/dL (74-106); MAGNESIUM - SERUM 2.1 mg/dL (1.8-2.4); PHOSPHOROUS 2.6 mg/dL (2.5-4.9); SODIUM 129 mmol/L (136-145); UREA NITROGEN 7 mg/dL (7-18); eGFR NON AFRICAN AMERICAN 89 mL/min (90-120)
[2020-02-27 08:55] LABS: BILIRUBIN NEGATIVE (NEGATIVE); KETONE MODERATE mg/dL (NEGATIVE); NITRITE NEGATIVE (NEGATIVE); UROBILINOGEN NORMAL (NORMAL)
[2020-02-27 08:56] LABS: BACTERIA FEW /hpf (NEGATIVE); EPITHELIAL CELLS RARE /hpf (0-5); RED CELLS - URINE OCC /hpf (0-5); WHITE CELLS - URINE NSEEN /hpf (NEGATIVE)
[2020-02-27 09:00] VITALS: BP 99/63
[2020-02-27 12:49] VITALS: BP 102/60
[2020-02-27 17:02] VITALS: BP 115/67
--- NOTE | 2020-02-27 19:15 | NUR ---
PT SITTING UP IN BED WATCHING TV. VSS. HE DENIES PAIN OR NEEDS. HE IS ALERT AND ORIENTED. HE IS ON 2L NC. O2 SAT 100%. BED LOW AND CALL LIGHT WITHIN REACH.
[2020-02-27 20:00] VITALS: BP 113/72
[2020-02-28] VITALS: BP 110/76
[2020-02-28 04:00] VITALS: BP 109/70
--- NOTE | 2020-02-28 07:00 | NUR ---
RECEIVED REPORT. ASSUMED CARE OF PATIENT. PATIENT SITTING UP IN BED WITH ATTENTION TOWARDS CELLPHONE. PATIENT DENIES NEEDS THIS AM. RESP EVEN AND UNLABORED. WHITE BOARD UPDATED, BEDSIDE SHIFT REPORT COMPLETE. NO DISTRESS.
--- NOTE | 2020-02-28 07:15 | NUR ---
REPORT RECEIVED, WILL CONT POC. PT A&O, UP IN BED WATCHING TV. NO S/S OF DISTRESS OBSERVED. PT REPORTS HAVING A GOOD DAY AND FEELING MUCH BETTER. RR EVEN AND UNLABORED ON 2L OF O2 VIA NC. PT REQUESTED COFFEE, BROUGHT TO BEDSIDE. PT DENIES NEEDS AT THIS TIME. CALL LIGHT IN REACH, BED LOCKED AND LOWERED. WILL CONT TO MONITOR. ASSESSMENT COMPLETED AT THIS TIME.
[2020-02-28 08:46] LABS: BASOPHILS 0.3 % (0-2); EOSINOPHILS 1.3 % (0-7); HEMATOCRIT 33.7 % (42.0-54.0); HEMOGLOBIN 11.1 g/dL (13.5-17.5); LYMPHOCYTES 8.3 % (15-50); MCH 30.2 pg (26.0-34.0); MCHC 32.9 g/dL (31.0-37.0); MCV 91.6 fL (80.0-100.0); MEAN PLATELET VOLUME 8.4 fL (7.4-10.4); NEUTROPHILS 86.1 % (40-80); PLATELET COUNT 299 10x3/uL (130-400); RBC 3.68 10x6/uL (4.20-6.10); RDW 14.3 % (11.5-14.5)
[2020-02-28 09:10] LABS: CALC OSMOLALITY 259 mosm/kg (275-300); CALCIUM 9.1 mg/dL (8.5-10.1); CARBON DIOXIDE 25.8 mmol/L (21.0-32.0); CHLORIDE - SERUM 99 mmol/L (98-107); GLUCOSE 132 mg/dL (74-106); MAGNESIUM - SERUM 2.1 mg/dL (1.8-2.4); POTASSIUM - SERUM 3.6 mmol/L (3.5-5.1); SODIUM 129 mmol/L (136-145); VANCOMYCIN - TROUGH 14.6 ug/mL (10.0-20.0); eGFR NON AFRICAN AMERICAN 79 mL/min (90-120)
[2020-02-28 09:11] LABS: UREA NITROGEN 10 mg/dL (7-18)
--- NOTE | 2020-02-28 09:30 | NUR ---
RESTING IN BED WITH EYES OPEN, PATIENT SPOUSE AT BEDSIDE. CALL LIGHT WITHIN REACH. NO DISTRESS.
[2020-02-28 09:36] VITALS: BP 108/71
--- NOTE | 2020-02-28 13:20 | NUR ---
PATIENTS REPORTS THAT PATIENT HAS A SMALL EPISODE OF TWITCHING. PATIENT SITTING IN BED, RESP EVEN AND UNLABORED, NO DISTRESS, ALERT/ORIENTED, NO CHANGE FROM PREVIOUS ASSESSMENT THIS AM.
[2020-02-28 13:39] VITALS: BP 98/56
--- NOTE | 2020-02-28 15:37 | NUR ---
PATIENT OOB TO SHOWER AT THIS TIME. FIELD ARTILLERY RADAR OPERATOR NOTIFIED OF PATEINT BEING OFF OF TELEMETRY.
--- NOTE | 2020-02-28 17:35 | EEG ---
PATIENT:ESTHER ROWE MEDICAL RECORD: [id number] DATE OF : 52 LOCATION:D.210 D.M2 ADMISSION DATE: 02/24/20 REFERRING PHYSICIAN: INTERPRETING PHYSICIAN: JONNY ADRIAN MD DATE OF SERVICE: 02/27/2020 DATE OF EE02/27/2020. Room #2109. Ordered by Dr. Adrian. CASE HISTORY: A 69 male admitted with pneumonia and chronic obstructive pulmonary disease with hypoxia and chronic respiratory failure displaying possible seizure on 02/26/2020, lasting a few seconds with staring and poor responsiveness without a postictal phase. Spell occurred while the patient was given Levaquin and Merrem, changed subsequently to Zithromax, Fortaz, and vancomycin. Other medications include Ativan. PROCEDURE: EEG done as a routine bedside portable recording using the standard 10-20 international electrode system. 16 channels used with 17th as EKG. Photic stimulation done as activation procedure. DESCRIPTION: EEG opens with the patient awake transitioning to drowsy and probable stage I sleep with the record displaying during wakefulness, fair organization of background at 9-10 Hz with prominent EMG motor artifact obscuring portions of the record as well as fast beta activities, likely related to medication. Occasional bilateral independent single theta slow waves were seen during wakefulness. Transitions through drowsiness to stage I sleep was observed. Photic stimulation did not yield a photoparoxysmal response. No epileptiform change such as spike, polyspike, or spike and wave was seen. IMPRESSION: Mildly abnormal waking, drowsy, and brief stage I sleep record with background slowing suggestive of encephalopathy. No evidence of seizure disorder was found in this recording. TRANSINT:[id number] Voice Confirmation ID: [id number] DOCUMENT ID: [id number] JONNY ADRIAN MD at 1735 CC: [id number] DICTATION DATE: 02/27/20 1635 E BUSINESS CONSULTANT: 02/27/202013 ADM IN [facility] [address] [id number]
[2020-02-28 20:00] VITALS: BP 110/60
[2020-02-29] VITALS: BP 105/72
[2020-02-29 04:00] VITALS: BP 82/53
[2020-02-29 06:58] LABS: BASOPHILS 0.2 % (0-2); EOSINOPHILS 0.4 % (0-7); HEMATOCRIT 31.9 % (42.0-54.0); HEMOGLOBIN 10.6 g/dL (13.5-17.5); IMMATURE GRANULOCYTES 0.2 % (0-5); LYMPHOCYTES 9.5 % (15-50); MCH 30.4 pg (26.0-34.0); MCHC 33.2 g/dL (31.0-37.0); MCV 91.4 fL (80.0-100.0); MEAN PLATELET VOLUME 8.8 fL (7.4-10.4); MONOCYTES 8.4 % (2-11); NEUTROPHILS 81.3 % (40-80); PLATELET COUNT 343 10x3/uL (130-400); RBC 3.49 10x6/uL (4.20-6.10); RDW 14.4 % (11.5-14.5); WBC 4.5 10x3/uL (4.8-10.8)
[2020-02-29 07:46] LABS: CALC OSMOLALITY 261 mosm/kg (275-300); CALCIUM 9.1 mg/dL (8.5-10.1); CARBON DIOXIDE 22.1 mmol/L (21.0-32.0); CHLORIDE - SERUM 101 mmol/L (98-107); GLUCOSE 103 mg/dL (74-106); MAGNESIUM - SERUM 2.1 mg/dL (1.8-2.4); PHOSPHOROUS 3.6 mg/dL (2.5-4.9); SODIUM 131 mmol/L (136-145); UREA NITROGEN 9 mg/dL (7-18); eGFR NON AFRICAN AMERICAN 79 mL/min (90-120)
[2020-02-29 07:48] LABS: POTASSIUM - SERUM 4.4 mmol/L (3.5-5.1)
[2020-02-29 08:41] VITALS: BP 105/67
--- NOTE | 2020-02-29 11:53 | NUR ---
VANCOMYCIN STILL INFUSING WILL HANG FIORITAZ WHEN VANC FINISHED.
--- NOTE | 2020-02-29 12:49 | MORECARE ---
CASE MANAGEMENT DISCHARGE SUMMARY PATIENT: ESTHER ROWE UNIT: [id number] ADM DATE: 02/24/20 AGE: 69 : 51 SEX: M ROOM/BED: D.2109 AUTHOR: ADAMA DANG PHYSICIAN: REFERRING PHYSICIAN: SERGE RYAN MD DATE OF SERVICE: 02/29/20 Discharge Plan Patient Name: ESTHER ROWE [facility] [facility] 1950 Planned Disposition: Home Anticipated Discharge Date: 03/01/20 Discharge Date: Expected LOS: 6 Initial Reviewer: [email or web address] Initial Review Date: 02/29/2020 Generated: 02/29/20 1:48 pm Coverage Notice Reviewer: [email or web address] Shira Macedo Notice Issued Date-Time: 02/29/2020 12:40 Notice Type: IM Discharge Notice Notice Delivered To: Patient Relationship to Patient: Self Restaurant Server Name: Delivery Method: HAND - Hand Delivered Di Days: Prior Verbal Notification: Recipient Understood Notice: Yes Recipient Signature: Yes Med Rec Note Co-signed by Attending: Coverage Notice Comment: IMM explained, signed, given, copy placed in MR Reviewer: [id number] Shira Macedo Notice Issued Date-Time: 02/29/2020 12:40 Notice Type: Patient Choice Letter Notice Delivered To: Patient Relationship to Patient: Self Restaurant Server Name: Delivery Method: HAND - Hand Delivered Di Days: Prior Verbal Notification: Recipient Understood Notice: Yes Recipient Signature: Yes Med Rec Note Co-signed by Attending: Coverage Notice Comment: Declination for HHS signed Patient Name: ESTHER ROWE Page [phone] at 1249 All edits/amendments must be made on the electronic document DICTATION DATE: 02/29/20 1248 STITCHER SET UP OPERATOR AUTOMATIC: FILIBERTO 02/29/20 1248 RPT#: [id number] DC DATE: STATUS: ADM IN [facility] [address] [place] [address] END OF REPORT
--- NOTE | 2020-02-29 12:57 | MORECARE ---
CASE MANAGEMENT DISCHARGE SUMMARY PATIENT: ESTHER FOLEY UNIT: [id number] ADM DATE: 02/24/20 AGE: 69 : 51 SEX: M ROOM/BED: D.2107 AUTHOR: ALTON,DOC PHYSICIAN: REFERRING PHYSICIAN: SERGE RYAN MD DATE OF SERVICE: 02/29/20 Discharge Plan Patient Name: ESTHER FOLEY Facility: [facility]:[place] : 1950 Planned Disposition: Home Anticipated Discharge Date: 03/01/20 Discharge Date: Expected LOS: 6 Initial Reviewer: [email or web address] Initial Review Date: 02/29/2020 Generated: 02/29/20 1:56 pm Comments DCP- Discharge Planning Updated by [email or web address]: Ria Macedo on 02/29/20 11:[address] Patient Name: ESTHER FOLEY Admission Status: ER Accout number: [id number] Admission Date: 02-24-2020 : 1950 Admission Diagnosis:SHORTNESS OF BREATH Attending: SERGE NOVOA Current LOS: 5 Anticipated DC Date: 03-01-2020 Planned Disposition: Home Primary Insurance: MEDICARE A & B Discharge Planning Comments: CM met with patient to complete initial dc planning assessment, son is in the room and verbal permission received to discuss in front of son. CM educated patient on the CM role and verbal consent given by patient to complete assessment. Patient lives at with his . At discharge patient plans to return and feels this is a safe discharge. CM discussed availability of home health, rehab services, and medical equipment. Patient denied known discharge needs at this time. Declination signed for home health. He states his will transport him home on discharge. His CPAP, oxygen, portable oxygen and nebulizer are provided by [facility]. CM will continue to follow and will assist as needed with dc plans/needs. Human Resources Psychologist: Ria Macedo DCPIA - Discharge Planning Initial Assessment Updated by [id number]: Ria Macedo on 02/29/20 12:50 pm * Is the patient Alert and Oriented? Yes * How many steps to enter\exit or inside your home? 4/0 * PCP Dr. Horvath * Pharmacy [facility] for [facility] nursing meds [facility] for immediate meds * Preadmission Environment Home with Family * ADLs Partial Dependent * Partial ADLs (Assistance needed) Ambulation * Equipment Cane CPAP Nebulizer Other Oxygen * Other Equipment Portable oxygen * List name and contact numbers for known caregivers / representatives who currently or will assist patient after discharge: Linda Foley - [phone] * Verbal permission to speak to the caregivers and representatives has been obtained from the patient. Yes * Community resources currently utilized None * Additional services required to return to the preadmission environment? No * Can the patient safely return to the preadmission environment? Yes * Has this patient been hospitalized within the prior 30 days at any hospital? No Coverage Notice Reviewer: [id number] Shira Macedo Notice Issued Date-Time: 02/29/2020 12:40 Notice Type: IM Discharge Notice Notice Delivered To: Patient Relationship to Patient: Self Powerhouse Tender Name: Delivery Method: HAND - Hand Delivered Di Days: Prior Verbal Notification: Recipient Understood Notice: Yes Recipient Signature: Yes Med Rec Note Co-signed by Attending: Coverage Notice Comment: IMM explained, signed, given, copy placed in MR Reviewer: [id number] Macedo Notice Issued Date-Time: 02/29/2020 12:40 Notice Type: Patient Choice Letter Notice Delivered To: Patient Relationship to Patient: Self Powerhouse Tender Name: Delivery Method: HAND - Hand Delivered Di Days: Prior Verbal Notification: Recipient Understood Notice: Yes Recipient Signature: Yes Med Rec Note Co-signed by Attending: Coverage Notice Comment: Declination for HHS signed Last DP export: 02/29/20 11:49 a Patient Name: ESTHER FOLEY Page [phone] at 1257 All edits/amendments must be made on the electronic document DICTATION DATE: 02/29/20 1256 DOUBLE NEEDLE OPERATOR LOCKSTITCH: FILIBERTO 02/29/20 1256 RPT#: [id number] DC DATE: STATUS: ADM IN [facility] [address] [place] [address] END OF REPORT
--- NOTE | 2020-02-29 15:39 | NUR ---
I have reviewed this patient and I concur with the Shift Assessment completed by the Licensed Practical Nurse today this shift.
[2020-02-29 19:47] VITALS: BP 100/60
--- NOTE | 2020-02-29 19:58 | NUR ---
RPEORT RECEIVED AND ROUNDING COMPLETE. PATIENT SITTING UP IN BED IN [place] VISITING WITH HIS SON. REQUESTED COFFEE AND WATER WHICH HE RECEIVED. RIGHT FOREARM PIV THAT IS SALINE LOCKED, NO DISTRESS NOTED. PAITENT IS A&O X4 AND IN A GREAT MOOD. PATINET IS HARD OF HEARING. PATIENT IS WEARING NASAL CANNULA WITH O2 AT 2L. BIPAP AT BEDSIDE. NO OTHER NEEDS VOICED. CALL LIGHT WITHIN REACH AND BED IN LOWEST LOCKED POSITION.
--- NOTE | 2020-02-29 22:26 | NUR ---
PATIENT USED CALL LIGHT TO INFORM THE NURSE THAT HIS RIGHT FOREARM PIV IS LEAKING, REMOVED PI CATH INTACT. PLACE A NEW 2OG IN LEFT FOREARM 1 STICK PATIENT TOLERATED WELL. REQUESTED COFFEE AND ICE CREAM, PATIENT RECEIVED BOTH.
[2020-03-01] VITALS: BP 116/75
[2020-03-01 04:00] VITALS: BP 129/81
[2020-03-01 07:12] LABS: BASOPHILS 0.2 % (0-2); EOSINOPHILS 2.1 % (0-7); HEMATOCRIT 30.4 % (42.0-54.0); HEMOGLOBIN 10.1 g/dL (13.5-17.5); IMMATURE GRANULOCYTES 0.2 % (0-5); LYMPHOCYTES 10.8 % (15-50); MCH 30.5 pg (26.0-34.0); MCHC 33.2 g/dL (31.0-37.0); MCV 91.8 fL (80.0-100.0); MEAN PLATELET VOLUME 8.5 fL (7.4-10.4); MONOCYTES 10.1 % (2-11); NEUTROPHILS 76.6 % (40-80); PLATELET COUNT 298 10x3/uL (130-400); RBC 3.31 10x6/uL (4.20-6.10); RDW 14.6 % (11.5-14.5); WBC 5.6 10x3/uL (4.8-10.8)
[2020-03-01 07:30] LABS: CALC OSMOLALITY 263 mosm/kg (275-300); CALCIUM 8.5 mg/dL (8.5-10.1); CARBON DIOXIDE 24.7 mmol/L (21.0-32.0); CHLORIDE - SERUM 100 mmol/L (98-107); GLUCOSE 100 mg/dL (74-106); MAGNESIUM - SERUM 1.9 mg/dL (1.8-2.4); PHOSPHOROUS 3.6 mg/dL (2.5-4.9); POTASSIUM - SERUM 4.5 mmol/L (3.5-5.1); SODIUM 132 mmol/L (136-145); UREA NITROGEN 9 mg/dL (7-18); VANCOMYCIN - TROUGH 14.5 ug/mL (10.0-20.0); eGFR NON AFRICAN AMERICAN 79 mL/min (90-120)
--- NOTE | 2020-03-01 08:00 | NUR ---
PT ALERT AND INDEPENDENT IN ROOM. PT LIKES BLACK COFFEE AND ICE WATER. PT CAN EXPRESS HIS NEEDS. CALL LIGHT AND PERSONAL ITEMS ARE WITHIN REACH. BED LOW AND LOCKED.
[2020-03-01 08:11] VITALS: BP 106/64
[2020-03-01 11:16] VITALS: Ht 175.3 cm; Wt 51.5 kg
[2020-03-01 16:55] VITALS: BP 95/58
[2020-03-01 20:56] VITALS: BP 107/68
[2020-03-02] VITALS: BP 152/84
[2020-03-02 04:00] VITALS: BP 111/78
[2020-03-02 08:00] VITALS: BP 95/56
[2020-03-02 12:00] VITALS: BP 104/65
[2020-03-02 16:00] VITALS: BP 95/68
[2020-03-02 20:00] VITALS: BP 105/69
--- NOTE | 2020-03-02 20:09 | NUR ---
RECEIVED BEDSIDE REPORT. ROUNDING COMPLETE. PATIENT IS ALERT AND ORIENTED, RESTING COMFORTABLY IN BED. RESPIRATIONS ARE EVEN AND UNLABORED. NO S/S OF DISTRESS. NO C/O PAIN. CALL LIGHT WITHIN REACH. WILL CPOC.
[2020-03-03] VITALS: BP 112/68
[2020-03-03 04:00] VITALS: BP 102/65
--- NOTE | 2020-03-03 07:00 | NUR ---
RECEIVED REPORT. ASSUMED CARE OF PATIENT. CALL LIGHT WITHIN REACH. PATIENT SITTING UP IN BED, ALERT/ORIENTED. PT STATES HE MAY GET TO GO HOME TODAY. WHITE BOARD UPDATED, BEDSIDE SHIFT REPORT COMPLETE. NO DISTRESS.
[2020-03-03 09:02] VITALS: BP 97/54
[2020-03-03] MEDS ORDERED: OMNICEF300 MG PO (11:36)
[2020-03-03] MEDS ORDERED: KEPPRA750 MG PO (12:15)
--- NOTE | 2020-03-03 13:30 | NUR ---
22 GAUGE IV REMOVED FROM LEFT FOREARM. CATHETER TIP INTACT. NO BLEEDING FROM SITE. 2X2 GAUZE APPLIED AND SECURED WITH BANDAID. PATIENT TOLERATED IV REMOVAL WELL HE IS BEING DISCHARGED TO HOME.
--- NOTE | 2020-03-03 13:31 | NUR ---
TELEMETRY REMOVED AND RETURNED TO BUILDING MAINTENANCE SUPERVISOR.
--- NOTE | 2020-03-03 13:35 | NUR ---
DISCHARGE PAPERWORK PROVIDED TO PATIENT AND HIS . EDUCATION PROVIDED AND ALL QUESTIONS ANSWERED. PATIENT AND HIS VERBALIZED THE UNDERSTANDING OF MAKING FOLLOWUP APPOINTMENTS ON THURSDAY WITH ALL INDICATED PHYSICIANS ON THE DISCHARGE PAPERWORK.
--- NOTE | 2020-03-03 13:48 | NUR ---
PATIENT LEFT UNIT VIA WHEELCHAIR AT THIS TIME. PATIENT DISCHARGED TO HOME WITH ALL PERSONAL BELONGINGS. PATIENT IN NO DISTRESS UPON LEAVING UNIT. PATIENT THANKED THIS DIE CAST ENGINEER FOR ALL CARES RENDERED DURING THIS HOSPITALIZATION.
--- NOTE | 2020-03-05 07:57 | MORECARE ---
CASE MANAGEMENT DISCHARGE SUMMARY PATIENT: ESTHER FOLEY UNIT: [id number] ADM DATE: 02/24/20 AGE: 69 : 51 SEX: M ROOM/BED: D.2100 AUTHOR: ALTONDOC PHYSICIAN: REFERRING PHYSICIAN: SERGE RYAN MD DATE OF SERVICE: 03/05/20 Discharge Plan Patient Name: ESTHER FOLEY Facility: [facility]:[place] : 1950 Planned Disposition: Home Anticipated Discharge Date: 03/01/20 Discharge Date: 03/03/2020 Expected LOS: 6 Initial Reviewer: [email or web address] Initial Review Date: 02/29/2020 Generated: 03/05/20 8:56 am Comments DCP- Discharge Planning Updated by [id number]: Ria Macedo on 02/29/20 11:[address] Patient Name: ESTHER FOLEY Admission Status: ER Accout number: [id number] Admission Date: 02-24-2020 : 1950 Admission Diagnosis:SHORTNESS OF BREATH Attending: SERGE NOVOA Current LOS: 5 Anticipated DC Date: 03-01-2020 Planned Disposition: Home Primary Insurance: MEDICARE A & B Discharge Planning Comments: CM met with patient to complete initial dc planning assessment, son is in the room and verbal permission received to discuss in front of son. CM educated patient on the CM role and verbal consent given by patient to complete assessment. Patient lives at with his . At discharge patient plans to return and feels this is a safe discharge. CM discussed availability of home health, rehab services, and medical equipment. Patient denied known discharge needs at this time. Declination signed for home health. He states his will transport him home on discharge. His CPAP, oxygen, portable oxygen and nebulizer are provided by [facility]. CM will continue to follow and will assist as needed with dc plans/needs. Timber Framer Helper: Ria Macedo DCPIA - Discharge Planning Initial Assessment Updated by [id number]: Ria Macedo on 02/29/20 12:50 pm * Is the patient Alert and Oriented? Yes * How many steps to enter\exit or inside your home? 4/0 * PCP Dr. Horvath * Pharmacy [facility] for tank terminal gauger meds [facility] for immediate meds * Preadmission Environment Home with Family * ADLs Partial Dependent * Partial ADLs (Assistance needed) Ambulation * Equipment Cane CPAP Nebulizer Other Oxygen * Other Equipment Portable oxygen * List name and contact numbers for known caregivers / representatives who currently or will assist patient after discharge: Linda Foley - [phone] * Verbal permission to speak to the caregivers and representatives has been obtained from the patient. Yes * Community resources currently utilized None * Additional services required to return to the preadmission environment? No * Can the patient safely return to the preadmission environment? Yes * Has this patient been hospitalized within the prior 30 days at any hospital? No Coverage Notice Reviewer: [id number] Shira Macedo Notice Issued Date-Time: 02/29/2020 12:40 Notice Type: IM Discharge Notice Notice Delivered To: Patient Relationship to Patient: Self Supervisor Quilting Name: Delivery Method: HAND - Hand Delivered Di Days: Prior Verbal Notification: Recipient Understood Notice: Yes Recipient Signature: Yes Med Rec Note Co-signed by Attending: Coverage Notice Comment: IMM explained, signed, given, copy placed in MR Reviewer: [id number] Macedo Notice Issued Date-Time: 02/29/2020 12:40 Notice Type: Patient Choice Letter Notice Delivered To: Patient Relationship to Patient: Self Supervisor Quilting Name: Delivery Method: HAND - Hand Delivered Di Days: Prior Verbal Notification: Recipient Understood Notice: Yes Recipient Signature: Yes Med Rec Note Co-signed by Attending: Coverage Notice Comment: Declination for HHS signed Last DP export: 02/29/20 11:57 a Patient Name: ESTHER FOLEY Page [phone] at 0757 All edits/amendments must be made on the electronic document DICTATION DATE: 03/05/20 0756 ORACLE ERP ARCHITECT: FILIBERTO 03/05/20 0756 RPT#: [id number] DC DATE:03/03/20 STATUS: DIS IN [facility] [address] [place] [address] END OF REPORT
== END 2020-03-03 13:45 | disposition home or self-care (01) | DRG 190 ==
LOC: D.ER 21:51 → D.M2 22:48
PROVIDERS: Family Medicine; Internal Medicine Pulmonary Disease; ADMIT Family Medicine Adult Medicine; ATTEND Family Medicine Adult Medicine
DX: J47.0 Bronchiectasis with acute lower respiratory infection (principal); J96.21 Acute and chronic respiratory failure with hypoxia; E87.1 Hypo-osmolality and hyponatremia; E44.0 Moderate protein-calorie malnutrition; Z68.1 Body mass index [BMI] 19.9 or less, adult; J18.9 Pneumonia, unspecified organism; I10 Essential (primary) hypertension; F41.8 Other specified anxiety disorders; E78.5 Hyperlipidemia, unspecified; I25.10 Atherosclerotic heart disease of native coronary artery without angina pectoris; A31.0 Pulmonary mycobacterial infection; K21.9 Gastro-esophageal reflux disease without esophagitis; D50.9 Iron deficiency anemia, unspecified; R56.9 Unspecified convulsions